=== PATIENT | male | born 1955 | race Caucasian/White ===

== ENCOUNTER → 2016-06-02 | Outpatient (CLI) | payer OTHER ==
[2016-06-02 15:49] VITALS: BP 135/87; PULSE 72; RESP 16; TEMP 97.9
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
== END | disposition home or self-care (01) ==
LOC: PNWHC3 13:55
PROVIDERS: ATTEND Specialist
DX: M51.36 Other intervertebral disc degeneration, lumbar region (principal); M47.896 Other spondylosis, lumbar region; M46.96 Unspecified inflammatory spondylopathy, lumbar region; M16.12 Unilateral primary osteoarthritis, left hip; M17.11 Unilateral primary osteoarthritis, right knee; Z88.0 Allergy status to penicillin; Z88.8 Allergy status to other drugs, medicaments and biological substances; Z88.6 Allergy status to analgesic agent; Z91.048 Other nonmedicinal substance allergy status; Z79.899 Other long term (current) drug therapy; Z87.891 Personal history of nicotine dependence; J45.909 Unspecified asthma, uncomplicated; K21.9 Gastro-esophageal reflux disease without esophagitis; I45.6 Pre-excitation syndrome
CPT/HCPCS: 80307; G0463; 80345; 80346; 80364; 99201

== ENCOUNTER → 2016-06-30 | Outpatient (CLI) | payer OTHER ==
[2016-06-30 12:44] VITALS: BP 132/69; PULSE 69; RESP 16; TEMP 97.6
--- NOTE | 2016-06-30 14:43 | P.PN ---
Subjective This is follow-up visit for this patient with a history of severe and chronic low back pain secondary to lumbar degenerative disc disease lumbar spondylosis with facet arthropathy, and also patient and osteoarthritis of the knee, and also arthritis of the left hip, and is currently on pain medications [place] 10/325 2 tablets every 6 hours Patient denies any side effects of the medication, denies excessive drowsiness or sleepiness, denies suicidal ideation, and reports that the current pain medication is helping To control the pain and improve activity of daily living Physical Examinations : 1-Constitutiona : Cooperative , not in acute distress . 2-HEENT : nech ; supple , no Lymphadenopathy , no Thyromegaly , normal thyroid size . eyes : no ptosis , no icterus, no photophobia . ENT : normal of hearing , normal oropharynx , no Thrush . 3- Respiratory : Chest clear to auscultations Bilaterally , no wheezing , no Rhonchi . 4- Cardiovascular : regular rate and rhythem , S1 , S2 , no S3 , no S4. 5- Gastrointestinal : abdomen soft no tenderness , bowel sounds positive all four quadrents , no organomegally . 6- Genitourinary : Defferred . 7- neurologic : Cranial nerve II to XII intact , no focal neurological deffecit . 8-psychatric : alert , oriented X 3 , appropriate affect , intact judgment and insight . 9-Lymphatic : no Lymphadenopathy . 10- musculoskeltal : exams of the cervical spine = motor strength normal bilateral upper extremities exams of the Lumber spine = motor strength lower extremities ,thigh and legs .4/5 deep tendon reflexes : normal Knee Jerk , normal ankle Jerk . lumber facet Loading Test positive strait leg raising test positive at 30 degree , RT ,LT , Fabere test positive RT and positive LT . Range of motion: Range of motion in flexion of the lumbar spine 30 degrees Range of motion range of motion of extension of the lumbar spine 10 Active and passive movement of the left hip associated with severe pain. Flexion and extension of the right knee associated with severe pain Assessment and plan = - Chronic low back pain secondary to lumbar degenerative disc disease , lumbar spondylosis with facet arthropathy without myelopathy , - chronic and current use of high-risk medication (Opioids). Osteoarthritis of the left hip , osteoarthritis of the right knee The patient was counseled about risk of opioid use, psychological risk associated with opioids and was orally counseled to not overuse , divert,or sell dictations to take medications as prescribed only , and to restore medication in safe location , and the patient counseled against driving while using narcotic medications, and also not to use alcohol or any illicit recreational drugs, the patient's verbalized understanding that the lack of compliance will result in failure to renew narcotic prescription and possible discharge from the clinic - diagnoses, prognosis, and treatment options including but not limited to physical therapy, surgical interventions, interventional therapies , and medication management including narcotics and adjuvant medication were discussed with the patient and all The questions answered -medication management =1-continue [place] 10/325 2 tablets every 6 hours dispense 240 with 1 refill. The patient already scheduled to have a left total hip replacement to be done at [facility], , and patient will follow up with our pain clinic in 2 months after the left hip replacement - Objective - Vital Signs Vital signs: Vital Signs Temp 97.6 F 06/30/16 12:34 Pulse 69 06/30/16 12:34 Resp 16 06/30/16 12:34 BP 132/69 06/30/16 12:34 Pulse Ox Intake & Output 06/29/16 06/30/16 06/30/16 18:59 06:59 18:59 Weight 118.841 kg
== END | disposition home or self-care (01) ==
LOC: PNWHC3 12:08
PROVIDERS: ATTEND Specialist
DX: M51.36 Other intervertebral disc degeneration, lumbar region (principal); M47.816 Spondylosis without myelopathy or radiculopathy, lumbar region; M46.96 Unspecified inflammatory spondylopathy, lumbar region; Z79.891 Long term (current) use of opiate analgesic; M16.12 Unilateral primary osteoarthritis, left hip; M17.11 Unilateral primary osteoarthritis, right knee
CPT/HCPCS: 99211

== ENCOUNTER → 2016-08-23 | Outpatient (CLI) | payer OTHER ==
[2016-08-23 12:59] VITALS: BP 132/72; PULSE 71; RESP 18; TEMP 97.6
--- NOTE | 2016-08-23 13:32 | P.PN ---
Progress Note - Text Patient returns for followup for chronic hip and knee pain, s/p left SOL in June 2016. Patient continues on [place] 10 8 pills/day medications for pain with some relief. Patient denies adverse drug effects from medications. Today, pt denies new-onset weakness, bowel/bladder incontinence, or any other signs or symptoms of cauda equina syndrome. There are no signs of acute intoxication, and no indications of medication diversion or overuse. In addition to above, 13-point review of systems is also negative for chest pain , shortness of breath, changes in vision, changes in hearing, new onset weakness , abdominal pain, diarrhea, extreme fatigue, malaise, fever, skin changes, homicidal or suicidal ideation, or bowel or bladder incontinence. Vital Signs: Reviewed in EMR Gen: WDWN, AAOx3, NAD HEENT: NCAT, EOMI, hearing grossly normal Pulm: resp unlabored Abd: soft, NT, ND Neck: supple, trachea midline L hip TTP over incision; C/D/I palpable crepitus in bilateral knees with flexion/extension Neuro: CN II-XII grossly intact, muscle strength lower extremities PRESERVED Imaging: Reviewed in EMR Assessment: 1. hip OA 2. knee OA 3. genicular neuralgia Plan: 1. Explanation: Opioid and psychological risk scores were reviewed. Diagnoses , prognoses, and multiple treatment options including but not limited to physical therapy, interventional therapies, adjuvant medical therapies, narcotic medication therapies, and surgery were discussed with the patient and all questions were answered to the patient's satisfaction. 2. Opioid agreement: Patient has previously signed narcotic agreement, and was orally counseled to not overuse, abuse, divert, or cell medications, and to take them as prescribed by only 1 healthcare provider. The patient was also counseled to store opioid medications in a safe and preferably locked location. Patient was also counseled against driving or operating heavy equipment while using narcotic medications and also to not use alcohol or any illicit or recreational drugs. The patient verbalized understanding that lack of compliance with any of the above and likely result in failure to renew narcotic prescriptions, possible discharge from the clinic, and possible legal ramifications thereafter if indicated. 3. Counseling: The patient was counseled extensively on BODY MASS INDEX, EXERCISE. Specifically, the patient was instructed regarding the importance of weight control and exercise in the context of both chronic pain and overall health. 4. Procedures: patient to read about genicular NBs 5. Consultations: None 6. Investigations: None 7. Medications: [place] 10/325 #210 with no refills 8. Disposition: f/u for re-eval in 4-6 weeks; patient continuing in physical therapy for now PQRS measures: 1-Patient's medications are documented in the chart. 2-Tobacco use is negative, counseling NOT given 3-Patient has not had a pneumococcal vaccine. 4-Advanced care planning discussed, patient unable to give. 5-Opioid contract signed with the patient. 6-Pain positive, follow-up visit or procedure scheduled 7-Patient's blood pressure measured and documented, and patient will follow up with the primary care due to hypertension. 8-Patient's weight was measured, and body mass index ABOVE the normal limits, and counseling was done. Patient instructed to follow up with PCP. 9-Patient WAS NOT identified as an unhealthy alcohol user.
== END | disposition home or self-care (01) ==
LOC: PNWHC3 12:39
PROVIDERS: ATTEND Anesthesiology
DX: M16.10 Unilateral primary osteoarthritis, unspecified hip (principal); M17.9 Osteoarthritis of knee, unspecified; Z96.642 Presence of left artificial hip joint
CPT/HCPCS: 99211

== ENCOUNTER → 2016-10-04 | Outpatient (CLI) | payer OTHER ==
--- NOTE | 2016-10-04 12:56 | P.PN ---
Progress Note - Text Patient returns for followup for chronic hip and knee pain, s/p left SOL in June 2016, now has improved pain in left hip that is allowing him to walk much better. Patient continues on [place] 10/325 7 pills/day medications for pain with some relief. Patient denies adverse drug effects from medications. Today, pt denies new-onset weakness, bowel/bladder incontinence, or any other signs or symptoms of cauda equina syndrome. There are no signs of acute intoxication, and no indications of medication diversion or overuse. In addition to above, 13-point review of systems is also negative for chest pain , shortness of breath, changes in vision, changes in hearing, new onset weakness , abdominal pain, diarrhea, extreme fatigue, malaise, fever, skin changes, homicidal or suicidal ideation, or bowel or bladder incontinence. Vital Signs: Reviewed in EMR Gen: WDWN, AAOx3, NAD HEENT: NCAT, EOMI, hearing grossly normal Pulm: resp unlabored Abd: soft, NT, ND Neck: supple, trachea midline L hip TTP over incision, well-healed palpable crepitus in bilateral knees with flexion/extension, worse R knee Neuro: CN II-XII grossly intact, muscle strength lower extremities PRESERVED Imaging: Reviewed in EMR Assessment: 1. hip OA 2. knee OA 3. genicular neuralgia Plan: 1. Explanation: Opioid and psychological risk scores were reviewed. Diagnoses , prognoses, and multiple treatment options including but not limited to physical therapy, interventional therapies, adjuvant medical therapies, narcotic medication therapies, and surgery were discussed with the patient and all questions were answered to the patient's satisfaction. 2. Opioid agreement: Patient has previously signed narcotic agreement, and was orally counseled to not overuse, abuse, divert, or cell medications, and to take them as prescribed by only 1 healthcare provider. The patient was also counseled to store opioid medications in a safe and preferably locked location. Patient was also counseled against driving or operating heavy equipment while using narcotic medications and also to not use alcohol or any illicit or recreational drugs. The patient verbalized understanding that lack of compliance with any of the above and likely result in failure to renew narcotic prescriptions, possible discharge from the clinic, and possible legal ramifications thereafter if indicated. 3. Counseling: The patient was counseled extensively on BODY MASS INDEX, EXERCISE. Specifically, the patient was instructed regarding the importance of weight control and exercise in the context of both chronic pain and overall health. 4. Procedures: patient to read about genicular NBs 5. Consultations: None 6. Investigations: None 7. Medications: [place] 10/325 #195 for first month, then #180 for second month 8. Disposition: f/u for re-eval in 4-6 weeks; patient continuing in physical therapy for now and Dr. Hannah is doing injections in his right knee. I told patient we will likely keep him at [place] #180 until he has surgery on his right knee PQRS measures: 1-Patient's medications are documented in the chart. 2-Tobacco use is negative, counseling NOT given 3-Patient has not had a pneumococcal vaccine. 4-Advanced care planning discussed, patient unable to give. 5-Opioid contract signed with the patient. 6-Pain positive, follow-up visit or procedure scheduled 7-Patient's blood pressure measured and documented, and patient will follow up with the primary care due to hypertension. 8-Patient's weight was measured, and body mass index ABOVE the normal limits, and counseling was done. Patient instructed to follow up with PCP. 9-Patient WAS NOT identified as an unhealthy alcohol user.
== END | disposition home or self-care (01) ==
LOC: PNWHC3 11:44
PROVIDERS: ATTEND Anesthesiology
DX: M16.10 Unilateral primary osteoarthritis, unspecified hip (principal); M17.9 Osteoarthritis of knee, unspecified; M79.2 Neuralgia and neuritis, unspecified
CPT/HCPCS: 99211

== ENCOUNTER → 2016-11-29 | Outpatient (CLI) | payer OTHER ==
[2016-11-29 12:53] VITALS: BP 142/90; PULSE 66; RESP 66; TEMP 97
--- NOTE | 2016-11-29 13:14 | P.PN ---
Progress Note - Text Patient returns for followup for chronic hip and knee pain, s/p left SOL in June 2016, now has improved pain in left hip that is allowing him to walk much better, although he still has some pain in his hip. Patient continues on [place] 10/325 6 pills/day for pain with some relief. Patient denies adverse drug effects from medications. Today, pt denies new-onset weakness, bowel/ bladder incontinence, or any other signs or symptoms of cauda equina syndrome. There are no signs of acute intoxication, and no indications of medication diversion or overuse. In addition to above, 13-point review of systems is also negative for chest pain , shortness of breath, changes in vision, changes in hearing, new onset weakness , abdominal pain, diarrhea, extreme fatigue, malaise, fever, skin changes, homicidal or suicidal ideation, or bowel or bladder incontinence. Vital Signs: Reviewed in EMR Gen: WDWN, AAOx3, NAD HEENT: NCAT, EOMI, hearing grossly normal Pulm: resp unlabored Abd: soft, NT, ND Neck: supple, trachea midline L hip TTP over incision, well-healed palpable crepitus in bilateral knees with flexion, worse in R knee; gross swelling in R knee, worst laterally Neuro: CN II-XII grossly intact, muscle strength lower extremities PRESERVED Imaging: Reviewed in EMR Assessment: 1. hip OA 2. knee OA 3. genicular neuralgia Plan: 1. Explanation: Opioid and psychological risk scores were reviewed. Diagnoses , prognoses, and multiple treatment options including but not limited to physical therapy, interventional therapies, adjuvant medical therapies, narcotic medication therapies, and surgery were discussed with the patient and all questions were answered to the patient's satisfaction. 2. Opioid agreement: Patient has previously signed narcotic agreement, and was orally counseled to not overuse, abuse, divert, or cell medications, and to take them as prescribed by only 1 healthcare provider. The patient was also counseled to store opioid medications in a safe and preferably locked location. Patient was also counseled against driving or operating heavy equipment while using narcotic medications and also to not use alcohol or any illicit or recreational drugs. The patient verbalized understanding that lack of compliance with any of the above and likely result in failure to renew narcotic prescriptions, possible discharge from the clinic, and possible legal ramifications thereafter if indicated. 3. Counseling: The patient was counseled extensively on BODY MASS INDEX, EXERCISE. Specifically, the patient was instructed regarding the importance of weight control and exercise in the context of both chronic pain and overall health. 4. Procedures: R genicular nerve block 5. Consultations: None 6. Investigations: None 7. Medications: [place] 10/325 #180 with one refill 8. Disposition: f/u for procedure as scheduled PQRS measures: 1-Patient's medications are documented in the chart. 2-Tobacco use is negative 3-Patient has not had a pneumococcal vaccine. 4-Advanced care planning discussed, patient unable to give. 5-Opioid contract signed with the patient. 6-Pain positive, follow-up visit or procedure scheduled 7-Patient's blood pressure measured and documented, and patient will follow up with the primary care due to hypertension. 8-Patient's weight was measured, and body mass index ABOVE the normal limits, and counseling was done. Patient instructed to follow up with PCP. 9-Patient WAS NOT identified as an unhealthy alcohol user.
== END | disposition home or self-care (01) ==
LOC: PNWHC3 11:54
PROVIDERS: ATTEND Anesthesiology
DX: M16.12 Unilateral primary osteoarthritis, left hip (principal); M17.9 Osteoarthritis of knee, unspecified; M79.2 Neuralgia and neuritis, unspecified
CPT/HCPCS: 99211

== ENCOUNTER 2016-12-27 09:09 | Day surgery (SDC) | payer OTHER ==
[2016-12-26 11:54] VITALS: BMI 36.2
[~2016-12-27 09:09] MED LIST: LACTATED RINGERS 1,000 ML IV SCH
[2016-12-27 09:41] VITALS: TEMP 96.4
[2016-12-27] MEDS ORDERED: LIDOCAINE 1% 20 ML VIAL (10MG/ML) FOR IV START INTRADERMA ONE (09:43)
--- NOTE | 2016-12-27 11:02 | P.PCN ---
Date of Procedure: 12/27/16 Preoperative Diagnosis: Right knee pain due to osteoarthritis Postoperative Diagnosis: Same as above Procedure(s) Performed: Right knee genicular nerve block for the superior lateral, superior medial, and inferior medial genicular nerves under fluoroscopic guidance Implants: Anesthesia: other (Moderate conscious sedation with IV fentanyl and Versed) Surgeon: Lilibeth Wilhelm Pathology: none sent Condition: stable Disposition: PACU Indications for Procedure: Operative Findings: Description of Procedure: The patient was seen in preop holding area consent was obtained then he was brought into the procedure 1 placed in the supine position. Skin was prepped with ChloraPrep and draped in a sterile manner. Lidocaine 1% was used to numb the skin up at the target points that were chosen as follows: For the superior genicular the target points were the connection between the femur shaft and the inferior epephyses laterally and medially. For the inferior medial genicular nerve the target point was at the connection between the tibial shaft and the superior epiphysis of the right tibia. The lateral view of fluoroscopy the target point was at the midpoint of the femur and tibial shafts. Used 22-gauge 3-1/2 inch Quincke spinal needles for this procedure and after verifying the needle tips position on the AP and lateral views of fluoroscopy I injected 2 MLS of through each needle of a mixture of 5 MLS Marcaine 0.5% +40 mg of Kenalog. Patient tolerated procedure well.
--- NOTE | 2016-12-27 11:05 | FL ---
EXAMINATION TYPE: FL guided pain mgmt statistic DATE OF EXAM: 12/27/2016 CLINICAL HISTORY: Knee pain. TECHNIQUE: Fluoroscopy. COMPARISON: None. FINDINGS: Fluoroscopic guidance was provided during pain relief procedure performed by Dr. Wilhelm . A total of 41 seconds of fluoroscopic time was utilized during the procedure and 3 spot images are acquired. Images acquired shows needle localization at several levels in the knee. IMPRESSION: As Above.
[2016-12-27 11:06] VITALS: RESP 18
[2016-12-27 11:28] VITALS: BP 133/77; PULSE 61
[2016-12-27] MEDS ORDERED: IV FLUID CONTINUATION 1,000 ML IV ONE (11:35)
== END 2016-12-27 11:47 | disposition home or self-care (01) ==
LOC: ORPAIN 09:09
DX: M17.11 Unilateral primary osteoarthritis, right knee (principal); Z88.6 Allergy status to analgesic agent; Z88.5 Allergy status to narcotic agent; Z88.0 Allergy status to penicillin
CPT/HCPCS: 64450; 99152; J2250; J3301; J3010

== ENCOUNTER → 2017-02-07 | Day surgery (SDC) | payer OTHER ==
[2017-01-19 12:45] VITALS: BMI 36.9
== END ==
LOC: ORPAIN 08:24
PROVIDERS: ATTEND Anesthesiology
DX: M51.36 Other intervertebral disc degeneration, lumbar region (principal)

== ENCOUNTER 2017-02-13 07:16 | Day surgery (SDC) | payer OTHER ==
[2017-02-13] MEDS ORDERED: LACTATED RINGERS 1,000 ML IV SCH (07:45)
[2017-02-13 07:49] VITALS: RESP 18; TEMP 97.7
[2017-02-13] MEDS ORDERED: IV FLUID CONTINUATION 800 ML IV ONE (08:34)
--- NOTE | 2017-02-13 08:34 | FL ---
Fluoroscopy History: RIGHT GENICULAR NERVE BLOCK. RIGHT GENICULAR NERVE BLOCK. 17 SEC FL TIME. 2 IMAGES SCANNED
[2017-02-13 08:43] VITALS: BP 136/75; PULSE 70
--- NOTE | 2017-02-13 09:01 | P.PCN ---
Date of Procedure: 02/13/17 Surgeon: Anil Nassar Pathology: none sent Condition: stable Disposition: PACU Description of Procedure: PREOPERATIVE DIAGNOSIS: chronic knee pain due to OA; genicular neuralgia POSTOPERATIVE DIAGNOSIS: same PROCEDURE DESCRIPTION: Patient presents for right knee genicular NB under fluoroscopy. The procedure is performed using fluoroscopic guidance during needle placement to assure proper position and maximize safety. No use of blood thinners. ANESTHESIA: Local with 1% lidocaine; conscious sedation EBL: Minimal PROCEDURE INDICATION: Patient with persistent knee pain due to genicular neuralgia and knee osteoarthritis, here for diagnostic genicular NB. Pt does not take any blood thinning medications. Patient got very little relief from first genicular NB done in December 2016. PROCEDURE DESCRIPTION: The patient was seen and identified in the preoperative area. Risks, benefits, complications, and alternatives were discussed with the patient (including but not limited to incomplete pain relief, bleeding, infection, nerve damage, and allergies to medications), the patient agreed to proceed with the procedure and signed the consent after all questions were answered. Patient was taken to the OR and time out was completed to verify proper patient, position, laterality of pain, and allergies. Pt was placed in the supine position and a pillow was placed under the right knee to induce flexion. The right knee was prepped and draped in the usual sterile fashion. Using AP fluoroscopic guidance, the right knee was identified as were the areas of the superior medial epicondyle of the right femur, superior lateral epicondyle of the right femur, and distal medial epicondyle of the right tibia. Using lidocaine 1% for skin and subcutaneous tissue infiltrations, these three areas were accessed using 22-gauge Quincke-type 3.5-inch spinal needles and the needle tips were placed directly on the periosteum at all three locations. Lateral view fluoroscopy demonstrated that the needles were approximately long term through the leg and the tips of the needles were at roughly the long term point of the bone on both the femur and the tibia. After negative aspiration for heme and in the absence of paresthesias, 2 ml of the 6 ml mixture of 5 ml 0.5% PF bupivacaine and 40 mg Kenalog was injected at each site. [place] were withdrawn intact. At the end of the procedure, the skin was cleansed and bandages were applied. COMPLICATIONS: None. DISPOSITION/PLAN: The patient taken to the recovery area after the procedure in a stable condition for observation. Patient was reexamined prior to discharge and there were no issues. Patient was discharged home, accompanied by an adult, after meeting discharged criteria. Discharge instructions were give to the patient by the staff. Patient was specifically instructed not to drive today and to rest for the rest of the day. Patient will follow up in clinic in 4-6 weeks.
== END 2017-02-13 09:08 | disposition home or self-care (01) ==
LOC: ORPAIN 07:16
PROVIDERS: ATTEND Anesthesiology
DX: G89.29 Other chronic pain (principal); M17.11 Unilateral primary osteoarthritis, right knee; G58.8 Other specified mononeuropathies; I10 Essential (primary) hypertension; F41.9 Anxiety disorder, unspecified; Z88.5 Allergy status to narcotic agent
CPT/HCPCS: 64450; 99152; J2250; J3301; J3010

== ENCOUNTER → 2017-03-13 | Outpatient (CLI) | payer OTHER ==
[2017-03-13 14:32] VITALS: BP 140/73; PULSE 67; RESP 16; TEMP 98.1
--- NOTE | 2017-03-13 16:01 | P.PN ---
Subjective Progress Note Date: 03/13/17 This is a 61 years old male with a history of chronic right knee pain diagnosed with osteoarthritis of the right knee and right genicular nerve neuralgia, we have done diagnostic genicular block 2 patient reported he had no benefit after the genicular nerve block, and he is here to discuss the result of the treatment and also for medication refill is currently on [place] 10/325 every 4 hours he denies any side effect of the medication, he denies any excessive drowsiness or sleepiness and he denies any suicidal ideation Objective - Vital Signs Vital signs: Vital Signs Temp 98.1 F 03/13/17 14:20 Pulse 67 03/13/17 14:20 Resp 16 03/13/17 14:20 BP 140/73 03/13/17 14:20 Pulse Ox Intake & Output 03/12/17 03/13/17 03/13/17 18:59 06:59 18:59 Weight 120.202 kg - Exam Physical Examinations : 1-Constitutiona : Cooperative , not in acute distress . 2-HEENT : nech ; supple , no Lymphadenopathy , normal thyroid size . eyes : no ptosis , no icterus, no photophobia . ENT : normal of hearing , normal oropharynx , no Thrush . 3- Respiratory : Chest clear to auscultations Bilaterally , no wheezing , no Rhonchi . 4- Cardiovascular : regular rate and rhythem , S1 , S2 , no S3 , no S4. 5- Gastrointestinal : abdomen soft no tenderness , bowel sounds positive all four quadrents , no organomegally . 6- Genitourinary : Defferred . 7- neurologic : Cranial nerve II to XII intact , no focal neurological deffecit . 8-psychatric : alert , oriented X 3 , appropriate affect , intact judgment and insight . 9-Lymphatic : no Lymphadenopathy . 10- musculoskeltal : Flexion and extension of right knee , associated to severe pain there is no sign of effusion, no erythema Assessment and Plan Assessment: Assessment and plan= Chronic right knee pain secondary to stress over the right knee/right geniculate neuralgia , status post right geniculate a block 2 without any benefit chronic and current use of high-risk medication (opioids) Patient denies any side effects of the current pain medication and the current treatment/medication ML and the patient to do activity of daily living , Diagnoses, prognosis, treatment options, including but not limited to physical therapy, medication management, interventional therapies, and surgery, were discussed with the patient All the questions answered Patient signed the narcotic agreement, and he was orally counseled, not to overuse, not to abuse, not to Divert , not tp sell pain medication, and to take it as prescribed only, Patient was counseled not to drive or operate heavy equipment while using narcotic medication, and advised not to use alcohol or any Illicit drugs while using the narcotis, the patient's verbalized understanding that lack of compliance with any of the above instructions and will likely to cause discharge from the pain service, not to renew his narcotic prescriptions Medication managements= patient will be given prescription refills for 1-[place] 10/325 every 4 hours dispense 180 with 1 refil Interventional pain management=none Refferal = patient already referred to see an orthopedic surgeon regarding Synvisc injection in the right knee, and possible right knee replacement Follow-up= 2 months ,
== END | disposition home or self-care (01) ==
LOC: PNWHC3 13:44
PROVIDERS: ATTEND Specialist
DX: M25.561 Pain in right knee (principal); G89.29 Other chronic pain; Z79.891 Long term (current) use of opiate analgesic
CPT/HCPCS: 99211

== ENCOUNTER → 2017-05-08 | Outpatient (CLI) | payer OTHER ==
[2017-05-08 14:59] VITALS: BP 152/73; PULSE 65; RESP 16; TEMP 97.4
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
== END | disposition home or self-care (01) ==
LOC: PNWHC3 13:54
PROVIDERS: ATTEND Anesthesiology
DX: M17.11 Unilateral primary osteoarthritis, right knee (principal); E66.01 Morbid (severe) obesity due to excess calories; Z79.891 Long term (current) use of opiate analgesic
CPT/HCPCS: 99211

== ENCOUNTER → 2017-07-03 | Outpatient (CLI) | payer OTHER ==
[2017-07-03 12:04] VITALS: BP 154/94; PULSE 70; RESP 16; TEMP 97.8
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
== END | disposition home or self-care (01) ==
LOC: PNWHC3 11:46
PROVIDERS: ATTEND Anesthesiology
DX: M17.11 Unilateral primary osteoarthritis, right knee (principal)
CPT/HCPCS: 99211

== ENCOUNTER → 2017-08-28 | Outpatient (CLI) | payer OTHER ==
[2017-08-28 14:29] VITALS: BP 134/81; PULSE 76; RESP 20
--- NOTE | 2017-08-28 17:13 | P.PAINPG ---
Subjective Progress Note Date: 08/28/17 62-year-old patient who presents for follow-up visit with a chief complaint of right knee pain, as well as low back pain. Patient in the past has had genicular nerve blocks 2 in his right knee which provided no benefit. Patient is slightly hesitant to pursue with any other interventional procedures at this time on his right knee. He had a left total hip arthroplasty done last year, and is awaiting a right total knee arthroplasty. Reviewing patient's medications, I had a lengthy discussion regarding the combination of opiates and benzodiazepines. Patient is being prescribed 180 tablets of [place] every 30 days, which I informed him was an excessive amount of opiates, and also taking diazepam 10 mg 1-2 times a day. I informed him, that this is not an opioid clinic, and that other potential therapies need to be attempted in order to minimize his overall opiate consumption. Patient is very resistant to being decreased from 180 tablets, and also very resistant to stopping his benzodiazepine. Patient became emotional when I discussed weaning off opiates and/or discontinuing his benzodiazepines altogether. He has not reported any negative side effects with regards to opiate and benzodiazepine consumption. I did educate him with regards to the negative effects of opiates on an individual 's body which include decrease and altered hormone function, altered pain perception, tolerance, withdrawal, and . Patient understands these risks and states that he requires his medications in order to maintain minimal activities of daily living. He states that without the medication, he would not be able to even get out of bed. Last Vital Signs 08/28/17 14:19 Pulse Rate 76 Respiratory 20 Rate Blood Pressure 134/81 O2 Sat by Pulse 94 L Oximetry Physical exam: Constitutional: Alert and oriented 3 Respiratory: Nonlabored respirations, no wheezing Cardio: Regular rate and rhythm Musculoskeletal: Positive facet loading left greater than right, paraspinal muscle tenderness, pain with flexion, pain with extension, lumbar spine range of motion limited secondary to pain. Right knee: Enlarged right knee, tender to palpation, limited range of motion , no erythema edema noted. Gait: Wobbly gait, antalgic gait Psychiatric: Appropriate mood and affect, no drug-seeking behavior appreciated Assessment and Plan Assessment: Assessment and plan: Chronic right knee pain secondary to stress over the right knee/right geniculate neuralgia , status post right geniculate a block 2 without any benefit chronic and current use of high-risk medication (opioids) Patient denies any side effects of the current pain medication and the current treatment/medication ML and the patient to do activity of daily living , Diagnoses, prognosis, treatment options, including but not limited to physical therapy, medication management, interventional therapies, and surgery, were discussed with the patient All the questions answered Patient signed the narcotic agreement, and he was orally counseled, not to overuse, not to abuse, not to Divert , not tp sell pain medication, and to take it as prescribed only. Patient was counseled not to drive or operate heavy equipment while using narcotic medication, and advised not to use alcohol or any Illicit drugs while using the narcotics, the patient's verbalized understanding that lack of compliance with any of the above instructions and will likely to cause discharge from the pain service, not to renew his narcotic prescriptions. Plan: #1 [place] 10 mg/325 mg 180 tablets with no refill #2 MAPs appropriate with patient's history #3 discussed in detail alternative therapies other than opiates and benzodiazepines for patient's chronic pain conditions. Risks and benefits of lumbar medial branch block discussed with patient and we will proceed in 2-4 weeks with bilateral lumbar medial branch blocks at L2 3 4 and 5 medial branches. Objective - Vital Signs Vital signs: Vital Signs Temp Pulse 76 08/28/17 14:19 Resp 20 08/28/17 14:19 BP 134/81 08/28/17 14:19 Pulse Ox 94 L 08/28/17 14:19 Intake & Output 08/27/17 08/28/17 08/28/17 18:59 06:59 18:59 Weight 124.738 kg PQRS Measure Charge Sheet PQRS Narrative: Smoking Status Former smoker Do You Want the Pneumonia No Vaccine AT THIS TIME? Narcotic Agreement Date Signed 06/02/16 Blood Pressure 134/81 Pain Intensity [Generalized] 9 Scale Used Numeric (1 - 10) Hx Alcohol Use (MH) No Home Medications: Ambulatory Orders Butalb/APAP/Caff 50-325-40Mg [Fioricet 50-325-40] 1 tab PO Q4HR PRN 06/02/16 Diazepam [Valium] 10 mg PO Q6HR 06/02/16 Famotidine 20 mg PO BID PRN 06/02/16 SUMAtriptan SUCCINATE [Imitrex] 25 mg PO DAILY PRN 06/02/16 Zolpidem [Ambien] 10 mg PO HS PRN 06/02/16 predniSONE 5 mg PO DAILY PRN 06/02/16 Albuterol Inhaler [Ventolin Hfa Inhaler] 2 puff INHALATION Q4-6H PRN 06/30/16 Budesonide [Pulmicort Flexhaler] 2 puff INHALATION BID 06/30/16 Ergocalciferol (Vitamin D2) [Vitamin D2] 50,000 unit PO FR 06/30/16 Fluconazole [Diflucan] 100 mg PO DIRECTED PRN 06/30/16 Folic Acid 1 mg PO DAILY 06/30/16 Ketoconazole 2% Shampoo [Nizoral] 1 applic TOPICAL DIRECTED PRN 06/30/16 SUMAtriptan SUCCINATE [Sumavel Dosepro] 6 mg SQ DIRECTED PRN 06/30/16 diphenhydrAMINE [Benadryl] 25 mg PO HS PRN 06/30/16 Hydrocodone/Acetaminophen [[place] 10-325] 1 tab PO Q4H PRN #180 tab 03/13/17 Hydrocodone/Acetaminophen [[place] 10-325] 1 tab PO Q4H PRN #180 tab 07/03/17 Hydrocodone/Acetaminophen [[place] 10-325] 1 tab PO Q4H PRN #180 tab 07/03/17 Levofloxacin [Levaquin] 500 mg PO HS 07/03/17
== END | disposition home or self-care (01) ==
LOC: PNWHC3 13:33
PROVIDERS: ATTEND Anesthesiology
DX: G89.29 Other chronic pain (principal); M25.561 Pain in right knee; M54.5 Low back pain; G51.1 Geniculate ganglionitis; Z79.891 Long term (current) use of opiate analgesic; Z87.891 Personal history of nicotine dependence; Z79.52 Long term (current) use of systemic steroids; Z79.51 Long term (current) use of inhaled steroids; Z79.899 Other long term (current) drug therapy
CPT/HCPCS: 99211

== ENCOUNTER → 2017-09-25 | Outpatient (CLI) | payer OTHER ==
[2017-09-25 13:34] VITALS: BP 147/61; PULSE 66; RESP 16; TEMP 98.1
--- NOTE | 2017-09-25 14:17 | P.PN ---
Progress Note - Text Progress Note Date: 09/25/17 Patient returns for followup for chronic hip and knee pain, s/p left SOL in June 2016, now has improved pain in left hip that is allowing him to walk much better, although he still has some pain in his hip. Patient continues on [place] 10/325 6 pills/day for pain with some relief. He does not want to have knee surgery yet. Patient denies adverse drug effects from medications. Today , pt denies new-onset weakness, bowel/bladder incontinence, or any other signs or symptoms of cauda equina syndrome. There are no signs of acute intoxication, and no indications of medication diversion or overuse. In addition to above, 13-point review of systems is also negative for chest pain , shortness of breath, changes in vision, changes in hearing, new onset weakness , abdominal pain, diarrhea, extreme fatigue, malaise, fever, skin changes, homicidal or suicidal ideation, or bowel or bladder incontinence. Vital Signs: Reviewed in EMR Gen: WDWN, AAOx3, NAD HEENT: NCAT, EOMI, hearing grossly normal Pulm: resp unlabored Abd: soft, NT, ND Neck: supple, trachea midline L hip TTP over incision, well-healed palpable crepitus in bilateral knees with flexion, worse in R knee; gross swelling in R knee, worst laterally Neuro: CN II-XII grossly intact, muscle strength lower extremities PRESERVED Imaging: Reviewed in EMR Assessment: 1. hip OA 2. knee OA 3. genicular neuralgia Plan: 1. Explanation: Opioid and psychological risk scores were reviewed. Diagnoses , prognoses, and multiple treatment options including but not limited to physical therapy, interventional therapies, adjuvant medical therapies, narcotic medication therapies, and surgery were discussed with the patient and all questions were answered to the patient's satisfaction. 2. Opioid agreement: Patient has previously signed narcotic agreement, and was orally counseled to not overuse, abuse, divert, or cell medications, and to take them as prescribed by only 1 healthcare provider. The patient was also counseled to store opioid medications in a safe and preferably locked location. Patient was also counseled against driving or operating heavy equipment while using narcotic medications and also to not use alcohol or any illicit or recreational drugs. The patient verbalized understanding that lack of compliance with any of the above and likely result in failure to renew narcotic prescriptions, possible discharge from the clinic, and possible legal ramifications thereafter if indicated. 3. Counseling: The patient was counseled extensively on BODY MASS INDEX, EXERCISE. Specifically, the patient was instructed regarding the importance of weight control and exercise in the context of both chronic pain and overall health. 4. Procedures: none for now 5. Consultations: None 6. Investigations: None 7. Medications: [place] 10/325 #180 with no refill. Will discuss with Dr. Gupta regarding decreasing the patient's benzos or Ambien in order to maintain safety, as the patient is prescribed six [place] pills per day currently. We will discuss specifically reducing either the benzos or the opioids or will consider referring the patient back to Dr. Gupta if that is her preference. 8. Disposition: f/u for re-eval in 4 weeks PQRS measures: 1-Patient's medications are documented in the chart. 2-Tobacco use is negative 3-Patient has not had a pneumococcal vaccine. 4-Advanced care planning discussed, patient unable to give. 5-Opioid contract signed with the patient. 6-Pain positive, follow-up visit or procedure scheduled 7-Patient's blood pressure measured and documented, and patient will follow up with the primary care due to hypertension. 8-Patient's weight was measured, and body mass index ABOVE the normal limits, and counseling was done. Patient instructed to follow up with PCP. 9-Patient WAS NOT identified as an unhealthy alcohol user.
== END | disposition home or self-care (01) ==
LOC: PNWHC3 13:05
PROVIDERS: ATTEND Anesthesiology
DX: G89.29 Other chronic pain (principal); M25.569 Pain in unspecified knee; M25.559 Pain in unspecified hip; M79.2 Neuralgia and neuritis, unspecified; M16.10 Unilateral primary osteoarthritis, unspecified hip; M17.10 Unilateral primary osteoarthritis, unspecified knee; Z96.642 Presence of left artificial hip joint; Z79.891 Long term (current) use of opiate analgesic
CPT/HCPCS: 99211

== ENCOUNTER → 2017-10-24 | Outpatient (CLI) | payer OTHER ==
[2017-10-24 13:00] VITALS: BP 164/87; PULSE 70; RESP 18
--- NOTE | 2017-10-24 13:17 | P.PN ---
Progress Note - Text Progress Note Date: 10/24/17 Patient returns for followup for chronic hip and knee pain, s/p left SOL in June 2016, now has improved pain in left hip that is allowing him to walk much better, although he still has some pain in his hip. Patient continues on [place] 10/325 6 pills/day for pain with some relief. He is now off Ambien and is decreasing his Valium substantially (down to one pill/day from four pills/day ) and his PCP plans to start an antidepressant to help him sleep. Patient denies adverse drug effects from medications. Today, pt denies new-onset weakness, bowel/bladder incontinence, or any other signs or symptoms of cauda equina syndrome. There are no signs of acute intoxication, and no indications of medication diversion or overuse. In addition to above, 13-point review of systems is also negative for chest pain , shortness of breath, changes in vision, changes in hearing, new onset weakness , abdominal pain, diarrhea, extreme fatigue, malaise, fever, skin changes, homicidal or suicidal ideation, or bowel or bladder incontinence. Vital Signs: Reviewed in EMR Gen: WDWN, AAOx3, NAD HEENT: NCAT, EOMI, hearing grossly normal Pulm: resp unlabored Abd: soft, NT, ND Neck: supple, trachea midline decreased ROM bilateral knees due to pain Imaging: Reviewed in EMR Assessment: 1. hip OA 2. knee OA 3. genicular neuralgia Plan: 1. Explanation: Opioid and psychological risk scores were reviewed. Diagnoses , prognoses, and multiple treatment options including but not limited to physical therapy, interventional therapies, adjuvant medical therapies, narcotic medication therapies, and surgery were discussed with the patient and all questions were answered to the patient's satisfaction. 2. Opioid agreement: Patient has previously signed narcotic agreement, and was orally counseled to not overuse, abuse, divert, or cell medications, and to take them as prescribed by only 1 healthcare provider. The patient was also counseled to store opioid medications in a safe and preferably locked location. Patient was also counseled against driving or operating heavy equipment while using narcotic medications and also to not use alcohol or any illicit or recreational drugs. The patient verbalized understanding that lack of compliance with any of the above and likely result in failure to renew narcotic prescriptions, possible discharge from the clinic, and possible legal ramifications thereafter if indicated. 3. Counseling: The patient was counseled extensively on BODY MASS INDEX, EXERCISE. Specifically, the patient was instructed regarding the importance of weight control and exercise in the context of both chronic pain and overall health. 4. Procedures: none for now 5. Consultations: None 6. Investigations: None 7. Medications: [place] 10/325 #180 with no refill. Patient is now off Ambien and weaning Valium. Will likely plan to decrease opioids in future if possible. 8. Disposition: f/u for re-eval in 4 weeks PQRS measures: 1-Patient's medications are documented in the chart. 2-Tobacco use is negative 3-Patient has not had a pneumococcal vaccine. 4-Advanced care planning discussed, patient unable to give. 5-Opioid contract signed with the patient. 6-Pain positive, follow-up visit or procedure scheduled 7-Patient's blood pressure measured and documented, and patient will follow up with the primary care due to hypertension. 8-Patient's weight was measured, and body mass index ABOVE the normal limits, and counseling was done. Patient instructed to follow up with PCP. 9-Patient WAS NOT identified as an unhealthy alcohol user.
== END | disposition home or self-care (01) ==
LOC: PNWHC3 12:24
PROVIDERS: ATTEND Anesthesiology
DX: G89.29 Other chronic pain (principal); M25.552 Pain in left hip; M16.10 Unilateral primary osteoarthritis, unspecified hip; M17.9 Osteoarthritis of knee, unspecified; M79.2 Neuralgia and neuritis, unspecified; Z79.891 Long term (current) use of opiate analgesic; Z96.642 Presence of left artificial hip joint
CPT/HCPCS: 99211

== ENCOUNTER → 2017-11-21 | Outpatient (CLI) | payer OTHER ==
--- NOTE | 2017-11-21 15:00 | P.PN ---
Progress Note - Text Progress Note Date: 11/21/17 Progress Note - Text Progress Note Date: 11/21/17 Patient returns for follow-up visit with regards to right knee pain. Patient is well known to our clinic, he is being prescribed [place] 10 mg with 180 tablets dispensed a month. He had a history of being on benzodiazepines and Ambien his prim being prescribed by his primary care doctor. We sent him a letter in order to have him weaned off of those medications considering the risks when taken with opiates. She states it is no longer on Ambien, and that he is weaning off of the benzodiazepine. Patient has tried procedures in the past for his right knee pain and none have provided any benefit. Patient is upset with regards to the limit to the number of tablets we can prescribe him per month, and the fact that he has to, and a [id number] basis to receive his prescription. I informed the patient that we be happy to refer him to another pain management clinic for consultation and potentially taking over management. I also discussed with him intrathecal therapy as opposed to oral medication, patient has no interest intrathecal therapy or any other interventional therapies. Patient states that he has gained weight since he was decreased from 240 tablets 180 tablets, the patient has been taking oral steroids as a replacement for chronic pain in his knee. In addition to above, 13-point review of systems is also negative for chest pain , shortness of breath, changes in vision, changes in hearing, new onset weakness , abdominal pain, diarrhea, extreme fatigue, malaise, fever, skin changes, homicidal or suicidal ideation, or bowel or bladder incontinence. Vital Signs: Reviewed in EMR Gen: WDWN, AAOx3, NAD HEENT: NCAT, EOMI, hearing grossly normal Pulm: resp unlabored Abd: soft, NT, ND Neck: supple, trachea midline decreased ROM bilateral knees due to pain Imaging: Reviewed in EMR Assessment: 1. hip OA 2. knee OA 3. genicular neuralgia Plan: 1. Explanation: Opioid and psychological risk scores were reviewed. Diagnoses , prognoses, and multiple treatment options including but not limited to physical therapy, interventional therapies, adjuvant medical therapies, narcotic medication therapies, and surgery were discussed with the patient and all questions were answered to the patient's satisfaction. 2. Opioid agreement: Patient has previously signed narcotic agreement, and was orally counseled to not overuse, abuse, divert, or cell medications, and to take them as prescribed by only 1 healthcare provider. The patient was also counseled to store opioid medications in a safe and preferably locked location. Patient was also counseled against driving or operating heavy equipment while using narcotic medications and also to not use alcohol or any illicit or recreational drugs. The patient verbalized understanding that lack of compliance with any of the above and likely result in failure to renew narcotic prescriptions, possible discharge from the clinic, and possible legal ramifications thereafter if indicated. 3. Counseling: The patient was counseled extensively on BODY MASS INDEX, EXERCISE. Specifically, the patient was instructed regarding the importance of weight control and exercise in the context of both chronic pain and overall health. 4. Procedures: none for now 5. Consultations: None 6. Investigations: Maps reviewed and appropriate, UDS today is follow-up with results on next visit. 7. Medications: [place] 10/325 #180 with no refill. Patient is now off Ambien and weaning Valium. 8. Disposition: f/u for re-eval in 4 weeks PQRS measures: 1-Patient's medications are documented in the chart. 2-Tobacco use is negative 3-Patient has not had a pneumococcal vaccine. 4-Advanced care planning discussed, patient unable to give. 5-Opioid contract signed with the patient. 6-Pain positive, follow-up visit or procedure scheduled 7-Patient's blood pressure measured and documented, and patient will follow up with the primary care due to hypertension. 8-Patient's weight was measured, and body mass index ABOVE the normal limits, and counseling was done. Patient instructed to follow up with PCP. 9-Patient WAS NOT identified as an unhealthy alcohol user.
== END | disposition home or self-care (01) ==
LOC: PNWHC3 13:09
PROVIDERS: ATTEND Anesthesiology
DX: M17.9 Osteoarthritis of knee, unspecified (principal); M16.9 Osteoarthritis of hip, unspecified; G58.8 Other specified mononeuropathies; Z79.891 Long term (current) use of opiate analgesic
CPT/HCPCS: 99211

== ENCOUNTER → 2017-12-20 | Outpatient (CLI) | payer OTHER ==
[2017-12-20 13:33] VITALS: BP 155/82; PULSE 76; RESP 20
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
== END | disposition home or self-care (01) ==
LOC: PNWHC3 13:03
PROVIDERS: ATTEND Pain Medicine Pain Medicine
DX: M25.561 Pain in right knee (principal); M25.562 Pain in left knee; F13.232 Sedative, hypnotic or anxiolytic dependence with withdrawal with perceptual disturbance; Z98.890 Other specified postprocedural states; Z79.891 Long term (current) use of opiate analgesic; Z96.642 Presence of left artificial hip joint; Z87.891 Personal history of nicotine dependence; Z79.1 Long term (current) use of non-steroidal anti-inflammatories (NSAID); Z79.51 Long term (current) use of inhaled steroids
CPT/HCPCS: 99211

== ENCOUNTER → 2018-01-16 | Outpatient (CLI) | payer OTHER ==
[2018-01-16 12:29] VITALS: BP 150/81; PULSE 64; RESP 18; TEMP 97.8
--- NOTE | 2018-01-16 13:35 | P.PAINPG ---
Subjective Progress Note Date: 01/16/18 Principal diagnosis: Leg pain, back pain This very pleasant 52-year-old gentleman with a Candidate medical history with multiple orthopedic problems and previous hip replacement. He presents today for medication management. At his last appointment, I did prescribe opiates for him as well as prescribed a low-dose benzodiazepine as he had previously been on 40 mg daily and this was stopped abruptly and he suffered from seizures. He reports he is doing well at this time. 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 Objective - Vital Signs Vital signs: Vital Signs Temp 97.8 F 01/16/18 12:20 Pulse 64 01/16/18 12:20 Resp 18 01/16/18 12:20 BP 150/81 01/16/18 12:20 Pulse Ox Intake & Output 01/15/18 01/16/18 01/16/18 18:59 06:59 18:59 Weight 124.284 kg - Exam He is alert and oriented. He is very sharp mentally. He does walk with a cane. He is in no acute distress. Assessment and Plan (1) Left knee pain Narrative/Plan: I will refill the patient's [place] 10/325 or 120 tablets this month. I will also give him another prescription for Valium 5 mg twice daily. I will give him refill prescriptions for this as well. In the future plan will be to wean his medications further. Current Visit: No Status: Acute Code(s): M25.562 - PAIN IN LEFT KNEE SNOMED Code(s): 99709999 (2) Right knee pain Current Visit: No Status: Acute Code(s): M25.561 - PAIN IN RIGHT KNEE SNOMED Code(s): 39887438 PQRS Measure Charge Sheet Measure #130: Documentation of Current Meds in Medical Chart: Patient's medications documented in chart Measure #226: Tobacco Use: Screen & Cessation Intervention: Pt not a tobacco user Measure #111: Pneumonia Vaccination: Pneumococcal vaccine NOT administered or previously given Measure #47: Advance Care Plan: Advance care planning discussed & documented, pt chose/unable to give Measure #412: Opioid Treatment Agreement: Documented signed opioid trtmnt agreemnt min once during opioid trtmnt Measure #408: Opioid Therapy Follow-up Evaluation: Patient had f/u eval minimum every 3 months during opioid therapy Measure #317: Preventitive Care & Scrn High Bld Press & F/U: Normal blood pressure, f/u not required Measure #128: Body Mass Index (BMI) Screening & Follow-up: BMI documented ABOVE normal parameters - f/u documented Measure #131: Pain Assessment & Follow-up: Pain positive & plan documented Measure #431: Unhealthy Alcohol Use Preventative Care & Scrn: Patient not identified as an unhealthy alcohol user PQRS Narrative: Smoking Status Former smoker Do You Want the Pneumonia Vaccine Up to Date Vaccine AT THIS TIME? Narcotic Agreement Date Signed 06/02/16 Blood Pressure 150/81 Pain Intensity [Generalized] 10 Hx Alcohol Use (MH) No Home Medications: Ambulatory Orders Butalb/APAP/Caff 50-325-40Mg [Fioricet 50-325-40] 1 tab PO Q4HR PRN 06/02/16 Famotidine 20 mg PO BID PRN 06/02/16 SUMAtriptan SUCCINATE [Imitrex] 25 mg PO DAILY PRN 06/02/16 predniSONE 5 mg PO DAILY PRN 06/02/16 Albuterol Inhaler [Ventolin Hfa Inhaler] 2 puff INHALATION Q4-6H PRN 06/30/16 Budesonide [Pulmicort Flexhaler] 2 puff INHALATION BID 06/30/16 Ergocalciferol (Vitamin D2) [Vitamin D2] 50,000 unit PO FR 06/30/16 Folic Acid 1 mg PO DAILY 06/30/16 Ketoconazole 2% Shampoo [Nizoral] 1 applic TOPICAL DIRECTED PRN 06/30/16 diphenhydrAMINE [Benadryl] 25 mg PO HS PRN 06/30/16 Hydrocodone/Acetaminophen [[place] 10-325] 1 tab PO Q4H PRN 30 Days #180 tab 10/24 Controlled Substance Measures - Controlled Substance Measures Is patient prescribed a controlled substance at discharge?: Yes When asked, does pt state using other controlled substances?: No If prescribed controlled substance>3 days was MAPS reviewed?: Yes
== END | disposition home or self-care (01) ==
LOC: PNWHC3 12:03
PROVIDERS: ATTEND Pain Medicine Pain Medicine
DX: M25.562 Pain in left knee (principal); M25.561 Pain in right knee; Z87.891 Personal history of nicotine dependence; Z79.899 Other long term (current) drug therapy; Z79.891 Long term (current) use of opiate analgesic
CPT/HCPCS: 99211

== ENCOUNTER → 2018-03-13 | Outpatient (CLI) | payer OTHER ==
[2018-03-13 15:29] VITALS: BP 166/95; RESP 16
--- NOTE | 2018-03-14 10:32 | P.PAINPG ---
Subjective Progress Note Date: 03/13/18 Patient returns for followup for chronic Left hip ,and Right knee pain, s/p left SOL in June 2016, we have done a right genitofemoral nerve block patient had no benefit from it , and he continued to have pain in his left hip and right knee, intensity interfering with her quality of life, Patient continues on [place] 10/325 6 pills/day for pain with some relief. And patient getting Valium 5 mg twice a day , previously he was on Valium 10 mg 4 times a day , each was stopped suddenly and he had seizure, currently at this current dose 5 mg twice a day patient feels irritable, and his complaining about him that he is always angry at home, and feeling very anxious He does not want to have knee surgery yet. Patient denies adverse drug effects from medications. Today, pt denies new-onset weakness, bowel/bladder incontinence, or any other signs or symptoms of cauda equina syndrome. There are no signs of acute intoxication, and no indications of medication diversion or overuse. In addition to above, 13-point review of systems is also negative for chest pain , shortness of breath, changes in vision, changes in hearing, new onset weakness , abdominal pain, diarrhea, extreme fatigue, malaise, fever, skin changes, homicidal or suicidal ideation, or bowel or bladder incontinence. Vital Signs: Reviewed in EMR Gen: WDWN, AAOx3, NAD HEENT: NCAT, EOMI, hearing grossly normal Pulm: resp unlabored Abd: soft, NT, ND Neck: supple, trachea midline L hip TTP over incision, well-healed , flexion and extension of the left hip associated with pain palpable crepitus in bilateral knees with flexion, worse in R knee; gross swelling in R knee, worst laterally Neuro: CN II-XII grossly intact, muscle strength lower extremities PRESERVED Assessment: 1. left hip OA , patient continued to have pain after left hip replacement 2. knee OA bilateral more severe on the right side 3. genicular neuralgia Plan: 1. Explanation: Opioid and psychological risk scores were reviewed. Diagnoses , prognoses, and multiple treatment options including but not limited to physical therapy, interventional therapies, adjuvant medical therapies, narcotic medication therapies, and surgery were discussed with the patient and all questions were answered to the patient's satisfaction. 2. Opioid agreement: Patient has previously signed narcotic agreement, and was orally counseled to not overuse, abuse, divert, or cell medications, and to take them as prescribed by only 1 healthcare provider. The patient was also counseled to store opioid medications in a safe and preferably locked location. Patient was also counseled against driving or operating heavy equipment while using narcotic medications and also to not use alcohol or any illicit or recreational drugs. The patient verbalized understanding that lack of compliance with any of the above and likely result in failure to renew narcotic prescriptions, possible discharge from the clinic, and possible legal ramifications thereafter if indicated. 3. Counseling: The patient was counseled extensively on BODY MASS INDEX, EXERCISE. Specifically, the patient was instructed regarding the importance of weight control and exercise in the context of both chronic pain and overall health. 4. Procedures: none for now 5. Consultations: None 6. Investigations: None 7. Medications: [place] 10/325 #180 with no refill. the patient is prescribed six [place] pills per day currently. I will increase the volume to 5 mg 3 times a day 8. Disposition: f/u for re-eval in 8 weeks Objective - Vital Signs Vital signs: Vital Signs Temp Pulse Resp 16 03/13/18 15:17 BP 166/95 03/13/18 15:17 Pulse Ox 95 03/13/18 15:17 Intake & Output 03/13/18 03/14/18 03/14/18 18:59 06:59 18:59 Weight 122.47 kg PQRS Measure Charge Sheet Measure #130: Documentation of Current Meds in Medical Chart: Patient's medications documented in chart Measure #226: Tobacco Use: Screen & Cessation Intervention: Pt not a tobacco user Measure #111: Pneumonia Vaccination: Pneumococcal vaccine NOT administered or previously given Measure #47: Advance Care Plan: Advance care planning discussed & documented, pt chose/unable to give Measure #412: Opioid Treatment Agreement: Documented signed opioid trtmnt agreemnt min once during opioid trtmnt Measure #408: Opioid Therapy Follow-up Evaluation: Patient had f/u eval minimum every 3 months during opioid therapy Measure #317: Preventitive Care & Scrn High Bld Press & F/U: Blood pressure not documented, patient not eligible Measure #128: Body Mass Index (BMI) Screening & Follow-up: BMI documented ABOVE normal parameters - f/u documented Measure #131: Pain Assessment & Follow-up: Pain positive & plan documented, Follow-up scheduled Measure #431: Unhealthy Alcohol Use Preventative Care & Scrn: Patient not identified as an unhealthy alcohol user PQRS Narrative: Smoking Status Former smoker Do You Want the Pneumonia Vaccine Up to Date Vaccine AT THIS TIME? Narcotic Agreement Date Signed 06/02/16 Blood Pressure 166/95 Pain Intensity [Right Knee] 10 Scale Used Numeric (1 - 10) Hx Alcohol Use (MH) No Home Medications: Ambulatory Orders Butalb/APAP/Caff 50-325-40Mg [Fioricet 50-325-40] 1 tab PO Q4HR PRN 06/02/16 Famotidine 20 mg PO BID PRN 06/02/16 SUMAtriptan SUCCINATE [Imitrex] 25 mg PO DAILY PRN 06/02/16 predniSONE 5 mg PO DAILY PRN 06/02/16 Albuterol Inhaler [Ventolin Hfa Inhaler] 2 puff INHALATION Q4-6H PRN 06/30/16 Budesonide [Pulmicort Flexhaler] 2 puff INHALATION BID 06/30/16 Ergocalciferol (Vitamin D2) [Vitamin D2] 50,000 unit PO FR 06/30/16 Folic Acid 1 mg PO DAILY 06/30/16 Ketoconazole 2% Shampoo [Nizoral] 1 applic TOPICAL DIRECTED PRN 06/30/16 diphenhydrAMINE [Benadryl] 25 mg PO HS PRN 06/30/16 Hydrocodone/Acetaminophen [[place] 10-325] 1 tab PO Q4H PRN 30 Days #180 tab 10/24 Diazepam [Valium] 5 mg PO BID 03/13/18 Controlled Substance Measures - Controlled Substance Measures Is patient prescribed a controlled substance at discharge?: Yes When asked, does pt state using other controlled substances?: No If prescribed controlled substance>3 days was MAPS reviewed?: Yes If Rx opioid, was Start Talking consent form obtained?: Yes If opioid is for acute pain is fill amount 7 days or less?: No Was information provided regarding opioid addiction?: Yes
== END | disposition home or self-care (01) ==
LOC: PNWHC3 14:32
PROVIDERS: ATTEND Specialist
DX: M17.0 Bilateral primary osteoarthritis of knee (principal); M16.12 Unilateral primary osteoarthritis, left hip; Z96.642 Presence of left artificial hip joint; M79.2 Neuralgia and neuritis, unspecified; Z87.891 Personal history of nicotine dependence; Z79.51 Long term (current) use of inhaled steroids; Z79.899 Other long term (current) drug therapy
CPT/HCPCS: 99211

== ENCOUNTER → 2018-05-08 | Outpatient (CLI) | payer OTHER ==
[2018-05-08 11:48] VITALS: BP 175/76; PULSE 77; RESP 18
--- NOTE | 2018-05-08 12:38 | P.PN ---
Subjective Progress Note Date: 05/08/18 This is a 62 years old male with a history of chronic right knee pain diagnosed with osteoarthritis of the right knee and right genicular nerve neuralgia, and he had the left hip osteoarthritis, and he continued to have severe left hip pain after left hip replacement , we have done diagnostic genicular block 2 patient reported he had no benefit after the genicular nerve block, and he is currently on [place] 10/325 every 4 hours , and Valium 5 mg every 8 hours , he denies any side effect of the medication, he denies any excessive drowsiness or sleepiness and he denies any suicidal ideation Physical Examinations : 1-Constitutiona : Cooperative , not in acute distress . 2-HEENT : nech ; supple , no Lymphadenopathy , normal thyroid size . eyes : no ptosis , no icterus, no photophobia . ENT : normal of hearing , normal oropharynx , no Thrush . 3- Respiratory : Chest clear to auscultations Bilaterally , no wheezing , no Rhonchi . 4- Cardiovascular : regular rate and rhythem , S1 , S2 , no S3 , no S4. 5- Gastrointestinal : abdomen soft no tenderness , bowel sounds positive all four quadrents , no organomegally . 6- Genitourinary : Defferred . 7- neurologic : Cranial nerve II to XII intact , no focal neurological deffecit . 8-psychatric : alert , oriented X 3 , appropriate affect , intact judgment and insight . 9-Lymphatic : no Lymphadenopathy . 10- musculoskeltal : Flexion and extension of right knee , associated to severe pain there is no sign of effusion, no erythema severe pain with the flexion and extension and lateral rotation of the left hip Assessment and plan= Chronic right knee pain secondary to stress over the right knee/right geniculate neuralgia , status post right geniculate a block 2 without any benefit chronic and current use of high-risk medication (opioids) Patient denies any side effects of the current pain medication and the current treatment/medication ML and the patient to do activity of daily living , Diagnoses, prognosis, treatment options, including but not limited to physical therapy, medication management, interventional therapies, and surgery, were discussed with the patient All the questions answered Patient signed the narcotic agreement, and he was orally counseled, not to overuse, not to abuse, not to Divert , not tp sell pain medication, and to take it as prescribed only, Patient was counseled not to drive or operate heavy equipment while using narcotic medication, and advised not to use alcohol or any Illicit drugs while using the narcotis, the patient's verbalized understanding that lack of compliance with any of the above instructions and will likely to cause discharge from the pain service, not to renew his narcotic prescriptions Medication managements= patient will be given prescription refills for 1-[place] 10/325 every 4 hours dispense 180 with 1 refil, Valium 5 mg every 8 hours dispense 90 with 1 refill Interventional pain management=none Refferal = he'll follow up with Dr. Dr. Dial regarding possible surgical interventions on his right knee Follow-up= 2 months. MAPS reviewed and it was appropriate , we will order a urine drug screen today - PQRS measures = - Patient's medications are documented in the chart. -Tobacco use is negative and counseling.Given. -Patient's has received pneumococcal vaccine. -Advanced care planning discussed, patient not eligible. -Opiate contract signed. -Pain positive and follow-up visit/procedure is scheduled. -Patient's blood pressure measured [ 175/76 ] , and documented in the record ,and patient will follow up with the primary care. -Patient's weight was measured and body mass index [39.1 ] above the, within the normal limits and counseling was done. and patient instructed to follow-up with the primary care physician. -Patient was not identified as an unhealthy alcohol user , Objective - Vital Signs Vital signs: Vital Signs Temp Pulse 77 05/08/18 11:38 Resp 18 05/08/18 11:38 BP 175/76 05/08/18 11:38 Pulse Ox Intake & Output 05/07/18 05/08/18 05/08/18 18:59 06:59 18:59 Weight 127.006 kg
== END ==
LOC: PNWHC3 11:15
PROVIDERS: ATTEND Specialist
DX: G89.29 Other chronic pain (principal); G58.8 Other specified mononeuropathies; Z98.890 Other specified postprocedural states; Z79.891 Long term (current) use of opiate analgesic; Z79.899 Other long term (current) drug therapy
CPT/HCPCS: 80307; G0482; G0463; 99211

== ENCOUNTER → 2018-07-03 | Outpatient (CLI) | payer OTHER ==
[2018-07-03 12:43] VITALS: BP 156/83; PULSE 77; RESP 16
--- NOTE | 2018-07-03 13:21 | P.PN ---
Subjective Progress Note Date: 07/03/18 This is a 62 years old male with a history of chronic right knee pain diagnosed with osteoarthritis of the right knee and right genicular nerve neuralgia, and he had the left hip osteoarthritis, and he continued to have severe left hip pain after left hip replacement , we have done diagnostic genicular block 2 patient reported he had no benefit after the genicular nerve block, and he is currently on [place] 10/325 every 4 hours , and Valium 5 mg every 8 hours , he denies any side effect of the medication, he denies any excessive drowsiness or sleepiness and he denies any suicidal ideation, patient had difficulty sleeping at night and he had sleep deprivation and he takes belladonna medication over- the-counter, and also he tried multiple medication to help him sleep the only medication that helped him is the combination between the Valium and the belladonna, patient reported that he stay a few days without any sleep Physical Examinations : 1-Constitutiona : Cooperative , not in acute distress . 2-HEENT : nech ; supple , no Lymphadenopathy , normal thyroid size . eyes : no ptosis , no icterus, no photophobia . 3- neurologic : Cranial nerve II to XII intact , no focal neurological deffecit . 4-psychatric : alert , oriented X 3 , appropriate affect , intact judgment and insight . 5-Lymphatic : no Lymphadenopathy . 6- musculoskeltal : Flexion and extension of right knee , associated to severe pain there is no sign of effusion, no erythema severe pain with the flexion and extension and lateral rotation of the left hip Assessment and plan= Chronic right knee pain secondary to stress over the right knee/right geniculate neuralgia , status post right geniculate a block 2 without any benefit Patient recently saw Dr. Camden romero for evaluation for possible surgical intervention on the right knee Insomnia= patient reported that he always had difficulty sleeping at night he stayed for a few days without any sleep chronic and current use of high-risk medication (opioids) Patient denies any side effects of the current pain medication and the current treatment/medication ML and the patient to do activity of daily living , Diagnoses, prognosis, treatment options, including but not limited to physical therapy, medication management, interventional therapies, and surgery, were discussed with the patient All the questions answered Patient signed the narcotic agreement, and he was orally counseled, not to overuse, not to abuse, not to Divert , not tp sell pain medication, and to take it as prescribed only, Patient was counseled not to drive or operate heavy equipment while using narcotic medication, and advised not to use alcohol or any Illicit drugs while using the narcotis, the patient's verbalized understanding that lack of compliance with any of the above instructions and will likely to cause discharge from the pain service, not to renew his narcotic prescriptions Medication managements= patient will be given prescription refills for 1-[place] 10/325 every 4 hours dispense 180 with 1 refil, Valium 5 mg every 8 hours dispense 90 with 1 refill Interventional pain management=none Referral= referred to for evaluation regarding sleep deprivation/ sleep study Follow-up= 2 months. - PQRS measures = - Patient's medications are documented in the chart. -Tobacco use is negative and counseling.Given. -Patient's has received pneumococcal vaccine. -Advanced care planning discussed, patient not eligible. -Opiate contract signed. -Pain positive and follow-up visit/procedure is scheduled. -Patient's blood pressure measured [ 156/83 ] , and documented in the record ,and patient will follow up with the primary care. -Patient's weight was measured and body mass index [38.9 ] above the, within the normal limits and counseling was done. and patient instructed to follow-up with the primary care physician. -Patient was not identified as an unhealthy alcohol user Objective - Vital Signs Vital signs: Vital Signs Temp Pulse 77 07/03/18 12:31 Resp 16 07/03/18 12:31 BP 156/83 07/03/18 12:31 Pulse Ox 93 L 07/03/18 12:31 Intake & Output 07/02/18 07/03/18 07/03/18 18:59 06:59 18:59 Weight 126.552 kg
== END | disposition home or self-care (01) ==
LOC: PNWHC3 12:11
PROVIDERS: ATTEND Specialist
DX: G89.29 Other chronic pain (principal); M25.561 Pain in right knee; G58.8 Other specified mononeuropathies; Z98.890 Other specified postprocedural states; Z79.891 Long term (current) use of opiate analgesic; Z79.899 Other long term (current) drug therapy
CPT/HCPCS: 99211

== ENCOUNTER → 2018-08-28 | Outpatient (CLI) | payer MEDICARE, OTHER ==
[2018-08-28 14:38] VITALS: BP 148/86; PULSE 76; RESP 16
--- NOTE | 2018-08-28 20:43 | P.PN ---
Subjective Progress Note Date: 08/28/18 This is a 62 years old male with a history of chronic right knee pain diagnosed with osteoarthritis of the right knee and right genicular nerve neuralgia, and he had the left hip osteoarthritis, and he continued to have severe left hip pain after left hip replacement , we have done diagnostic genicular block 2 patient reported he had no benefit after the genicular nerve block, and he is currently on [place] 10/325 every 4 hours , and Valium 5 mg every 8 hours , he denies any side effect of the medication, he denies any excessive drowsiness or sleepiness and he denies any suicidal ideation, patient had difficulty sleeping at night and he had sleep deprivation and he takes belladonna medication ov [id number], and also he tried multiple medication to help him sleep the only medication that helped him is the combination between the Valium and the belladonna, patient reported that he stay a few days without any sleep Physical Examinations : 1-Constitutiona : Cooperative , not in acute distress . 2-HEENT : nech ; supple , no Lymphadenopathy , normal thyroid size . eyes : no ptosis , no icterus, no photophobia . 3- neurologic : Cranial nerve II to XII intact , no focal neurological deffecit . 4-psychatric : alert , oriented X 3 , appropriate affect , intact judgment and insight . 5-Lymphatic : no Lymphadenopathy . 6- musculoskeltal : Flexion and extension of right knee , associated to severe pain there is no sign of effusion, no erythema severe pain with the flexion and extension and lateral rotation of the left hip Assessment and plan= Chronic right knee pain secondary to stress over the right knee/right geniculate neuralgia , status post right geniculate a block 2 without any bene fit Patient recently saw Dr. Camden hartmann for evaluation for possible surgical intervention on the right knee Insomnia= patient reported that he always had difficulty sleeping at night he stayed for a few days without any sleep chronic and current use of high-risk medication (opioids) Patient denies any side effects of the current pain medication and the current treatment/medication ML and the patient to do activity of daily living , Diagnoses, prognosis, treatment options, including but not limited to physical therapy, medication management, interventional therapies, and surgery, were discussed with the patient All the questions answered Patient signed the narcotic agreement, and he was orally counseled, not to overuse, not to abuse, not to Divert , not tp sell pain medication, and to take it as prescribed only, Patient was counseled not to drive or operate heavy equipment while using narcotic medication, and advised not to use alcohol or any Illicit drugs while using the narcotis, the patient's verbalized understanding that lack of compliance with any of the above instructions and will likely to cause discharge from the pain service, not to renew his narcotic prescriptions Medication managements= patient will be given prescription refills for 1-[place] 10/325 every 4 hours dispense 180 with 1 refil, Valium 5 mg every 8 hours dispense 90 with 1 refill MAPS reviewed and it was okay Interventional pain management=none Referral= referred to for evaluation regarding sleep deprivation/sleep study patient reported that he did not see Dr Díaz yet because of insurance issues Follow-up= 2 months. - PQRS measures = - Patient's medications are documented in the chart. -Tobacco use is negative and counseling.Given. -Patient's has received pneumococcal vaccine. -Advanced care planning discussed, patient not eligible. -Opiate contract signed. -Pain positive and follow-up visit/procedure is scheduled. -Patient's blood pressure measured [ 148/86 ] , and documented in the record ,and patient will follow up with the primary care. -Patient's weight was measured and body mass index [36.9 ] above the,within the normal limits and counseling was done. and patient instructed to follow-up with the primary care physician. -Patient was not identified as an unhealthy alcohol user Objective - Vital Signs Vital signs: Vital Signs Temp Pulse 76 08/28/18 14:24 Resp 16 08/28/18 14:24 BP 148/86 08/28/18 14:24 Pulse Ox 95 08/28/18 14:24 Intake & Output 08/28/18 08/28/18 08/29/18 06:59 18:59 06:59 Weight 123.377 kg
== END | disposition home or self-care (01) ==
LOC: PNWHC3 14:06
PROVIDERS: ATTEND Specialist
DX: G89.29 Other chronic pain (principal); M17.11 Unilateral primary osteoarthritis, right knee; M79.2 Neuralgia and neuritis, unspecified; M16.12 Unilateral primary osteoarthritis, left hip; Z79.899 Other long term (current) drug therapy; F11.90 Opioid use, unspecified, uncomplicated; G47.00 Insomnia, unspecified; Z98.890 Other specified postprocedural states; Z96.642 Presence of left artificial hip joint
CPT/HCPCS: 99211

== ENCOUNTER → 2018-10-23 | Outpatient (CLI) | payer MEDICARE, OTHER ==
--- NOTE | 2018-10-23 14:44 | P.PAINPG ---
Subjective Progress Note Date: 10/23/18 Saad presents today for follow-up secondary to his chronic pain. He has a chronic history of knee pain. He's been on chronic opioid therapy as well as benzodiazepine therapy for long period of time. He denies any side effects from the medications. He denies any excessive sedation. If she has difficulty falling asleep at night. We referred him to see a rental management trainee for sleep disorder on his last visit she has not seen. At this point he has been using [place] 10 mg every 4 hours as needed for pain. He has been using Valium 5 mg 3 times a day for many years as well and reports that the volume was started secondary tinnitus in his years. He reports pain in his right knee along with chronic right lower extremity cellulitis. He had left hip replaced few months ago and reports that he continues to have pain is gone in for follow-up. Objective - Vital Signs Vital signs: Intake & Output 10/22/18 10/23/18 10/23/18 18:59 06:59 18:59 Weight 123.377 kg - Exam General: Awake and alert oriented 3 no distress, obese Respiratory exam: No audible wheezing no accessory muscle usage Cardiovascular exam: regular rate, palpable bilateral pulses, right lower extremity edema Abdominal exam: No distention nontender to palpation, obese Cervical spine: Normal alignment, Roof Technician strength is 5/5 Lumbar spine: Loss of lumbar lordosis, normal alignment, tender to palpation over bilateral paraspinal muscles, facet loading is positive bilaterally. Straight leg raise is negative. Limited range of motion due to pain with flexion, extension and side bending. Right knee: Tender to palpation. There is pain with extension and flexion of the right knee. Drawer sign is negative. Grind test positive. Neuro exam: Normal sensation in bilateral upper extremities, deep tendon reflexes are 2+ bilateral upper extremities. Normal sensation in bilateral lower extremities. Unable to test reflexes right lower extremity secondary to pain in the knee Psych exam: Cooperative, appropriate mood Assessment and Plan Assessment: #1 knee osteoarthritis #2 hip osteoarthritis #3 chronic opioid dependence Plan: Had a discussion with the patient I would refill his medications on today's visit. I advised him in the future I will no longer continue to write him for diazepam along with Marion's. I also told him that if he is getting diazepam from any other prescriber I will no longer be able to prescribe him opioids as it increased risk of respiratory depression. I will refill them over the next 2 months. I have advised him to follow up with psychiatrist to evaluate and find a different medication and Valium. He reports that his volume was initially started for tenderness in his years. I advised him that on on clear as to this being indication for that and he should see his ENT doctor again and see if that is an appropriate medication to be on along with Marion. PQRS Measure Charge Sheet Measure #130: Documentation of Current Meds in Medical Chart: Patient's medications documented in chart Measure #226: Tobacco Use: Screen & Cessation Intervention: Pt screened for tobacco use AND intervention given Measure #111: Pneumonia Vaccination: Pneumococcal vaccine administered or previously received Measure #47: Advance Care Plan: Advance care planning discussed & documented, plan or surrogate given Measure #412: Opioid Treatment Agreement: Documented signed opioid trtmnt agreemnt min once during opioid trtmnt Measure #317: Preventitive Care & Scrn High Bld Press & F/U: Normal blood pressure, f/u not required Measure #128: Body Mass Index (BMI) Screening & Follow-up: BMI documented ABOVE normal parameters - f/u documented Measure #131: Pain Assessment & Follow-up: Pain positive & plan documented, Follow-up scheduled Measure #431: Unhealthy Alcohol Use Preventative Care & Scrn: Patient not identified as an unhealthy alcohol user PQRS Narrative: Smoking Status Former smoker Narcotic Agreement Date Signed 06/02/16 Hx Alcohol Use (MH) No Home Medications: Ambulatory Orders Butalb/APAP/Caff 50-325-40Mg [Fioricet 50-325-40] 1 tab PO Q4HR PRN 06/02/16 Famotidine 20 mg PO BID PRN 06/02/16 SUMAtriptan SUCCINATE [Imitrex] 25 mg PO DAILY PRN 06/02/16 predniSONE 5 mg PO DAILY PRN 06/02/16 Albuterol Inhaler [Ventolin Hfa Inhaler] 2 puff INHALATION Q4-6H PRN 06/30/16 Budesonide [Pulmicort Flexhaler] 2 puff INHALATION BID 06/30/16 Ergocalciferol (Vitamin D2) [Vitamin D2] 50,000 unit PO FR 06/30/16 Folic Acid 1 mg PO DAILY 06/30/16 Ketoconazole 2% Shampoo [Nizoral] 1 applic TOPICAL DIRECTED PRN 06/30/16 diphenhydrAMINE [Benadryl] 25 mg PO HS PRN 06/30/16 Belladonna-Opium 16.2-60 mg [B&O Suppository] 0.5 mg pe PO HS 05/08/18 Loratadine [Claritin] 10 mg PO DAILY PRN 05/08/18 Diazepam [Valium] 5 mg PO TID #90 tab 07/03/18 HYDROcodone/APAP 10-325MG [[place] 10-325] 1 tab PO Q4HR PRN 30 Days #180 tab 07/03/18 Hydrocodone/Acetaminophen [[place] 10-325] 1 tab PO Q4H PRN 30 Days #180 tab 07/03/18 Melatonin 20 mg PO DAILY 08/28/18 Valerian Root 2 tab PO DAILY 08/28/18 Controlled Substance Measures - Controlled Substance Measures Is patient prescribed a controlled substance at discharge?: Yes When asked, does pt state using other controlled substances?: Yes If prescribed controlled substance>3 days was MAPS reviewed?: Yes If Rx opioid, was Start Talking consent form obtained?: Yes If opioid is for acute pain is fill amount 7 days or less?: No Was information provided regarding opioid addiction?: Yes
== END ==
LOC: PNWHC3 14:13
PROVIDERS: ATTEND Hospitalist
DX: M17.10 Unilateral primary osteoarthritis, unspecified knee (principal); M16.10 Unilateral primary osteoarthritis, unspecified hip; F11.20 Opioid dependence, uncomplicated; Z87.891 Personal history of nicotine dependence; Z79.899 Other long term (current) drug therapy; Z79.891 Long term (current) use of opiate analgesic
CPT/HCPCS: 80307; G0482; G0463; 99211

== ENCOUNTER → 2019-01-10 | Outpatient (CLI) | payer MEDICARE, OTHER ==
[2019-01-10 10:31] VITALS: BP 153/73; PULSE 74; RESP 20
--- NOTE | 2019-01-14 07:54 | P.PAINPG ---
Subjective Progress Note Date: 01/10/19 Saad presents today for follow-up secondary to his chronic pain. He has a chronic history of knee pain. He's been on chronic opioid therapy as well as benzodiazepine therapy for long period of time. He denies any side effects from the medications. He denies any excessive sedation. he has difficulty falling asleep at night. We referred him to see a land[employer] gas plant field technician for sleep disorder on his last visit , and he reported that he was evaluated by the sleep medicine doctor but we don't have any official report, also patient reported that he has tinnitus, and he is on Valium to help his tinnitus. At this point he has been using [place] 10 mg every 4 hours as needed for pain. He has been using Valium 5 mg 3 times a day for many years as well and reports that the volume was started secondary tinnitus in his years. He reports pain in his right knee along with chronic right lower extremity cellulitis. He had left hip replaced few months ago and reports that he continues to have pain, and he is here for follow-up, and medication refill Physical exam General: Awake and alert oriented 3 no distress, obese Respiratory exam: No audible wheezing no accessory muscle usage Cardiovascular exam: regular rate, palpable bilateral pulses, right lower extr emity edema Abdominal exam: No distention nontender to palpation, obese Cervical spine: Normal alignment, Director Vaccine strength is 5/5 Lumbar spine: Loss of lumbar lordosis, normal alignment, tender to palpation over bilateral paraspinal muscles, facet loading is positive bilaterally. Straight leg raise is negative. Limited range of motion due to pain with flexion, extension and side bending. Right knee: Tender to palpation. There is pain with extension and flexion of the right knee. Drawer sign is negative. Grind test positive. Neuro exam: Normal sensation in bilateral upper extremities, deep tendon reflexes are 2+ bilateral upper extremities. Normal sensation in bilateral lower extremities. Unable to test reflexes right lower extremity secondary to pain in the knee Psych exam: Cooperative, appropriate mood Assessment and Plan #1 knee osteoarthritis #2 hip osteoarthritis #3 chronic opioid dependence chronic and current use of high-risk medication (opioids) Patient denies any side effects of the current pain medication and the current treatment/medication helping the patient to do activity of daily living , Diagnoses, prognosis, treatment options, including but not limited to physical therapy, medication management, interventional therapies, and surgery, were discussed with the patient All the questions answered The narcotic consent was signed and patient agreed and understood the side effects and complications of opioid treatment. Patient signed the narcotic agreement, and was orally counseled, not to overuse, not to abuse, not to Divert , not tp sell pain medication, and to take it as prescribed only, Patient was counseled not to drive or operate heavy equipment while using narcotic medication, and advised not to use alcohol or any Illicit drugs while using the narcotis. understanding that lack of compliance with any of the above instructions, will likely to cause discharge from, the pain service, not to renew his narcotic prescriptions MAPS Reviwed and it was apropriate . Medication managements= patient will be given prescription refills for [place] 10/325 2 tablets every 8 hours when necessary for pain dispense 180 with 1 refill, Valium 5 mg every 8 hours 3 times a day dispense 90 with 1 refill , Objective - Vital Signs Vital signs: Vital Signs Temp Pulse 74 01/10/19 10:25 Resp 20 01/10/19 10:25 BP 153/73 01/10/19 10:25 Pulse Ox 97 01/10/19 10:25 Intake & Output 01/10/19 01/11/19 01/11/19 18:59 06:59 18:59 Weight 129.274 kg PQRS Measure Charge Sheet Measure #130: Documentation of Current Meds in Medical Chart: Patient's medications documented in chart Measure #226: Tobacco Use: Screen & Cessation Intervention: Pt not a tobacco user Measure #111: Pneumonia Vaccination: Pneumococcal vaccine administered or previously received Measure #47: Advance Care Plan: Advance care planning discussed & documented, pt chose/unable to give Measure #412: Opioid Treatment Agreement: Documented signed opioid trtmnt agreemnt min once during opioid trtmnt Measure #408: Opioid Therapy Follow-up Evaluation: Patient had f/u eval minimum every 3 months during opioid therapy Measure #317: Preventitive Care & Scrn High Bld Press & F/U: Pre-hypertensive or hypertensive BP documented, pt will f/u with PCP Measure #128: Body Mass Index (BMI) Screening & Follow-up: BMI documented ABOVE normal parameters - f/u documented Measure #131: Pain Assessment & Follow-up: Pain positive & plan documented, Follow-up scheduled Measure #431: Unhealthy Alcohol Use Preventative Care & Scrn: Patient not identified as an unhealthy alcohol user PQRS Narrative: Smoking Status Former smoker Narcotic Agreement Date Signed 06/02/16 Blood Pressure 153/73 Pain Intensity [Right Knee] 10 Scale Used Numeric (1 - 10) Hx Alcohol Use (MH) No Home Medications: Ambulatory Orders Butalb/APAP/Caff 50-325-40Mg [Fioricet 50-325-40] 1 tab PO Q4HR PRN 06/02/16 Famotidine 20 mg PO BID PRN 06/02/16 SUMAtriptan SUCCINATE [Imitrex] 25 mg PO DAILY PRN 06/02/16 predniSONE 5 mg PO DAILY PRN 06/02/16 Albuterol Inhaler [Ventolin Hfa Inhaler] 2 puff INHALATION Q4-6H PRN 06/30/16 Budesonide [Pulmicort Flexhaler] 2 puff INHALATION BID 06/30/16 Ergocalciferol (Vitamin D2) [Vitamin D2] 50,000 unit PO FR 06/30/16 Folic Acid 1 mg PO DAILY 06/30/16 Ketoconazole 2% Shampoo [Nizoral] 1 applic TOPICAL DIRECTED PRN 06/30/16 diphenhydrAMINE [Benadryl] 25 mg PO HS PRN 06/30/16 Belladonna-Opium 16.2-60 mg [B&O Suppository] 0.5 mg pe PO HS 05/08/18 Loratadine [Claritin] 10 mg PO DAILY PRN 05/08/18 Diazepam [Valium] 5 mg PO TID #90 tab 07/03/18 HYDROcodone/APAP 10-325MG [[place] 10-325] 1 tab PO Q4HR PRN 30 Days #180 tab 07/03/18 Hydrocodone/Acetaminophen [[place] 10-325] 1 tab PO Q4H PRN 30 Days #180 tab 07/03/18 Melatonin 20 mg PO DAILY 08/28/18 [place] 2 tab PO DAILY 08/28/18 Controlled Substance Measures - Controlled Substance Measures Is patient prescribed a controlled substance at discharge?: Yes When asked, does pt state using other controlled substances?: No If prescribed controlled substance>3 days was MAPS reviewed?: Yes If Rx opioid, was Start Talking consent form obtained?: Yes If opioid is for acute pain is fill amount 7 days or less?: No Was information provided regarding opioid addiction?: Yes
== END ==
LOC: PNWHC3 10:12
PROVIDERS: ATTEND Specialist
DX: M17.10 Unilateral primary osteoarthritis, unspecified knee (principal); M16.10 Unilateral primary osteoarthritis, unspecified hip; F11.20 Opioid dependence, uncomplicated; Z87.891 Personal history of nicotine dependence; Z79.899 Other long term (current) drug therapy
CPT/HCPCS: 99211

== ENCOUNTER → 2019-03-07 | Outpatient (CLI) | payer MEDICARE, OTHER ==
[2019-03-07 10:35] VITALS: BP 157/87; PULSE 83; RESP 20
--- NOTE | 2019-03-07 11:07 | P.PAINPG ---
Subjective Progress Note Date: 03/07/19 Saad presents today for follow-up secondary to his chronic pain. He has a chronic history of knee pain. He's been on chronic opioid therapy as well as benzodiazepine therapy for long period of time. He denies any side effects from the medications. He denies any excessive sedation. he has difficulty falling asleep at night. We referred him to see a product development worker for sleep disorder , and he reported that he was evaluated by the sleep medicine doctor but we don't have any official report, also patient reported that he has tinnitus, and he is on Valium 5 mg TID ,to help his tinnitus. At this point he has been using [place] 10 mg every 4 hours as needed for pain. He has been using Valium 5 mg 3 times a day for many years, as well and reports that the volume was started secondary tinnitus , He reports pain in his right knee along with chronic right lower extremity cellulitis. He had left hip replaced few months ago and reports that he continues to have pain, and he is here for follow-up, and medication refill Objective - Vital Signs Vital signs: Vital Signs Temp Pulse 83 03/07/19 10:25 Resp 20 03/07/19 10:25 BP 157/87 03/07/19 10:25 Pulse Ox 97 03/07/19 10:25 - Exam Physical Examinations : 1-Constitutiona : Cooperative , not in acute distress . 2-HEENT : nech ; supple , no Lymphadenopathy , normal thyroid size . eyes : no ptosis , no icterus, no photophobia . 3- neurologic : Cranial nerve II to XII intact , no focal neurological deffecit . 4-psychatric : alert , oriented X 3 , appropriate affect , intact judgment and insight . 5-Lymphatic : no Lymphadenopathy . 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 Patient was referred previously to orthopedic surgeon for evaluation Insomnia= patient reported that he always had difficulty sleeping at night he stayed for a few days without any sleep chronic and current use of high-risk medication (opioids) and chronic use of Valium Patient denies any side effects of the current pain medication and the current treatment/medication and able the patient to do activity of daily living , Diagnoses, prognosis, treatment options, including but not limited to physical therapy, medication management, interventional therapies, and surgery, were discussed with the patient All the questions answered Patient signed the narcotic agreement, and he was orally counseled, not to overuse, not to abuse, not to Divert , not tp sell pain medication, and to take it as prescribed only, Patient was counseled not to drive or operate heavy equipment while using narcotic medication, and advised not to use alcohol or any Illicit drugs while using the narcotis, the patient's verbalized understanding that lack of compliance with any of the above instructions and will likely to cause discharge from the pain service, not to renew his narcotic prescriptions Medication managements= patient will be given prescription refills for 1-[place] 10/325 every 4 hours dispense 180 with 1 refil, I wouldn't decrease the volume Valium 5 mg every 12 hours dispense 60 And a second prescription for Valium will be 5 mg daily dispense 30 , and after that we will discontinue the Valium MAPS reviewed and it was okay Interventional =none Referral= advised patient to see ENT physician regarding his chronic tinnitus Follow-up= 2 months. Time with Patient: Less than 30 PQRS Measure Charge Sheet Measure #130: Documentation of Current Meds in Medical Chart: Patient's medications documented in chart Measure #226: Tobacco Use: Screen & Cessation Intervention: Pt not a tobacco user Measure #111: Pneumonia Vaccination: Pneumococcal vaccine administered or previously received Measure #47: Advance Care Plan: Advance care planning discussed & documented, pt chose/unable to give Measure #412: Opioid Treatment Agreement: Documented signed opioid trtmnt agreemnt min once during opioid trtmnt Measure #408: Opioid Therapy Follow-up Evaluation: Patient had f/u eval minimum every 3 months during opioid therapy Measure #317: Preventitive Care & Scrn High Bld Press & F/U: Pre-hypertensive or hypertensive BP documented, pt will f/u with PCP Measure #128: Body Mass Index (BMI) Screening & Follow-up: BMI documented ABOVE normal parameters - f/u documented Measure #131: Pain Assessment & Follow-up: Pain positive & plan documented, Follow-up scheduled Measure #431: Unhealthy Alcohol Use Preventative Care & Scrn: Patient not identified as an unhealthy alcohol user PQRS Narrative: Smoking Status Former smoker Narcotic Agreement Date Signed 06/02/16 Blood Pressure 157/87 Pain Intensity [Generalized] 10 Scale Used Numeric (1 - 10) Hx Alcohol Use (MH) No Home Medications: Ambulatory Orders Butalb/APAP/Caff 50-325-40Mg [Fioricet 50-325-40] 1 tab PO Q4HR PRN 06/02/16 Famotidine 20 mg PO BID PRN 06/02/16 SUMAtriptan SUCCINATE [Imitrex] 25 mg PO DAILY PRN 06/02/16 predniSONE 5 mg PO DAILY PRN 06/02/16 Albuterol Inhaler [Ventolin Hfa Inhaler] 2 puff INHALATION Q4-6H PRN 06/30/16 Budesonide [Pulmicort Flexhaler] 2 puff INHALATION BID 06/30/16 Ergocalciferol (Vitamin D2) [Vitamin D2] 50,000 unit PO FR 06/30/16 Ketoconazole 2% Shampoo [Nizoral] 1 applic TOPICAL DIRECTED PRN 06/30/16 diphenhydrAMINE [Benadryl] 25 mg PO HS PRN 06/30/16 Loratadine [Claritin] 10 mg PO DAILY PRN 05/08/18 Diazepam [Valium] 5 mg PO TID #90 tab 07/03/18 HYDROcodone/APAP 10-325MG [[place] 10-325] 1 tab PO Q4HR PRN 30 Days #180 tab 07/03/18 Hydrocodone/Acetaminophen [[place] 10-325] 1 tab PO Q4H PRN 30 Days #180 tab 07/03/18 Melatonin 20 mg PO DAILY 08/28/18 Controlled Substance Measures - Controlled Substance Measures Is patient prescribed a controlled substance at discharge?: Yes When asked, does pt state using other controlled substances?: No If prescribed controlled substance>3 days was MAPS reviewed?: Yes If Rx opioid, was Start Talking consent form obtained?: Yes If opioid is for acute pain is fill amount 7 days or less?: No Was information provided regarding opioid addiction?: Yes
== END | disposition home or self-care (01) ==
LOC: PNWHC3 09:53
PROVIDERS: ATTEND Specialist
DX: G89.29 Other chronic pain (principal); M25.561 Pain in right knee; Z98.890 Other specified postprocedural states; Z87.891 Personal history of nicotine dependence; Z79.52 Long term (current) use of systemic steroids; Z79.51 Long term (current) use of inhaled steroids; Z79.891 Long term (current) use of opiate analgesic; Z79.899 Other long term (current) drug therapy
CPT/HCPCS: 99211

== ENCOUNTER → 2019-05-02 | Outpatient (CLI) | payer MEDICARE, OTHER ==
[2019-05-02 13:55] VITALS: BP 157/90; PULSE 68; RESP 16
--- NOTE | 2019-05-06 11:12 | P.PAINPG ---
Subjective Progress Note Date: 05/02/19 Saad presents today for follow-up secondary to his chronic pain. He has a chronic history of knee pain. He's been on chronic opioid therapy as well as benzodiazepine therapy for long period of time. He denies any side effects from the medications. He denies any excessive sedation. At his last visit, his Valium was weaned to 5 mg daily with the plan of stopping Valium altogether. he also uses [place] 10 mg every 4 hours as needed for pain. he reports that he had a "seizure reaction" on April 21, that he attributes to dose reduction of Valium. this reaction involved shaking of his body, his right leg giving out resulting in hitting of his right knee. He reports that he did some online research and took 40 mg of Valium by mouth to treat this . of note, he did not seek medical attention, and does not report any further reactions. He did report hurting his right leg and his leg is currently wrapped in an Dayo bandage. he also reports left hip pain and low back pain. Of note,he does have chronic right lower extremity cellulitis. his primary care physician has recommended that he see psychiatry, however he has not yet scheduled this. He is here for follow-up, and medication refill. Review of systems is negative for chest pain, shortness of breath, new onset weakness, numbness/tingling, abdominal pain, malaise, fever, night sweats, chills, homicidal or suicidal ideation, or bowel or bladder incontinence. Objective Physical exam: Vitals: Reviewed in EMR GENERAL: Well appearing, in no acute distress PSYCH: Mood and affect is appropriate. Awake, alert, and oriented SKIN: Skin color, texture, turgor normal, no rashes or lesions HEENT: Normocephalic, atraumatic. EOM intact CV: No pedal edema RESP: Respirations are unlabored, no audible wheezing GI: Abdomen non-distended MUSCULOSKELETAL: Bilateral upper and lower extremity strength is normal and symm etric. No atrophy or tone abnormalities are noted. right lower extremity has gross pitting pedal edema below the knee, it blanches with gentle pressure,it is red and swollen and warm to touch. 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 He was given a prescription for Valium 5 mg #15, to take every other day. No more Valium prescriptions will be provided.he was also given a prescription refill for [place] 10/325 every 4 hours dispense 180 with 1 refill MAPS reviewed and it was appropriate Interventional =none Referral= advised patient to see psychiatrist. I advised him to seek care in an urgent care center Re: Right lower extremity swelling and erythema Follow-up= 2 months. Time with Patient: Less than 30 PQRS Measure Charge Sheet Measure #130: Documentation of Current Meds in Medical Chart: Patient's medications documented in chart Measure #226: Tobacco Use: Screen & Cessation Intervention: Pt not a tobacco user Measure #111: Pneumonia Vaccination: Pneumococcal vaccine administered or previously received Measure #47: Advance Care Plan: Advance care planning discussed & documented, pt chose/unable to give Measure #412: Opioid Treatment Agreement: Documented signed opioid trtmnt agreemnt min once during opioid trtmnt Measure #408: Opioid Therapy Follow-up Evaluation: Patient had f/u eval minimum every 3 months during opioid therapy Measure #317: Preventitive Care & Scrn High Bld Press & F/U: Pre-hypertensive or hypertensive BP documented, pt will f/u with PCP Measure #128: Body Mass Index (BMI) Screening & Follow-up: BMI documented ABOVE normal parameters - f/u documented Measure #131: Pain Assessment & Follow-up: Pain positive & plan documented, Follow-up scheduled Measure #431: Unhealthy Alcohol Use Preventative Care & Scrn: Patient not identified as an unhealthy alcohol user Objective - Vital Signs Vital signs: Vital Signs Temp Pulse 68 05/02/19 13:43 Resp 16 05/02/19 13:43 BP 157/90 05/02/19 13:43 Pulse Ox 97 05/02/19 13:43 PQRS Measure Charge Sheet PQRS Narrative: Smoking Status Former smoker Narcotic Agreement Date Signed 06/02/16 Blood Pressure 157/90 Pain Intensity [Right Leg] 10 Pain Intensity [Left Hip] 9 Pain Intensity [Lower Back] 8 Scale Used Numeric (1 - 10) Hx Alcohol Use (MH) No Home Medications: Ambulatory Orders Butalb/APAP/Caff 50-325-40Mg [Fioricet 50-325-40] 1 tab PO Q4HR PRN 06/02/16 Famotidine 20 mg PO BID PRN 06/02/16 SUMAtriptan SUCCINATE [Imitrex] 25 mg PO DAILY PRN 06/02/16 predniSONE 5 mg PO DAILY PRN 06/02/16 Albuterol Inhaler [Ventolin Hfa Inhaler] 2 puff INHALATION Q4-6H PRN 06/30/16 Budesonide [Pulmicort Flexhaler] 2 puff INHALATION BID 06/30/16 Ergocalciferol (Vitamin D2) [Vitamin D2] 50,000 unit PO FR 06/30/16 Ketoconazole 2% Shampoo [Nizoral] 1 applic TOPICAL DIRECTED PRN 06/30/16 diphenhydrAMINE [Benadryl] 25 mg PO HS PRN 06/30/16 Loratadine [Claritin] 10 mg PO DAILY PRN 05/08/18 Hydrocodone/Acetaminophen [[place] 10-325] 1 tab PO Q4H PRN 30 Days #180 tab 07/03/18 Melatonin 20 mg PO HS 08/28/18 Diazepam [Valium] 5 mg PO DAILY 03/07/19 Cbd Gummies 1 dose PO HS 04/30/19 Umeclidinium [place] [Incruse Ellipta] 1 puff INHALATION DAILY 04/30/19 Zolpidem [Ambien] 1 tab PO DAILY 05/02/19 Controlled Substance Measures - Controlled Substance Measures Is patient prescribed a controlled substance at discharge?: Yes When asked, does pt state using other controlled substances?: No If prescribed controlled substance>3 days was MAPS reviewed?: Yes If Rx opioid, was Start Talking consent form obtained?: Yes If opioid is for acute pain is fill amount 7 days or less?: No Was information provided regarding opioid addiction?: Yes
== END | disposition home or self-care (01) ==
LOC: PNWHC3 12:55
PROVIDERS: ATTEND Anesthesiology
DX: G89.29 Other chronic pain (principal); M25.561 Pain in right knee; G58.8 Other specified mononeuropathies; Z79.891 Long term (current) use of opiate analgesic; Z79.899 Other long term (current) drug therapy; Z87.891 Personal history of nicotine dependence
CPT/HCPCS: 99211

== ENCOUNTER → 2019-06-27 | Outpatient (CLI) | payer MEDICARE, OTHER ==
[2019-06-27 13:56] VITALS: BP 166/81; PULSE 70; RESP 16
--- NOTE | 2019-07-01 11:21 | P.PAINPG ---
Subjective Progress Note Date: 06/27/19 Saad presents today for follow-up secondary to his chronic pain. He has a chronic history of knee pain. He's been on chronic opioid therapy as well as benzodiazepine therapy for long period of time. He denies any side effects from the medications. He denies any excessive sedation. At his last visit, his Valium was discontinued, following a wean. he currently uses [place] 10 mg every 4 hours as needed for pain. he reports that he had a "seizure reaction" on April 21 and again approximately 3 weeks ago, that he attributes to dose reduction of Valium. this reaction involved shaking of his body, most recently he hit his left forearm against a hard object and has an abrasion from this. He reports that he reports some water and 10 old Valium bottle, shook it up and drank this. of note, he did not seek medical attention, and does not report any further reactions. His primary care physician has recommended that he see psychiatry, however he has not yet scheduled this. He is here for follow-up, and medication refill. Review of systems is negative for chest pain, shortness of breath, new onset weakness, numbness/tingling, abdominal pain, malaise, fever, night sweats, chills, homicidal or suicidal ideation, or bowel or bladder incontinence. He does report nausea, vomiting, cough for the last 2 days. Objective Physical exam: Vitals: Reviewed in EMR GENERAL: Well appearing, in no acute distress PSYCH: Mood and affect is appropriate. Awake, alert, and oriented SKIN: Skin color, texture, turgor normal, no rashes or lesions HEENT: Normocephalic, atraumatic. EOM intact CV: No pedal edema RESP: Respirations are unlabored, no audible wheezing GI: Abdomen non-distended MUSCULOSKELETAL: Bilateral lower extremity strength is normal and symmetric. No atrophy or tone abnormalities are noted. right lower extremity is wrapped in Dayo bandage, no redness noted. He does have a small abrasion on left forearm. NEUR: cranial nerves are grossly intact Assessment and Plan Plan: Assessment and plan= Chronic right knee pain secondary to stress over the right knee/right geniculate neuralgia , status post right geniculate nerve block 2 without any benefit Patient was referred previously to orthopedic surgeon for evaluation chronic and current use of high-risk medication (opioids) and chronic use of Valium, Valium has been recently discontinued. We had a lengthy discussion regarding opioid and benzodiazepine use, patient was informed that if he were to restart benzodiazepines, we would gradually his opioids. He expressed understanding Today, he was given a prescription refill for [place] 10/325 every 4 hours dispense 180 with 1 refill MAPS reviewed and it was appropriate Narcotic agreement renewed today Interventional =none Referral= none today Follow-up= 2 months. PQRS Measure Charge Sheet Measure #130: Documentation of Current Meds in Medical Chart: Patient's medications documented in chart Measure #226: Tobacco Use: Screen & Cessation Intervention: Pt not a tobacco user Measure #111: Pneumonia Vaccination: Pneumococcal vaccine administered or previously received Measure #47: Advance Care Plan: Advance care planning discussed & documented, pt chose/unable to give Measure #412: Opioid Treatment Agreement: Documented signed opioid trtmnt agreemnt min once during opioid trtmnt Measure #408: Opioid Therapy Follow-up Evaluation: Patient had f/u eval minimum every 3 months during opioid therapy Measure #317: Preventitive Care & Scrn High Bld Press & F/U: Pre-hypertensive or hypertensive BP documented, pt will f/u with PCP Measure #128: Body Mass Index (BMI) Screening & Follow-up: BMI documented ABOVE normal parameters - f/u documented Measure #131: Pain Assessment & Follow-up: Pain positive & plan documented, Follow-up scheduled Measure #431: Unhealthy Alcohol Use Preventative Care & Scrn: Patient not identified as an unhealthy alcohol user PQRS Measure Charge Sheet PQRS Narrative: Smoking Status Former smoker Narcotic Agreement Date Signed 06/02/16 Hx Alcohol Use (MH) No Home Medications: Ambulatory Orders Butalb/APAP/Caff 50-325-40Mg [Fioricet 50-325-40] 1 tab PO Q4HR PRN 06/02/16 Famotidine 20 mg PO BID PRN 06/02/16 SUMAtriptan SUCCINATE [Imitrex] 25 mg PO DAILY PRN 06/02/16 predniSONE 5 mg PO DAILY PRN 06/02/16 Albuterol Inhaler [Ventolin Hfa Inhaler] 2 puff INHALATION Q4-6H PRN 06/30/16 Budesonide [Pulmicort Flexhaler] 2 puff INHALATION BID 06/30/16 Ergocalciferol (Vitamin D2) [Vitamin D2] 50,000 unit PO FR 02/09/17 Ketoconazole 2% Shampoo [Nizoral] 1 applic TOPICAL DIRECTED PRN 06/30/16 diphenhydrAMINE [Benadryl] 25 mg PO HS PRN 06/30/16 Loratadine [Claritin] 10 mg PO DAILY PRN 05/08/18 Melatonin 20 mg PO HS 08/28/18 Diazepam [Valium] 5 mg PO DAILY 03/07/19 Cbd Gummies 1 dose PO HS 04/30/19 Umeclidinium [place] [Incruse Ellipta] 1 puff INHALATION DAILY 04/30/19 Zolpidem [Ambien] 1 tab PO DAILY 05/02/19 Hydrocodone/Acetaminophen [[place] 10-325] 1 - 2 tab PO Q4H PRN 30 Days #180 tab 05/09/19 Controlled Substance Measures - Controlled Substance Measures Is patient prescribed a controlled substance at discharge?: Yes When asked, does pt state using other controlled substances?: No If prescribed controlled substance>3 days was MAPS reviewed?: Yes If Rx opioid, was Start Talking consent form obtained?: Yes If opioid is for acute pain is fill amount 7 days or less?: No Was information provided regarding opioid addiction?: Yes
== END | disposition home or self-care (01) ==
LOC: PNWHC3 12:59
PROVIDERS: ATTEND Anesthesiology
DX: G89.29 Other chronic pain (principal); M25.561 Pain in right knee; M79.2 Neuralgia and neuritis, unspecified; Z87.891 Personal history of nicotine dependence; Z98.890 Other specified postprocedural states; Z79.899 Other long term (current) drug therapy
CPT/HCPCS: 99211

== ENCOUNTER → 2019-09-25 | Outpatient (CLI) | payer MEDICARE, OTHER ==
--- NOTE | 2019-09-27 14:55 | P.PAINPG ---
Subjective Progress Note Date: 09/27/19 THIS ENCOUNTER WAS PERFORMED A TELEMEDICINE VISIT VIA TWO-WAY AUDIO TO MINIMIZE RISK AND TRANSMISSION OF COVID-19. Saad presents today for follow-up secondary to his chronic pain. He has a chronic history of low back pain, right knee pain, right ankle pain. He's been on chronic opioid therapy as well as benzodiazepine therapy for long period of time. He denies any side effects from the medications. He denies any excessive sedation. In the recent past, his Valium was discontinued, following a wean, however he reported an adverse reaction to this, Valium was restarted, last prescription was diazepam 2.5 mg daily. he currently rates his pain as 7/10, primarily located in the low back and right knee. He describes the pain as constant, the pain feels like a "screwdriver digging into knee". Pain is better with medications, worse with twisting. Review of systems is negative for chest pain, shortness of breath, new onset weakness, numbness/tingling, abdominal pain, malaise, fever, night sweats, chills, homicidal or suicidal ideation, or bowel or bladder incontinence. He does report constant cough, this is unchanged. Objective Physical exam:unable to be performed at this telemetry visit as patient does not have video capabilities. Assessment and Plan Plan: Assessment and plan= Chronic right knee pain secondary to stress over the right knee/right geniculate neuralgia , status post right geniculate nerve block 2 without any benefit Patient was referred previously to orthopedic surgeon for evaluation chronic and current use of high-risk medication (opioids) and chronic use of Valium Today, he was given a prescription refill for [place] 10/325 every 4 hours dispense 180 with 1 refill, Valium 5 mg 15 tablets with one refill. we did discuss tapering of Valium at next visit. MAPS reviewed and it was appropriate Narcotic agreement is on file Interventional =none Referral= none today Follow-up= 2 months. PQRS Measure Charge Sheet PQRS Narrative: Smoking Status Former smoker Narcotic Agreement Date Signed 06/27/19 Hx Alcohol Use (MH) No Home Medications: Ambulatory Orders Butalb/APAP/Caff 50-325-40Mg [Fioricet 50-325-40] 1 tab PO Q4HR PRN 06/02/16 Famotidine 20 mg PO BID PRN 06/02/16 SUMAtriptan SUCCINATE [Imitrex] 25 mg PO DAILY PRN 06/02/16 predniSONE 5 mg PO DAILY PRN 06/02/16 Albuterol Inhaler (Mhu) [Ventolin Hfa Inhaler] 2 puff INHALATION Q4-6H PRN 06/30/16 Budesonide [Pulmicort Flexhaler] 2 puff INHALATION BID 06/30/16 Ergocalciferol (Vitamin D2) [Vitamin D2] 50,000 unit PO FR 06/30/16 Ketoconazole 2% Shampoo [Nizoral] 1 applic TOPICAL DIRECTED PRN 06/30/16 diphenhydrAMINE [Benadryl] 25 mg PO HS PRN 06/30/16 Loratadine [Claritin] 10 mg PO DAILY PRN 05/08/18 Melatonin 20 mg PO HS 08/28/18 Cbd Gummies 1 dose PO HS 04/30/19 Umeclidinium [place] [Incruse Ellipta] 1 puff INHALATION DAILY 04/30/19 Zolpidem [Ambien] 1 tab PO DAILY 05/02/19 Diazepam [Valium] 5 mg PO DAILY PRN 30 Days #15 tab 09/27/19 Diazepam [Valium] 5 mg PO DAILY PRN 30 Days #15 tab 09/27/19 HYDROcodone/APAP 10-325MG [[place] 10-325] 1 tab PO Q4-6H PRN 30 Days #180 tab 09/27/19 Hydrocodone/Acetaminophen [[place] 10-325] 1 - 2 tab PO Q4H PRN 30 Days #180 tab 09/27/19 Controlled Substance Measures - Controlled Substance Measures Is patient prescribed a controlled substance at discharge?: Yes When asked, does pt state using other controlled substances?: No If prescribed controlled substance>3 days was MAPS reviewed?: Yes If Rx opioid, was Start Talking consent form obtained?: Yes If opioid is for acute pain is fill amount 7 days or less?: No Was information provided regarding opioid addiction?: Yes
== END | disposition home or self-care (01) ==
LOC: PNWHC3 10:04
PROVIDERS: ATTEND Anesthesiology
DX: Z53.9 Procedure and treatment not carried out, unspecified reason (principal)

== ENCOUNTER → 2019-11-13 | Outpatient (CLI) | payer MEDICARE, OTHER ==
[2019-11-13 13:28] VITALS: BP 156/84; PULSE 66; RESP 20
--- NOTE | 2019-11-13 13:59 | P.PAINPG ---
Subjective Progress Note Date: 11/13/19 This is follow-up visit for this 64 years old male with a history of chronic pain. He has a chronic history of knee pain. He's been on chronic opioid therapy as well as benzodiazepine therapy for long period of time. He denies any side effects from the medications. He denies any excessive sedation. he has difficulty falling asleep at night. We referred him to see a light industrial supervisor for sleep disorder , and he reported that he was evaluated by the sleep medicine , also patient reported that he has tinnitus, and he is on Valium 5 mg every other day (decreased from before it was 3 times a day ) ,to help his tinnitus. At this point he has been using [place] 10 mg every 4 hours as needed for pain. He has been using Valium 5 mg 3 times a day for many years, as well and reports that the volume was started secondary tinnitus , He reports pain in his right knee along with chronic right lower extremity cellulitis. He had left hip replaced, and reports that he continues to have pain, and he is here for follow-up, and medication refill Objective - Vital Signs Vital signs: Vital Signs Temp Pulse 66 11/13/19 13:20 Resp 20 11/13/19 13:20 BP 156/84 11/13/19 13:20 Pulse Ox 97 11/13/19 13:20 - Exam Physical Examinations : 1-Constitutiona : Cooperative , not in acute distress . 2-HEENT : nech ; supple , no Lymphadenopathy , normal thyroid size . eyes : no ptosis , no icterus, no photophobia . 3- neurologic : Cranial nerve II to XII intact , no focal neurological deffecit . 4-psychatric : alert , oriented X 3 , appropriate affect , intact judgment and insight . 5-Lymphatic : no Lymphadenopathy . 6- musculoskeltal : Flexion and extension of right knee , associated to severe pain there is no sign of effusion, no erythema Assessment and Plan Plan: Chronic right knee pain secondary to stress over the right knee/right geniculate neuralgia , status post right geniculate a block 2 without any benefit Patient was referred previously to orthopedic surgeon for evaluation Insomnia= patient reported that he always had difficulty sleeping at night he stayed for a few days without any sleep chronic and current use of high-risk medication (opioids) and chronic use of Valium Patient denies any side effects of the current pain medication and the current treatment/medication and able the patient to do activity of daily living , Diagnoses, prognosis, treatment options, including but not limited to physical therapy, medication management, interventional therapies, and surgery, were discussed with the patient All the questions answered Patient signed the narcotic agreement, and he was orally counseled, not to overuse, not to abuse, not to Divert , not tp sell pain medication, and to take it as prescribed only, Patient was counseled not to drive or operate heavy equipment while using narcotic medication, and advised not to use alcohol or any Illicit drugs while using the narcotis, the patient's verbalized understanding that lack of compliance with any of the above instructions and will likely to cause discharge from the pain service, not to renew his narcotic prescriptions Medication managements= patient will be given prescription refills for 1-[place] 10/325 2 tablets every 8 hours dispense 180 with 1 refil, continue volume Valium 5 mg every other day hours dispense 15 MAPS reviewed and it was okay Urine drug screen ordered Time with Patient: Less than 30 PQRS Measure Charge Sheet Measure #130: Documentation of Current Meds in Medical Chart: Patient's medications documented in chart Measure #226: Tobacco Use: Screen & Cessation Intervention: Pt not a tobacco user Measure #111: Pneumonia Vaccination: Pneumococcal vaccine NOT administered or previously given Measure #47: Advance Care Plan: Advance care planning discussed & documented, pt chose/unable to give Measure #412: Opioid Treatment Agreement: Documented signed opioid trtmnt agreemnt min once during opioid trtmnt Measure #408: Opioid Therapy Follow-up Evaluation: Patient had f/u eval minimum every 3 months during opioid therapy Measure #317: Preventitive Care & Scrn High Bld Press & F/U: Pre-hypertensive or hypertensive BP documented, pt will f/u with PCP Measure #128: Body Mass Index (BMI) Screening & Follow-up: BMI documented ABOVE normal parameters - f/u documented Measure #131: Pain Assessment & Follow-up: Pain positive & plan documented, Follow-up scheduled Measure #431: Unhealthy Alcohol Use Preventative Care & Scrn: Patient not identified as an unhealthy alcohol user PQRS Narrative: Smoking Status Former smoker Narcotic Agreement Date Signed 06/27/19 Blood Pressure 156/84 Pain Intensity [Head] 10 Pain Intensity [Neck] 10 Pain Intensity [Jaw] 10 Pain Intensity [Right Ankle] 10 Pain Intensity [Right Knee] 10 Pain Intensity [Back] 10 Scale Used Numeric (1 - 10) Hx Alcohol Use (MH) No Home Medications: Ambulatory Orders Butalb/APAP/Caff 50-325-40Mg [Fioricet 50-325-40] 1 tab PO Q4HR PRN 06/02/16 Famotidine 20 mg PO BID PRN 06/02/16 SUMAtriptan SUCCINATE [Imitrex] 25 mg PO DAILY PRN 06/02/16 predniSONE 5 mg PO DAILY PRN 06/02/16 Albuterol Inhaler (Mhu) [Ventolin Hfa Inhaler] 2 puff INHALATION Q4-6H PRN 06/30/16 Budesonide [Pulmicort Flexhaler] 2 puff INHALATION BID 06/30/16 Ergocalciferol (Vitamin D2) [Vitamin D2] 50,000 unit PO FR 06/30/16 Ketoconazole 2% Shampoo [Nizoral] 1 applic TOPICAL DIRECTED PRN 06/30/16 diphenhydrAMINE [Benadryl] 25 mg PO HS PRN 06/30/16 Loratadine [Claritin] 10 mg PO DAILY PRN 05/08/18 Melatonin 20 mg PO HS 08/28/18 Cbd Gummies 1 dose PO HS 04/30/19 Umeclidinium [place] [Incruse Ellipta] 1 puff INHALATION DAILY 04/30/19 Zolpidem [Ambien] 1 tab PO DAILY 05/02/19 Diazepam [Valium] 5 mg PO DAILY PRN 30 Days #15 tab 09/27/19 Diazepam [Valium] 5 mg PO DAILY PRN 30 Days #15 tab 09/27/19 HYDROcodone/APAP 10-325MG [[place] 10-325] 1 tab PO Q4-6H PRN 30 Days #180 tab 09/27/19 Hydrocodone/Acetaminophen [[place] 10-325] 1 - 2 tab PO Q4H PRN 30 Days #180 tab 09/27/19 Controlled Substance Measures - Controlled Substance Measures Is patient prescribed a controlled substance at discharge?: Yes When asked, does pt state using other controlled substances?: No If prescribed controlled substance>3 days was MAPS reviewed?: Yes If Rx opioid, was Start Talking consent form obtained?: Yes If opioid is for acute pain is fill amount 7 days or less?: No Was information provided regarding opioid addiction?: Yes
== END | disposition home or self-care (01) ==
LOC: PNWHC3 13:05
PROVIDERS: ATTEND Specialist
DX: M25.561 Pain in right knee (principal); M79.2 Neuralgia and neuritis, unspecified; Z98.890 Other specified postprocedural states; Z79.891 Long term (current) use of opiate analgesic; Z79.899 Other long term (current) drug therapy; Z79.52 Long term (current) use of systemic steroids
CPT/HCPCS: 80307; G0482; G0463; 99211

== ENCOUNTER → 2020-01-08 | Outpatient (CLI) | payer MEDICARE, OTHER ==
[2020-01-08 12:50] VITALS: BP 157/79; PULSE 77; RESP 16
--- NOTE | 2020-01-08 12:54 | P.PAINPG ---
Subjective Progress Note Date: 01/07/20 This is follow-up visit for this 64 years old male with a history of chronic pain. He has a chronic history of knee pain. He's been on chronic opioid therapy as well as benzodiazepine therapy for long period of time. He denies any side effects from the medications. He denies any excessive sedation. he has difficulty falling asleep at night. Past referred him to his anglesmith helper to evaluate for sleep disorder. He also reported tinnitus and 90s on Valium 5 mg every other day to help with his tinnitus. At this point he has been using [place] 10 mg every 4 hours as needed for pain. He has been using Valium 5 mg 3 times a day for many years, as well and reports that the volume was started secondary tinnitus , He reports pain in his right knee along with chronic right lower extremity cellulitis. He had left hip replaced, and reports that he continues to have pain, and he is here for follow- up, and medication refill. Patient reports that he is doing well at this time. His pain quality and severity is not changed over time. His medications are helping with his pain. Overall he is comfortable with the current regimen He denies any side effects from the medication. He also denies any symptoms of cauda equina syndrome such as bowel or bladder incontinence, saddle anesthesia, or any new onset lower extremity weakness Review of systems is negative for chest pain, shortness of breath, new onset weakness, numbness/tingling, abdominal pain, malaise, fever, night sweats, chills, homicidal or suicidal ideation, or bowel or bladder incontinence. Objective Physical Examinations : 1-Constitutiona : Cooperative , not in acute distress . 2-HEENT : nech ; supple , no Lymphadenopathy , normal thyroid size . eyes : no ptosis , no icterus, no photophobia . 3- neurologic : Cranial nerve II to XII intact , no focal neurological deffecit . 4-psychatric : alert , oriented X 3 , appropriate affect , intact judgment and insight . 5-Lymphatic : no Lymphadenopathy . 6- musculoskeltal : Flexion and extension of right knee , associated to severe pain there is no sign of effusion, no erythema Assessment and Plan Plan: Chronic right knee pain secondary to stress over the right knee/right geniculate neuralgia , status post right geniculate a block 2 without any benefit Patient was referred previously to orthopedic surgeon for evaluation Insomnia= patient reported that he always had difficulty sleeping at night he stayed for a few days without any sleep chronic and current use of high-risk medication (opioids) and chronic use of Valium Patient denies any side effects of the current pain medication and the current treatment/medication and able the patient to do activity of daily living , Diagnoses, prognosis, treatment options, including but not limited to physical therapy, medication management, interventional therapies, and surgery, were discussed with the patient All the questions answered Patient signed the narcotic agreement, and he was orally counseled, not to overuse, not to abuse, not to Divert , not tp sell pain medication, and to take it as prescribed only, Patient was counseled not to drive or operate heavy equipment while using narcotic medication, and advised not to use alcohol or any Illicit drugs while using the narcotis, the patient's verbalized understanding that lack of compliance with any of the above instructions and will likely to cause discharge from the pain service, not to renew his narcotic prescriptions Medication managements= patient will be given prescription refills for 1-[place] 10/325 2 tablets every 8 hours dispense 180 with 1 refil, continue volume Valium 5 mg every other day hours dispense 15 MAPS reviewed and it was okay Smoking Status Former smoker Narcotic Agreement Date Signed 06/27/19 Blood Pressure 156/84 Pain Intensity [Head] 10 Pain Intensity [Neck] 10 Pain Intensity [Jaw] 10 Pain Intensity [Right Ankle] 10 Pain Intensity [Right Knee] 10 Pain Intensity [Back] 10 Scale Used Numeric (1 - 10) Hx Alcohol Use (MH) No Controlled Substance Measures - Controlled Substance Measures Is patient prescribed a controlled substance at discharge?: Yes When asked, does pt state using other controlled substances?: No If prescribed controlled substance>3 days was MAPS reviewed?: Yes If Rx opioid, was Start Talking consent form obtained?: Yes If opioid is for acute pain is fill amount 7 days or less?: No Was information provided regarding opioid addiction?: Yes PQRS Measure Charge Sheet PQRS Narrative: Smoking Status Former smoker Narcotic Agreement Date Signed 06/27/19 Pain Intensity [Lower Back] 10 Hx Alcohol Use (MH) No Home Medications: Ambulatory Orders Butalb/APAP/Caff 50-325-40Mg [Fioricet 50-325-40] 1 tab PO Q4HR PRN 06/02/16 Famotidine 20 mg PO BID PRN 06/02/16 SUMAtriptan succinate [Imitrex] 25 mg PO DAILY PRN 06/02/16 predniSONE 5 mg PO DAILY PRN 06/02/16 Albuterol Inhaler (Mhu) [Ventolin Hfa Inhaler] 2 puff INHALATION Q4-6H PRN 06/30/16 Budesonide [Pulmicort Flexhaler] 2 puff INHALATION BID 06/30/16 Ergocalciferol (Vitamin D2) [Vitamin D2] 50,000 unit PO FR 06/30/16 Ketoconazole 2% Shampoo [Nizoral] 1 applic TOPICAL DIRECTED PRN 06/30/16 diphenhydrAMINE [Benadryl] 25 mg PO HS PRN 06/30/16 Loratadine [Claritin] 10 mg PO DAILY PRN 05/08/18 Melatonin 20 mg PO HS 08/28/18 Umeclidinium [place] [Incruse Ellipta] 1 puff INHALATION DAILY 04/30/19 Zolpidem [Ambien] 1 tab PO DAILY 05/02/19 Albuterol Nebulized [Ventolin Nebulized] 2.5 mg INHALATION BID 01/01/20 Hydrocodone/Acetaminophen [[place] 10-325] 1 - 2 tab PO Q4H PRN 30 Days #180 tab 01/08/20 Hydrocodone/Acetaminophen [[place] 10-325] 1 tab PO Q4H PRN #180 tab 01/08/20 diazePAM [Valium] 5 mg PO DAILY PRN 30 Days #15 tab 01/08/20 Controlled Substance Measures - Controlled Substance Measures Is patient prescribed a controlled substance at discharge?: Yes When asked, does pt state using other controlled substances?: No If prescribed controlled substance>3 days was MAPS reviewed?: Yes If Rx opioid, was Start Talking consent form obtained?: No Was information provided regarding opioid addiction?: No
== END | disposition home or self-care (01) ==
LOC: PNWHC3 12:23
PROVIDERS: ATTEND Anesthesiology
DX: G89.29 Other chronic pain (principal); M25.561 Pain in right knee; G47.00 Insomnia, unspecified; F43.9 Reaction to severe stress, unspecified; Z98.890 Other specified postprocedural states; Z87.891 Personal history of nicotine dependence; F11.90 Opioid use, unspecified, uncomplicated; Z79.1 Long term (current) use of non-steroidal anti-inflammatories (NSAID); Z79.51 Long term (current) use of inhaled steroids
CPT/HCPCS: 99211

== ENCOUNTER → 2020-03-04 | Outpatient (CLI) | payer MEDICARE, OTHER ==
[2020-03-04 10:05] VITALS: BP 144/75; PULSE 73; RESP 20; TEMP 97.8
--- NOTE | 2020-03-04 10:22 | P.PN ---
Subjective Progress Note Date: 03/04/20 this is a 64-year-old gentleman with history of chronic pain with opioid dependence. He feels the pain in the right knee lower back, left hip. He did havesurgery on the left hip however he was told that he'll not get good results if he gets surgery on the right knee. The patient used to be on high-dose of [place] about 300 pills per month and we went down to 180 pills per month. This dose is still high however. The Patient Is Fixated on His [place] Even Though I Told Him That He Might Have Opioid Hyperalgesia and He Might Be Doing Himself a disservice by taking this many pills of [place] every day.the patient also uses prednisone 5 mg if needed for his pain as he states and he gets these prescriptions from his primary care physician. He also was told by his primary care physician as he claims that prednisone has a blood thinning effect, which I refuted. Patient denies new-onset weakness, bowel/bladder incontinence, or any other signs or symptoms of cauda equina syndrome. There are no signs of acute intoxication, and no indications of medication diversion or overuse. In addition to above, 13-point review of systems is also negative for chest pain, shortness of breath, changes in vision, changes in hearing, new onset weakness, abdominal pain, diarrhea, extreme fatigue, malaise, fever, skin changes, homicidal or suicidal ideation, or bowel or bladder incontinence. Vital Signs: Reviewed in EMR Gen: AAOx3, NAD HEENT: PERRLA,hearing grossly normal Pulm: resp unlabored Neck: supple, trachea midline positive tenderness in the lumbar paravertebral musculature positive tenderness around the right knee joint Significant swelling and edema in the right leg from the knee joint down Neuro: CN II-XII grossly intact, Imaging: Reviewed in EMR/chart Assessment: morbid obesity Thoracic aortic aneurysm Osteoarthritis Right knee history of DVT lumbar spondylosis without myelopathy opioid dependence Plan: 1. Explanation: Opioid and psychological risk scores were reviewed. Diagnoses, prognoses, and multiple treatment options including but not limited to physical therapy, interventional therapies, adjuvant medical therapies, narcotic medication therapies, and surgery were discussed with the patient and all questions were answered to the patient's satisfaction. 2. Opioid agreement: Signed with the patient and the patient is warned not to use opioids while driving or before driving and not to combine opioids with benzodiazepines or alcohol. 3. Counseling: The patient was counseled extensively on SMOKING CESSATION, BODY MASS INDEX, EXERCISE. Specifically, the patient was instructed regarding the importance of smoking cessation, obesity, and exercise in the context of both chronic pain and overall health. 4. Procedures: none 5. Consultations: the patient may still need to see an orthopedic surgeon for possible right knee replacement. 6. Investigations: None 7. Medications: continue [place] as needed. Plan to wean the patient down gradually in the future. 8. Disposition: return to clinic in 8 weeks 9. Maps were reviewed and were appropriate. Controlled Substance Measures Is patient prescribed a controlled substance at discharge?: Yes When asked, does pt state using other controlled substances?: No If prescribed controlled substance>3 days was MAPS reviewed?: Yes If Rx opioid, was Start Talking consent form obtained?: Yes If opioid is for acute pain is fill amount 7 days or less?: No Was information provided regarding opioid addiction?: Yes Objective - Vital Signs Vital signs: Vital Signs Temp 97.8 F 03/04/20 09:59 Pulse 73 03/04/20 09:59 Resp 20 03/04/20 09:59 BP 144/75 03/04/20 09:59 Pulse Ox Intake & Output 03/03/20 03/04/20 03/04/20 18:59 06:59 18:59 Weight 130.635 kg
== END | disposition home or self-care (01) ==
LOC: PNWHC3 09:50
PROVIDERS: ATTEND Anesthesiology
DX: M47.816 Spondylosis without myelopathy or radiculopathy, lumbar region (principal); E66.01 Morbid (severe) obesity due to excess calories; I71.2 Thoracic aortic aneurysm, without rupture; M17.11 Unilateral primary osteoarthritis, right knee; Z86.718 Personal history of other venous thrombosis and embolism; F11.20 Opioid dependence, uncomplicated
CPT/HCPCS: 99211

== ENCOUNTER → 2020-04-29 | Outpatient (CLI) | payer MEDICARE, OTHER ==
[2020-04-29 09:56] VITALS: BP 174/89; PULSE 93; RESP 22
--- NOTE | 2020-04-30 12:24 | P.PN ---
Subjective Progress Note Date: 04/29/20 This is follow-up visit for this 64 years old male with a history of chronic pain. He has a chronic history of knee pain. Chronic low back pain secondary to lumbar spondylosis with lumbar facet arthropathy without myelopathy , He's been on chronic opioid therapy ,as well as benzodiazepine therapy for long period of time. He denies any side effects from the medications. He denies any excessive sedation. he has difficulty falling asleep at night. We referred him to see a mail technician for sleep disorder , and he reported that he was evaluated by the sleep medicine , also patient reported that he has tinnitus, and he is on Valium 5 mg every other day (decreased from before it was 3 times a day ) ,to help his tinnitus. At this point he has been using [place] 10 mg every 4 hours as needed for pain. He has been using Valium 5 mg 3 times a day for many years, as well and reports that the volume was started secondary tinnitus , He reports pain in his right knee along with chronic right lower extremity cellulitis. He had left hip replaced, and reports that he continues to have pain, and he is here for follow-up, and medication refill, patient reported that he had more numbness and tingling sensation in his lower extremity and has been diagnosed with peripheral neuropathy Objective - Vital Signs Vital signs: Vital Signs Temp Pulse 93 04/29/20 09:51 Resp 22 04/29/20 09:51 BP 174/89 04/29/20 09:51 Pulse Ox - Exam Physical Examinations : 1-Constitutiona : Cooperative , not in acute distress . 2-HEENT : nech ; supple , no Lymphadenopathy , normal thyroid size . eyes : no ptosis , no icterus, no photophobia . 3- neurologic : Cranial nerve II to XII intact , no focal neurological deffecit . 4-psychatric : alert , oriented X 3 , appropriate affect , intact judgment and insight . 5-Lymphatic : no Lymphadenopathy . 6- musculoskeltal : Flexion and extension of right knee , associated to severe pain there is no sign of effusion, no erythema Assessment and Plan Plan: Chronic right knee pain secondary to stress over the right knee/right geniculate neuralgia , status post right geniculate a block 2 without any benefit Lumbar spondylosis with lumbar facet arthropathy without myelopathy Patient currently complaining of severe numbness and tingling sensation in the lower extremity bilaterally, patient reported that he was previously diagnosed with peripheral neuropathy Patient was referred previously to orthopedic surgeon for evaluation Insomnia= patient reported that he always had difficulty sleeping at night he stayed for a few days without any sleep chronic and current use of high-risk medication (opioids) and chronic use of Valium Patient denies any side effects of the current pain medication and the current treatment/medication and able the patient to do activity of daily living , Diagnoses, prognosis, treatment options, including but not limited to physical therapy, medication management, interventional therapies, and surgery, were discussed with the patient All the questions answered Patient signed the narcotic agreement, and he was orally counseled, not to overuse, not to abuse, not to Divert , not tp sell pain medication, and to take it as prescribed only, Patient was counseled not to drive or operate heavy equipment while using narcotic medication, and advised not to use alcohol or any Illicit drugs while using the narcotis, the patient's verbalized understanding that lack of compliance with any of the above instructions and will likely to cause discharge from the pain service, not to renew his narcotic prescriptions Medication managements= patient will be given prescription refills for 1-[place] 10/325 2 tablets every 8 hours dispense 180 with 1 refil, continue volume Valium 5 mg every other day hours dispense 15 Patient could benefit from Neurontin 200 mg 3 times a day. Next visit. we will do Urine drug screen MAPS reviewed and it was okay Urine drug screen ordered Time with Patient: Less than 30 PQRS Measure Charge Sheet Measure #130: Documentation of Current Meds in Medical Chart: Patient's medications documented in chart Measure #226: Tobacco Use: Screen & Cessation Intervention: Pt not a tobacco user Measure #111: Pneumonia Vaccination: Pneumococcal vaccine NOT administered or previously given Measure #47: Advance Care Plan: Advance care planning discussed & documented, pt chose/unable to give Measure #412: Opioid Treatment Agreement: Documented signed opioid trtmnt agreemnt min once during opioid trtmnt Measure #408: Opioid Therapy Follow-up Evaluation: Patient had f/u eval minimum every 3 months during opioid therapy Measure #317: Preventitive Care & Scrn High Bld Press & F/U: Pre-hypertensive or hypertensive BP documented, pt will f/u with PCP Measure #128: Body Mass Index (BMI) Screening & Follow-up: BMI documented ABOVE normal parameters - f/u documented Measure #131: Pain Assessment & Follow-up: Pain positive & plan documented, Follow-up scheduled Measure #431: Unhealthy Alcohol Use Preventative Care & Scrn: Patient not identified as an unhealthy alcohol user PQRS Narrative: Time with Patient: Less than 30
== END | disposition home or self-care (01) ==
LOC: PNWHC3 09:35
PROVIDERS: ATTEND Specialist
DX: G89.29 Other chronic pain (principal); M47.816 Spondylosis without myelopathy or radiculopathy, lumbar region; G58.8 Other specified mononeuropathies; M25.561 Pain in right knee
CPT/HCPCS: 99211

== ENCOUNTER → 2020-06-24 | Outpatient (CLI) | payer MEDICARE, OTHER ==
[2020-06-24 10:23] VITALS: BP 166/74; PULSE 85; RESP 16; TEMP 96.8
--- NOTE | 2020-06-24 10:39 | P.PN ---
Subjective Progress Note Date: 06/24/20 This is follow-up visit for this 64 years old male with a history of chronic pain. He has chronic history of knee pain,and Chronic low back pain secondary to lumbar spondylosis with lumbar facet arthropathy without myelopathy , He's been on chronic opioid therapy ,as well as benzodiazepine therapy for long period of time. He denies any side effects from the medications. He denies any excessive sedation. he has difficulty falling asleep at night. We referred him to see a map colorer for sleep disorder , and he reported that he was evaluated by the sleep medicine , also patient reported that he has tinnitus, and he is on Valium 5 mg every other day (decreased from before it was 3 times a day ) ,to help his tinnitus. At this point he has been using [place] 10 mg every 4 hours as needed for pain. He has been using Valium 5 mg 3 times a day for many years, as well and reports that the volume was started secondary tinnitus , He reports pain in his right knee along with chronic right lower extremity cellulitis. He had left hip replaced, and reports that he continues to have pain, and he is here for follow-up, and medication refill, patient reported that he had more numbness and tingling sensation in his lower extremity and has been diagnosed with peripheral neuropathy patient was taking the Neurontin 100 mg 2 tablets 3 times a day and he stopped taking it because he had side effects from the Neurontin which is generalized joint pain, and he is asking if he can replace this medication with different one of his pain Objective - Vital Signs Vital signs: Vital Signs Temp 96.8 F L 06/24/20 10:19 Pulse 85 06/24/20 10:19 Resp 16 06/24/20 10:19 BP 166/74 06/24/20 10:19 Pulse Ox 92 L 06/24/20 10:19 - Exam Physical Examinations : 1-Constitutiona : Cooperative , not in acute distress . 2-HEENT : nech ; supple , no Lymphadenopathy , normal thyroid size . eyes : no ptosis , no icterus, no photophobia . 3- neurologic : Cranial nerve II to XII intact , no focal neurological deffecit . 4-psychatric : alert , oriented X 3 , appropriate affect , intact judgment and insight . 5-Lymphatic : no Lymphadenopathy . 6- musculoskeltal : Flexion and extension of right knee , associated to severe pain there is no sign of effusion, no erythema Assessment and Plan Plan: Chronic right knee pain secondary to stress over the right knee/right geniculate neuralgia , status post right geniculate a block 2 without any benefit Lumbar spondylosis with lumbar facet arthropathy without myelopathy Patient currently complaining of severe numbness and tingling sensation in the lower extremity bilaterally, patient reported that he was previously diagnosed with peripheral neuropathy Patient was referred previously to orthopedic surgeon for evaluation Insomnia= patient reported that he always had difficulty sleeping at night he stayed for a few days without any sleep chronic and current use of high-risk medication (opioids) and chronic use of Valium Patient denies any side effects of the current pain medication and the current treatment/medication and able the patient to do activity of daily living , Diagnoses, prognosis, treatment options, including but not limited to physical therapy, medication management, interventional therapies, and surgery, were discussed with the patient All the questions answered Patient signed the narcotic agreement, and he was orally counseled, not to overuse, not to abuse, not to Divert , not tp sell pain medication, and to take it as prescribed only, Patient was counseled not to drive or operate heavy equipment while using narcotic medication, and advised not to use alcohol or any Illicit drugs while using the narcotis, the patient's verbalized understanding that lack of compliance with any of the above instructions and will likely to cause discharge from the pain service, not to renew his narcotic prescriptions Medication managements= patient will be given prescription refills for 1-[place] 10/325 2 tablets every 8 hours dispense 180 with 1 refil, continue volume Valium 5 mg every other day hours dispense 15 (Patient getting prescription refill for Ambien 5 mg daily at bedtime from his primary care but he reported that his primary caregivers on medication and he continued his refill on Ambien for this reason I gave him only prescription for this months and the next was able to get prescription refill for Ambien from his primary care ) Discontinue Neurontin Start patient on Lyrica 50 mg twice a day MAPS reviewed and it was okay Urine drug screen ordered Time with Patient: Less than 30 PQRS Measure Charge Sheet Measure #130: Documentation of Current Meds in Medical Chart: Patient's medications documented in chart Measure #226: Tobacco Use: Screen & Cessation Intervention: Pt not a tobacco user Measure #111: Pneumonia Vaccination: Pneumococcal vaccine NOT administered or previously given Measure #47: Advance Care Plan: Advance care planning discussed & documented, pt chose/unable to give Measure #412: Opioid Treatment Agreement: Documented signed opioid trtmnt agreemnt min once during opioid trtmnt Measure #408: Opioid Therapy Follow-up Evaluation: Patient had f/u eval minimum every 3 months during opioid therapy Measure #317: Preventitive Care & Scrn High Bld Press & F/U: Pre-hypertensive or hypertensive BP documented, pt will f/u with PCP Measure #128: Body Mass Index (BMI) Screening & Follow-up: BMI documented ABOVE normal parameters - f/u documented Measure #131: Pain Assessment & Follow-up: Pain positive & plan documented, Follow-up scheduled Measure #431: Unhealthy Alcohol Use Preventative Care & Scrn: Patient not identified as an unhealthy alcohol use Time with Patient: Less than 30
== END | disposition home or self-care (01) ==
LOC: PNWHC3 10:02
PROVIDERS: ATTEND Specialist
DX: M47.816 Spondylosis without myelopathy or radiculopathy, lumbar region (principal); G47.00 Insomnia, unspecified; G62.9 Polyneuropathy, unspecified; G89.29 Other chronic pain; Z79.899 Other long term (current) drug therapy
CPT/HCPCS: 80307; G0482; G0463; 99212

== ENCOUNTER → 2020-08-19 | Outpatient (CLI) | payer MEDICARE, OTHER ==
[2020-08-19 09:56] VITALS: BP 167/77; PULSE 85; RESP 16; TEMP 98.6
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
== END ==
LOC: PNWHC3 09:40
PROVIDERS: ATTEND Hospitalist
DX: M47.812 Spondylosis without myelopathy or radiculopathy, cervical region (principal); M47.816 Spondylosis without myelopathy or radiculopathy, lumbar region; M75.102 Unspecified rotator cuff tear or rupture of left shoulder, not specified as traumatic; M25.562 Pain in left knee; M25.561 Pain in right knee
CPT/HCPCS: 99211

== ENCOUNTER → 2020-10-28 | Outpatient (CLI) | payer MEDICARE, OTHER ==
[2020-10-28 10:01] VITALS: BP 160/75; PULSE 79; RESP 20; TEMP 98.4
--- NOTE | 2020-10-28 10:43 | P.PN ---
Subjective Progress Note Date: 10/28/20 This is follow-up visit for this 65 years old male with a history of chronic pain. He has chronic history of knee pain,and Chronic low back pain secondary to lumbar spondylosis with lumbar facet arthropathy without myelopathy , He's been on chronic opioid therapy ,as well as benzodiazepine therapy for long period of time. He denies any side effects from the medications. He denies any excessive sedation. he has difficulty falling asleep at night. We referred him to see a billiard table assembler for sleep disorder , and he reported that he was evaluated by the sleep medicine , also patient reported that he has tinnitus, and he is on Valium 5 mg every other day (decreased from before it was 3 times a day ) ,to help his tinnitus. At this point he has been using [place] 10 mg every 4 hours as needed for pain. He has been using Valium 5 mg 3 times a day for many years, as well and reports that the volume was started secondary tinnitus , He reports pain in his right knee along with chronic right lower extremity cellulitis. He had left hip replaced, and reports that he continues to have pain, and he is here for follow-up, and medication refill, patient reported that he had more numbness and tingling sensation in his lower extremity and has been diagnosed with peripheral neuropathy patient was taking the Neurontin 100 mg 2 tablets 3 times a day and he stopped taking it because he had side effects from the Neurontin which is generalized joint pain, Neurontin was stopped, and patient was started on Lyrica milligrams 3 times a day, patient reported that he had side effects from the Lyrica which is sever swelling in his hands Objective - Vital Signs Vital signs: Vital Signs Temp 98.4 F 10/28/20 09:52 Pulse 79 10/28/20 09:52 Resp 20 10/28/20 09:52 BP 160/75 10/28/20 09:52 Pulse Ox 93 L 10/28/20 09:52 Intake & Output 10/27/20 10/28/20 10/28/20 18:59 06:59 18:59 Weight 131.088 kg - Exam Physical Examinations : 1-Constitutiona : Cooperative , not in acute distress . 2-HEENT : nech ; supple , no Lymphadenopathy , normal thyroid size . eyes : no ptosis , no icterus, no photophobia . 3- neurologic : Cranial nerve II to XII intact , no focal neurological deffecit . 4-psychatric : alert , oriented X 3 , appropriate affect , intact judgment and insight . 5-Lymphatic : no Lymphadenopathy . 6- musculoskeltal : Flexion and extension of right knee , associated to severe pain there is no sign of effusion, no erythema Assessment and Plan Chronic right knee pain secondary to stress over the right knee/right genicul ate neuralgia , status post right geniculate a block 2 without any benefit Lumbar spondylosis with lumbar facet arthropathy without myelopathy Patient currently complaining of severe numbness and tingling sensation in the lower extremity bilaterally, patient reported that he was previously diagnosed with peripheral neuropathy Patient was referred previously to orthopedic surgeon for evaluation Insomnia= patient reported that he always had difficulty sleeping at night he stayed for a few days without any sleep chronic and current use of high-risk medication (opioids) and chronic use of Valium Patient denies any side effects of the current pain medication and the current treatment/medication and able the patient to do activity of daily living , Diagnoses, prognosis, treatment options, including but not limited to physical therapy, medication management, interventional therapies, and surgery, were discussed with the patient All the questions answered Patient signed the narcotic agreement, and he was orally counseled, not to overuse, not to abuse, not to Divert , not tp sell pain medication, and to take it as prescribed only, Patient was counseled not to drive or operate heavy equipment while using narcotic medication, and advised not to use alcohol or any Illicit drugs while using the narcotis, the patient's verbalized understanding that lack of compliance with any of the above instructions and will likely to cause discharge from the pain service, not to renew his narcotic prescriptions Medication managements= patient will be given prescription refills for 1-[place] 10/325 2 tablets every 8 hours dispense 180 with 1 refil, continue volume Valium 5 mg every other day hours dispense 15 Discontinue Lyrica MAPS reviewed and it was okay Urine drug screen ordered Time with Patient: Less than 30 PQRS Measure Charge Sheet Measure #130: Documentation of Current Meds in Medical Chart: Patient's medications documented in chart Measure #226: Tobacco Use: Screen & Cessation Intervention: Pt not a tobacco user Measure #111: Pneumonia Vaccination: Pneumococcal vaccine NOT administered or previously given Measure #47: Advance Care Plan: Advance care planning discussed & documented, pt chose/unable to give Measure #412: Opioid Treatment Agreement: Documented signed opioid trtmnt agreemnt min once during opioid trtmnt Measure #408: Opioid Therapy Follow-up Evaluation: Patient had f/u eval minimum every 3 months during opioid therapy Measure #317: Preventitive Care & Scrn High Bld Press & F/U: Pre-hypertensive or hypertensive BP documented, pt will f/u with PCP Measure #128: Body Mass Index (BMI) Screening & Follow-up: BMI documented ABOVE normal parameters - f/u documented Measure #131: Pain Assessment & Follow-up: Pain positive & plan documented, Follow-up scheduled Measure #431: Unhealthy Alcohol Use Preventative Care & Scrn: Patient not identified as an unhealthy alcohol use Time with Patient: Less than 30
== END ==
LOC: PNWHC3 09:35
PROVIDERS: ATTEND Specialist
DX: M47.816 Spondylosis without myelopathy or radiculopathy, lumbar region (principal); M25.561 Pain in right knee; G89.29 Other chronic pain; G62.9 Polyneuropathy, unspecified; G47.00 Insomnia, unspecified; Z79.891 Long term (current) use of opiate analgesic; Z87.891 Personal history of nicotine dependence; Z88.0 Allergy status to penicillin; Z88.2 Allergy status to sulfonamides; Z88.5 Allergy status to narcotic agent; Z88.6 Allergy status to analgesic agent; Z91.041 Radiographic dye allergy status; Z91.040 Latex allergy status; Z91.030 Bee allergy status; Z88.3 Allergy status to other anti-infective agents; Z91.048 Other nonmedicinal substance allergy status
CPT/HCPCS: 99211

== ENCOUNTER → 2020-12-23 | Outpatient (CLI) | payer MEDICARE, OTHER ==
--- NOTE | 2020-12-23 10:07 | P.PAINPG ---
Subjective Progress Note Date: 12/23/20 This is follow-up visit for this 65 years old male with a history of chronic pain. He has chronic history of knee pain,and Chronic low back pain secondary to lumbar spondylosis with lumbar facet arthropathy without myelopathy , He's been on chronic opioid therapy ,as well as benzodiazepine therapy for long period of time. He denies any side effects from the medications. He denies any excessive sedation. In the past to refer him to a lease administration analyst for a sleep disorder as well as sleep medicine physician. He currently takes Valium to help with tinnitus as well as Pender 10 every 4 hours for pain. He has a history of a left hip replacement. He also had some peripheral neuropathy in the past in which she tried gabapentin and Lyrica but they caused him side effects so we have stopped those. At this time he complains of some pain in the left hip area and says that he will see his surgeon to have it evaluated. He also attributes some of his pain due to the weather. At this time he is comfortable with the current pain medications and is here for medication refill. Objective - Exam Physical Examinations : 1-Constitutiona : Cooperative , not in acute distress . 2-HEENT : nech ; supple , no Lymphadenopathy , normal thyroid size . eyes : no ptosis , no icterus, no photophobia . 3- neurologic : Cranial nerve II to XII intact , no focal neurological deffecit . 4-psychatric : alert , oriented X 3 , appropriate affect , intact judgment and insight . 5-Lymphatic : no Lymphadenopathy . 6- musculoskeltal : Flexion and extension of right knee , associated to severe pain there is no sign of effusion, no erythema Assessment and Plan Chronic right knee pain secondary to stress over the right knee/right geniculate neuralgia , status post right genicular nerve block 2 without any benefit Lumbar spondylosis with lumbar facet arthropathy without myelopathy Patient currently complaining of severe numbness and tingling sensation in the lower extremity bilaterally, patient reported that he was previously diagnosed with peripheral neuropathy Patient was referred previously to orthopedic surgeon for evaluation Insomnia= patient reported that he always had difficulty sleeping at night he stayed for a few days without any sleep chronic and current use of high-risk medication (opioids) and chronic use of Valium Patient denies any side effects of the current pain medication and the current treatment/medication and able the patient to do activity of daily living , Diagnoses, prognosis, treatment options, including but not limited to physical therapy, medication management, interventional therapies, and surgery, were discussed with the patient All the questions answered Patient signed the narcotic agreement, and he was orally counseled, not to overuse, not to abuse, not to Divert , not tp sell pain medication, and to take it as prescribed only, Patient was counseled not to drive or operate heavy equipment while using narcotic medication, and advised not to use alcohol or any Illicit drugs while using the narcotis, the patient's verbalized understanding that lack of compliance with any of the above instructions and will likely to cause discharge from the pain service, not to renew his narcotic prescriptions Medication managements= patient will be given prescription refills for 1-Pender 10/325 2 tablets every 8 hours dispense 180 with 1 refil, continue volume Valium 5 mg every other day hours dispense 15 UDS done today as well. MAPS reviewed and it was appropriate I have spent 22 minutes on review of the records, review of the imaging available, [id number] interaction with the patient, medication management, follow-up care coordination and record creation. PQRS Measure Charge Sheet Measure #130: Documentation of Current Meds in Medical Chart: Patient's medications documented in chart Measure #226: Tobacco Use: Screen & Cessation Intervention: Pt not a tobacco user Measure #111: Pneumonia Vaccination: Pneumococcal vaccine NOT administered or previously given Measure #47: Advance Care Plan: Advance care planning discussed & documented, pt chose/unable to give Measure #412: Opioid Treatment Agreement: Documented signed opioid trtmnt agreemnt min once during opioid trtmnt Measure #408: Opioid Therapy Follow-up Evaluation: Patient had f/u eval minimum every 3 months during opioid therapy Measure #317: Preventitive Care & Scrn High Bld Press & F/U: Pre-hypertensive or hypertensive BP documented, pt will f/u with PCP Measure #128: Body Mass Index (BMI) Screening & Follow-up: BMI documented ABOVE normal parameters - f/u documented Measure #131: Pain Assessment & Follow-up: Pain positive & plan documented, Follow-up scheduled Measure #431: Unhealthy Alcohol Use Preventative Care & Scrn: Patient not identified as an unhealthy alcohol use Time with Patient: Less than 30 PQRS Measure Charge Sheet PQRS Narrative: Smoking Status Former smoker Narcotic Agreement Date Signed 06/24/20 Hx Alcohol Use (MH) No Home Medications: Ambulatory Orders Butalb/APAP/Caff 50-325-40Mg [Fioricet 50-325-40] 1 - 2 tab PO Q4HR PRN 06/02/16 Famotidine 20 mg PO BID PRN 06/02/16 SUMAtriptan succinate [Imitrex] 25 mg PO DAILY PRN 06/02/16 predniSONE 5 mg PO DAILY PRN 06/02/16 Albuterol Inhaler (Mhu) [Ventolin Hfa Inhaler] 2 puff INHALATION Q4-6H PRN 06/30/16 Budesonide [Pulmicort Flexhaler] 2 puff INHALATION BID 06/30/16 Ergocalciferol (Vitamin D2) [Vitamin D2] 50,000 unit PO FR 06/30/16 Ketoconazole 2% Shampoo [Nizoral] 1 applic TOPICAL DIRECTED PRN 06/30/16 diphenhydrAMINE [Benadryl] 25 mg PO HS PRN 06/30/16 Melatonin 20 mg PO HS 08/28/18 Umeclidinium [place] [Incruse Ellipta] 1 puff INHALATION DAILY 04/30/19 Albuterol Nebulized [Ventolin Nebulized] 2.5 mg INHALATION BID 01/01/20 Finasteride [Proscar] 5 mg PO DAILY 06/17/20 Loratadine-Pseudoeph 10-240 mg [Claritin-D 24 Hour] 1 tab PO DAILY PRN 06/17/20 Zolpidem [Ambien] 1 tab PO DAILY #30 tab 06/24/20 HYDROcodone/APAP 10-325MG [Pender 10-325] 1 tab PO Q4H PRN 30 Days #180 tab 12/23/20 HYDROcodone/APAP 10-325MG [Pender 10-325] 1 tab PO Q4HR PRN 30 Days #180 tab 12/23/20 diazePAM [Valium] 5 mg PO DAILY PRN #15 tab 12/23/20 Controlled Substance Measures - Controlled Substance Measures Is patient prescribed a controlled substance at discharge?: Yes When asked, does pt state using other controlled substances?: No If prescribed controlled substance>3 days was MAPS reviewed?: Yes If Rx opioid, was Start Talking consent form obtained?: Yes If opioid is for acute pain is fill amount 7 days or less?: No Was information provided regarding opioid addiction?: No
[2020-12-23 10:25] VITALS: BP 117/82; PULSE 82; RESP 18; TEMP 97.7
== END ==
LOC: PNWHC3 09:45
PROVIDERS: ATTEND Anesthesiology
DX: M47.816 Spondylosis without myelopathy or radiculopathy, lumbar region (principal); M25.561 Pain in right knee; G62.9 Polyneuropathy, unspecified; G89.29 Other chronic pain; G47.00 Insomnia, unspecified; Z79.891 Long term (current) use of opiate analgesic; F13.20 Sedative, hypnotic or anxiolytic dependence, uncomplicated; Z87.891 Personal history of nicotine dependence; Z88.6 Allergy status to analgesic agent; Z91.030 Bee allergy status; Z88.5 Allergy status to narcotic agent; Z88.0 Allergy status to penicillin; Z88.8 Allergy status to other drugs, medicaments and biological substances; Z88.2 Allergy status to sulfonamides; Z88.1 Allergy status to other antibiotic agents; Z91.040 Latex allergy status
CPT/HCPCS: 80307; G0482; G0463; 99212

== ENCOUNTER → 2021-02-17 | Outpatient (CLI) | payer MEDICARE, OTHER ==
[2021-02-17 10:47] VITALS: BP 137/74; PULSE 70; RESP 18; TEMP 98
--- NOTE | 2021-02-17 12:16 | P.PN ---
Subjective Progress Note Date: 02/17/21 Principal diagnosis: generalized body pain, and multiple joint pain Mr. Penn is a 65-year-old pleasant male came to the [facility] pain clinic for prescription refill. Patient has ongoing chronic low back pain, and multiple joint pain for many years. And also patient has history of tinnitus for which she was taking Valium 40 mg by mouth daily which was helping very well as per patient. But his Valium was gradually decreased over a period of time secondary to risk of opioid interaction and respiratory depression. Today patient describes his pain is aching throbbing type of pain is 8 -10out of 10 in severity with the help of pain medications his pain levels are 6-7 out of 10 in severity.per patient is taking [place] 10/325 by mouth daily 4 hours as needed which is helping, so that he can able to perform his activities of daily living without any difficulty. He describes his pain is aching, throbbing type of pain. Activities making his pain worse. His pain is not radiating from lumbar back to lower extremities. But he is also expressing multiple joint pain. Pain medications helping in relieving his pain. Patient denied any red flag symptoms. Patient denied any bowel or bladder problems at this time. Patient denied any suicidal tendency or homicidal ideas at this time. No interval change from previous clinic visit. Patient denied any use of naloxone in the past 6 months. Objective - Vital Signs Vital signs: Vital Signs Temp 98.0 F 02/17/21 10:43 Pulse 70 02/17/21 10:43 Resp 18 02/17/21 10:43 BP 137/74 02/17/21 10:43 Pulse Ox 95 02/17/21 10:43 - Exam General: Well-developed, well-nourished, no acute distress HEENT: Normocephalic, and atraumatic Neck: Supple, no neck swelling Psychiatric: Appropriate mood, and affect POWDERER: No focal neurological deficits Musculoskeletal: Upper extremity: Normal strength, and range of motion. Sensation grossly intact Lower extremity: Normal strength, and decreased range of motion secondary to pain Lumbar spine: Paravertebral tenderness: positive Lumbar facet load test : positive Sacroiliac joint tenderness: Positive Thigh thrust test: Positive SI joint compression test: Positive Fabere test: Positive - Constitutional Constitutional Comment(s): 13 point review of symptoms negative except as mentioned in history of present illness Assessment and Plan Assessment: lumbar spondylosis without myelopathy, Sacroiliac joint dysfunction, Chronic pain syndrome, and myofascial pain syndrome morbid obesity Opioid dependent Multiple joint arthritis history of Valium intake for tinnitus Plan: 1 Opioid, and psychological risk tools, and scores were reviewed. Diagnoses, prognosis, and multiple treatment options including but not limited to physical therapy, interventional therapy, adjunct medication therapy, narcotic medication, and surgical options were discussed with the patient. And all questions were answered to the patient's satisfaction. #2 Opioid agreement: Patient was thoroughly discussed regarding the medication side effects, complications associated with narcotic use. Patient recommended do not drive while on narcotic medications, any other sedative medications, and illicit drugs including marijuana. Patient clearly understood. #3 Patient was counseled on importance of regular exercise. Including kenia chi, aerobic exercises as tolerated. Which helps for chronic pain, and overall well- being. Patient also counseled regarding importance of weight control rolling chronic pain, and overall other health issues. By altering diet habits, minimizing sugar intake, and processed foods helps in minimizing Inflammation. Also discussed with the patient regarding intermittent fasting. #4 consultation: none #5 investigations: MAPS , urine drug test- reviewed #6 interventional procedures: patient refused #7 medications #1 [place] 10/325 by mouth every 6 to you 4 hours as needed dispense 180 with no refill #2decreasedValium 5 mg by mouth daily as needed dispensefrom 15 pills to 10 with no refill. Had a lengthy discussion with the patient regarding plan to decrease his narcotic medications, and Valium as tolerated in future clinic visits. Plan to gradually decrease his Valium in future clinic visits #3 naloxone 4 mg intranasal for respiratory depression as needed dispense #2 Medication side effects, complications, long-term consequences discussed with the patient. Patient recommended to contact the pain clinic of notice any problems with given medications. #8 morphine milligrams equivalents dose ( MME) per day: 60 #9 TENS unit's #10 disposition scheduled to follow up with pain clinic in 4 weeks duration Time with Patient: Greater than 30
== END ==
LOC: PNWHC3 09:17
DX: M47.816 Spondylosis without myelopathy or radiculopathy, lumbar region (principal); M79.18 Myalgia, other site; E66.01 Morbid (severe) obesity due to excess calories; F11.20 Opioid dependence, uncomplicated; G89.4 Chronic pain syndrome; M13.88 Other specified arthritis, other site; M53.3 Sacrococcygeal disorders, not elsewhere classified; Z88.6 Allergy status to analgesic agent; Z91.030 Bee allergy status; Z91.041 Radiographic dye allergy status; Z91.040 Latex allergy status; Z88.5 Allergy status to narcotic agent; Z88.0 Allergy status to penicillin; Z88.2 Allergy status to sulfonamides; Z91.048 Other nonmedicinal substance allergy status; Z88.4 Allergy status to anesthetic agent; Z88.8 Allergy status to other drugs, medicaments and biological substances
CPT/HCPCS: 99211

== ENCOUNTER → 2021-03-17 | Outpatient (CLI) | payer MEDICARE, OTHER ==
--- NOTE | 2021-03-17 11:54 | P.PN ---
Subjective Progress Note Date: 03/17/21 Mr. Penn is a 65-year-old pleasant male came to the [facility] pain clinic for prescription refill. Patient has ongoing chronic low back pain, and multiple joint pain for many years. And also patient has history of tinnitus for which she was taking Valium 40 mg by mouth daily which was helping very well as per patient. But his Valium was gradually decreased over a period of time secondary to risk of opioid interaction and respiratory depression. Today patient describes his pain is aching throbbing type of pain is 8 -10out of 10 in severity with the help of pain medications his pain levels are 6-7 out of 10 in severity.per patient is taking Narco 10/325 by mouth daily 4 hours as needed which is helping, so that he can able to perform his activities of daily living without any difficulty. He describes his pain is aching, throbbing type of pain. Activities and excessive walking making his pain worse. His pain is not radiating from lumbar back to lower extremities. But he is also expressing multiple joint pain. Pain medications helping in relieving his pain. Patient denied any red flag symptoms. Patient denied any bowel or bladder problems at this time. Patient denied any suicidal tendency or homicidal ideas at this time. No interval change from previous clinic visit. Patient denied any use of naloxone in the past 6 months. Objective - Exam Physical Examinations : -Constitutiona : Cooperative , not in acute distress . -HEENT : nech : supple , no Lymphadenopathy , normal thyroid size . : eyes : no ptosis , no icterus, no photo phobia . - neurologic : Cranial nerve II to XII intact , no focal neurological deffecit . -psychatric : alert , oriented X 3 , appropriate affect , intact judgment and insight . -Lymphatic : no Lymphadenopathy . - musculoskeltal : Lumber spine moter stegnth lower extremities ,thigh and legs 5/5 Right side , 5/5 Left side deep tendon reflexes : normal Knee Jerk , normal ankle Jerk lumber facet Loading Test =positive Right , positive Left Range of motion of the lumbar spine Flexion 30 degrees, extension 10 degrees strait leg raising test = positive at 30 degree Fabere test= positive Right , and positive LT . Moderate tenderness over the Sacroiliac joint on the Right , and Left sides Gaenslen test= performed Seated flexion test= positive right ,and positive Left . Distraction test= positive bilaterally Sacroiliac compression test= positive bilaterally Assessment and Plan Assessment: Assessment: lumbar spondylosis without myelopathy, Sacroiliac joint dysfunction, Chronic pain syndrome, and myofascial pain syndrome morbid obesity Opioid dependent Multiple joint arthritis history of Valium intake for tinnitus Plan: 1 Opioid, and psychological risk tools, and scores were reviewed. Diagnoses, prognosis, and multiple treatment options including but not limited to physical therapy, interventional therapy, adjunct medication therapy, narcotic medication, and surgical options were discussed with the patient. And all questions were answered to the patient's satisfaction. #2 Opioid agreement: Patient was thoroughly discussed regarding the medication side effects, complications associated with narcotic use. Patient recommended do not drive while on narcotic medications, any other sedative medications, and illicit drugs including marijuana. Patient clearly understood. #3 Patient was counseled on importance of regular exercise. Including kenia chi, aerobic exercises as tolerated. Which helps for chronic pain, and overall well- being. Patient also counseled regarding importance of weight control rolling chronic pain, and overall other health issues. By altering diet habits, minimizing sugar intake, and processed foods helps in minimizing Inflammation. Also discussed with the patient regarding intermittent fasting. #4 consultation: none #5 investigations: MAPS , urine drug test- reviewed #6 interventional procedures: patient refused #7 medications #1 [place] 10/325 by mouth every 6 to you 4 hours as needed dispense 180 with no refill #2decreasedValium 5 mg by mouth daily as needed [id number] with no refill. Had a lengthy discussion with the patient regarding plan to decrease his narcotic medications, and Valium as tolerated in future clinic visits. Plan to gradually decrease his Valium in future clinic visits #3 naloxone 4 mg intranasal for respiratory depression as needed dispense #2 Medication side effects, complications, long-term consequences discussed with the patient. Patient recommended to contact the pain clinic of notice any problems with given medications. #8 morphine milligrams equivalents dose ( MME) per day: 60 #9 TENS unit's #10 disposition scheduled to follow up with pain clinic in 8 weeks duration Time with Patient: Greater than 30 Time with Patient: Less than 30
[2021-03-17 13:09] VITALS: BP 154/74; PULSE 80; RESP 18; TEMP 98.2
== END ==
LOC: PNWHC3 09:40
PROVIDERS: ATTEND Student in an Organized Health Care Education/Training Program
DX: M47.816 Spondylosis without myelopathy or radiculopathy, lumbar region (principal); M46.1 Sacroiliitis, not elsewhere classified; G89.4 Chronic pain syndrome; E66.01 Morbid (severe) obesity due to excess calories; F11.20 Opioid dependence, uncomplicated; M13.89 Other specified arthritis, multiple sites; Z86.69 Personal history of other diseases of the nervous system and sense organs; Z68.41 Body mass index [BMI] 40.0-44.9, adult; Z88.6 Allergy status to analgesic agent; Z91.030 Bee allergy status; Z88.8 Allergy status to other drugs, medicaments and biological substances; Z91.048 Other nonmedicinal substance allergy status; Z91.041 Radiographic dye allergy status; Z87.891 Personal history of nicotine dependence
CPT/HCPCS: 99211

== ENCOUNTER → 2021-05-12 | Outpatient (CLI) | payer MEDICARE, OTHER ==
[2021-05-12 10:38] VITALS: BP 153/78; PULSE 74; RESP 17; TEMP 98.3
--- NOTE | 2021-05-12 15:22 | P.PN ---
Subjective Progress Note Date: 05/12/21 This is follow-up visit for this 65 years old male with a history of chronic pain. He has chronic history of knee pain,and Chronic low back pain secondary to lumbar spondylosis with lumbar facet arthropathy without myelopathy , He's been on chronic opioid therapy ,as well as benzodiazepine therapy for long period of time. He denies any side effects from the medications. He denies any excessive sedation. he has difficulty falling asleep at night. We referred him to see a shellfish grower for sleep disorder , and he reported that he was evaluated by the sleep medicine , also patient reported that he has tinnitus, and he is on Valium 5 mg every other day (decreased from before it was 3 times a day ) ,to help his tinnitus. At this point he has been using [place] 10 mg every 4 hours as needed for pain. He has been using Valium 5 mg 3 times a day for many years, as well and reports that the volume was started secondary tinnitus , He reports pain in his right knee along with chronic right lower extremity cellulitis. He had left hip replaced, and reports that he continues to have pain, and he is here for follow-up, and medication refill, patient reported that he had more numbness and tingling sensation in his lower extremity and has been diagnosed with peripheral neuropathy patient was taking the Neurontin 100 mg 2 tablets 3 times a day and he stopped taking it because he had side effects from the Neurontin which is generalized joint pain, Neurontin was stopped, and patient was started on Lyrica , patient reported that he had side effects from the Lyrica which is sever swelling in his hands Physical Examinations : 1-Constitutiona : Cooperative , not in acute distress . 2-HEENT : nech ; supple , no Lymphadenopathy , normal thyroid size . eyes : no ptosis , no icterus, no photophobia . 3- neurologic : Cranial nerve II to XII intact , no focal neurological deffecit . 4-psychatric : alert , oriented X 3 , appropriate affect , intact judgment and insight . 5-Lymphatic : no Lymphadenopathy . 6- musculoskeltal : Flexion and extension of right knee , associated to severe pain there is no sign of effusion, no erythema Assessment and Plan Chronic right knee pain secondary to stress over the right knee/right geniculate neuralgia , status post right geniculate a block 2 without any benefit Lumbar spondylosis with lumbar facet arthropathy without myelopathy Patient currently complaining of severe numbness and tingling sensation in the lower extremity bilaterally, patient reported that he was previously diagnosed with peripheral neuropathy Patient was referred previously to orthopedic surgeon for evaluation Insomnia= patient reported that he always had difficulty sleeping at night he stayed for a few days without any sleep chronic and current use of high-risk medication (opioids) and chronic use of Valium Patient denies any side effects of the current pain medication and the current treatment/medication and able the patient to do activity of daily living , Diagnoses, prognosis, treatment options, including but not limited to physical therapy, medication management, interventional therapies, and surgery, were discussed with the patient All the questions answered Patient signed the narcotic agreement, and he was orally counseled, not to overuse, not to abuse, not to Divert , not tp sell pain medication, and to take it as prescribed only, Patient was counseled not to drive or operate heavy equipment while using narcotic medication, and advised not to use alcohol or any Illicit drugs while using the narcotis, the patient's verbalized understanding that lack of compliance with any of the above instructions and will likely to cause discharge from the pain service, not to renew his narcotic prescriptions Medication managements= patient will be given prescription refills for 1-Page 10/325 2 tablets every 8 hours dispense 180 with no refil, continue volume Valium 5 mg every other day hours dispense 15 MAPS reviewed and it was okay Urine drug screen showed that the patient positive for marijuana, And denies that he uses any marijuana and he reported that there is marijuana grower next to his house ,janellek kept insisting that he never used any marijuana he never uses alcohol, the urine drug screen was negative for Ambien ,he kept insisting that he take Ambien every night Urine drug screen was repeated today and patient will be seen in the clinic in 1 month's Time with Patient: Less than 30 PQRS Measure Charge Sheet Measure #130: Documentation of Current Meds in Medical Chart: Patient's medications documented in chart Measure #226: Tobacco Use: Screen & Cessation Intervention: Pt not a tobacco user Measure #111: Pneumonia Vaccination: Pneumococcal vaccine NOT administered or previously given Measure #47: Advance Care Plan: Advance care planning discussed & documented, pt chose/unable to give Measure #412: Opioid Treatment Agreement: Documented signed opioid trtmnt agreemnt min once during opioid trtmnt Measure #408: Opioid Therapy Follow-up Evaluation: Patient had f/u eval minimum every 3 months during opioid therapy Measure #317: Preventitive Care & Scrn High Bld Press & F/U: Pre-hypertensive or hypertensive BP documented, pt will f/u with PCP Measure #128: Body Mass Index (BMI) Screening & Follow-up: BMI documented ABOVE normal parameters - f/u documented Measure #131: Pain Assessment & Follow-up: Pain positive & plan documented, Follow-up scheduled Measure #431: Unhealthy Alcohol Use Preventative Care & Scrn: Patient not identified as an unhealthy alcohol use Time with Patient: Less than 30 Objective - Vital Signs Vital signs: Vital Signs Temp 98.3 F 05/12/21 10:21 Pulse 74 05/12/21 10:21 Resp 17 05/12/21 10:21 BP 153/78 05/12/21 10:21 Pulse Ox 93 L 05/12/21 10:21 Intake & Output 05/11/21 05/12/21 05/12/21 18:59 06:59 18:59 Weight 135.171 kg
== END ==
LOC: PNWHC3 09:40
PROVIDERS: ATTEND Specialist
DX: G89.29 Other chronic pain (principal); M25.561 Pain in right knee; M47.816 Spondylosis without myelopathy or radiculopathy, lumbar region; G58.8 Other specified mononeuropathies; R20.0 Anesthesia of skin; G47.00 Insomnia, unspecified; Z98.890 Other specified postprocedural states; Z79.891 Long term (current) use of opiate analgesic; Z87.891 Personal history of nicotine dependence; Z88.6 Allergy status to analgesic agent; Z91.030 Bee allergy status; Z88.4 Allergy status to anesthetic agent; Z91.041 Radiographic dye allergy status; Z91.040 Latex allergy status; Z88.5 Allergy status to narcotic agent; Z88.0 Allergy status to penicillin; Z88.2 Allergy status to sulfonamides; Z88.8 Allergy status to other drugs, medicaments and biological substances
CPT/HCPCS: 80307; G0482; G0463; 99211; 99212

== ENCOUNTER → 2021-06-09 | Outpatient (CLI) | payer MEDICARE, OTHER ==
[2021-06-09 11:41] VITALS: BP 177/88; PULSE 84; RESP 18
== END ==
LOC: PNWHC3 10:29
PROVIDERS: ATTEND Physician Assistant Medical
DX: M54.2 Cervicalgia (principal); M54.50 Low back pain, unspecified; M25.552 Pain in left hip; G43.909 Migraine, unspecified, not intractable, without status migrainosus; Z87.891 Personal history of nicotine dependence; Z86.718 Personal history of other venous thrombosis and embolism; Z86.73 Personal history of transient ischemic attack (TIA), and cerebral infarction without residual deficits; Z88.8 Allergy status to other drugs, medicaments and biological substances; Z88.6 Allergy status to analgesic agent; Z91.030 Bee allergy status; Z88.4 Allergy status to anesthetic agent; Z91.041 Radiographic dye allergy status; Z91.040 Latex allergy status; Z88.5 Allergy status to narcotic agent; Z88.0 Allergy status to penicillin; Z88.2 Allergy status to sulfonamides; Z91.048 Other nonmedicinal substance allergy status
CPT/HCPCS: 99211

== ENCOUNTER → 2021-08-04 | Outpatient (CLI) | payer MEDICARE, OTHER ==
--- NOTE | 2021-08-04 10:21 | P.PN ---
Subjective Progress Note Date: 08/04/21 Principal diagnosis: A 66 yr old male with a history of severe and chronic low back pain secondary to lumbar degenerative disc diseases and lumbar spondylosis with facet arthropathy and left shoulder pain presents today for medication refills. Patient states his lower back pain is 8 out of 10 in intensity, constant, achy, sore in the lower aspects of the lumbar spine as well as left shoulder pain is sharp, achy, on and off in character. Pain is provoked by walking, bending and lifting. Pain is alleviated with medications, lidocaine patches, ice, heat, low impact yoga, physical therapy in the past, use of a cane for ambulation, home stretching regimen, repositioning and rest. Interventional pain procedures completed include R Genicula Nerve Block Patient is currently on [place] 10/325mg #180 and Valium 5mg #15 Patient denies any side effects of the medication(s), denies excessive drowsiness or sleepiness, denies suicidal ideation and reports that the current pain medication is helping to control the pain and improve activities of daily living. Patient denies any motor or sensory deficits. Patient denies any fever or night sweats, denies any change in the bowel movements or urination. Physical Examination: -Constitutional: Cooperative. Not in acute distress . -HEENT: Neck is supple. No lymphadenopathy. No thyromegaly. Normal thyroid size. Eyes: No ptosis , no icterus, no photophobia. ENT: No auditory deficits. Normal oropharynx. No Thrush. - Respiratory: Chest clear to auscultations bilaterally. No wheezing. No rhonchi. - Cardiovascular: Regular rate and rhythm. S1 / S2 , no S3 , no S4. - Gastrointestinal: Abdomen soft no tenderness. Bowel sounds positive in all four quadrants. No organomegaly. - Genitourinary: Deferred. - Neurologic: Cranial nerve II to XII intact. No focal neurological defi cits. - Psychatric: Alert & oriented x 3. Matching mood & appropriate affect. Judgment and insight intact. - Lymphatic: No Lymphadenopathy. - Musculoskeletal: L AC/ GH joint line TTP Cervical spine: Muscle bulk/ tone/ strength in the bilateral upper extremities normal. Facet loading test cervical area positive. Lumbar spine: Motor bulk/ tone/ strength lower extremities , thigh and legs : 5/5 Deep tendon reflexes : Normal Knee Jerk. Normal Ankle Jerk . Vertebral body tenderness to palpation over L3, L4 Lumbar Facet Loading Test positive Straight Leg Raise: positive at 30 degrees right side/ left side Gaenslen's Test positive Sacral spine : Severe tenderness over the Sacroiliac joint: right side / left side Range of motion: Flexion of the lumbar spine <60 degrees Range of motion: Extension of the lumbar spine <20 degrees Gaenslen's Test positive Porsche test: positive right side / left side Assessment and plan: Chronic low back pain secondary to lumbar degenerative disc disease , lumbar spondylosis with facet arthropathy without myelopathy Chronic and current use of high-risk medication (Opioids). The patient was counseled about risk of opioid use, psychological risk associated with opioids and was orally counseled to not overuse , divert or sell medications. Pt is to store medication in a safe location. The patient is counseled against driving while using narcotic medications and also not to use alcohol or any illicit recreational drugs. Patient verbalized understanding that the lack of compliance will result in failure to renew narcotic prescription(s) as well as possible discharge from the clinic Diagnoses, prognosis and treatment options including but not limited to physical therapy, surgical interventions, interventional therapies and medication management including narcotics and adjuvant medication were discussed. All patient questions answered MAPS reviewed and it was appropriate. UDS from 05/11 reviewed and consistent. Prescription refill for [place] 10/325mg #180 with 1 refill and Valium 5mg #15 with refill. I have spent 31 minutes on patient care today. Dr Hartley was available by phone for the evaluation of this patient. The time was used to review the medical records including relevant urine studies and Prescription history (MAPs), review of the available imaging, evaluation and examination of the patient, coordination of care with the medical staff and if applicable referring physicians, as well as creation of the medical record PQRS Measure Charge Sheet PQRS Narrative: Smoking Status Former smoker Narcotic Agreement Date Signed 06/24/20 Hx Alcohol Use (MH) No Home Medications: Ambulatory Orders Butalb/APAP/Caff 50-325-40Mg [Fioricet 50-325-40] 1 - 2 tab PO Q4HR PRN 06/02/16 Famotidine 20 mg PO BID PRN 06/02/16 SUMAtriptan succinate [Imitrex] 25 mg PO DAILY PRN 06/02/16 Budesonide [Pulmicort Flexhaler] 2 puff INHALATION BID 06/30/16 Ergocalciferol (Vitamin D2) [Vitamin D2] 50,000 unit PO FR 06/30/16 Ketoconazole 2% Shampoo [Nizoral] 1 applic TOPICAL DIRECTED PRN 06/30/16 diphenhydrAMINE [Benadryl] 25 mg PO HS PRN 06/30/16 Melatonin 5 mg PO HS 08/28/18 Umeclidinium [place] [Incruse Ellipta] 1 puff INHALATION DAILY 04/30/19 Albuterol Nebulized [Ventolin Nebulized] 2.5 mg INHALATION BID 01/01/20 Finasteride [Proscar] 5 mg PO DAILY 06/17/20 Loratadine-Pseudoeph 10-240 mg [Claritin-D 24 Hour] 1 tab PO DAILY PRN 06/17/20 Albuterol Sulfate [Albuterol Sulfate Hfa] 2 puff PO Q6H PRN 06/03/21 Fluconazole [Diflucan] 100 mg PO DAILY PRN 06/03/21 Zolpidem [Ambien] 5 mg PO HS PRN 06/03/21 HYDROcodone/APAP 10-325MG [[place] 10-325] 1 tab PO Q4HR PRN 30 Days #180 tab 08/04/21 HYDROcodone/APAP 10-325MG [[place] 10-325] 1 tab PO Q4HR PRN 30 Days #180 tab 08/04/21 diazePAM [Valium] 5 mg PO DAILY PRN 30 Days #15 tab 08/04/21
[2021-08-04 10:37] VITALS: BP 162/90; PULSE 79; RESP 18; TEMP 98.3
== END ==
LOC: PNWHC3 09:08
PROVIDERS: ATTEND Physician Assistant Medical
DX: M51.36 Other intervertebral disc degeneration, lumbar region (principal); M47.816 Spondylosis without myelopathy or radiculopathy, lumbar region; G89.29 Other chronic pain; Z79.891 Long term (current) use of opiate analgesic; Z87.891 Personal history of nicotine dependence; Z88.6 Allergy status to analgesic agent; Z88.1 Allergy status to other antibiotic agents; Z91.030 Bee allergy status; Z91.041 Radiographic dye allergy status; Z91.040 Latex allergy status; Z88.0 Allergy status to penicillin; Z88.5 Allergy status to narcotic agent; Z88.2 Allergy status to sulfonamides; Z88.8 Allergy status to other drugs, medicaments and biological substances; Z91.048 Other nonmedicinal substance allergy status
CPT/HCPCS: 99211

== ENCOUNTER → 2021-11-24 | Outpatient (CLI) | payer MEDICARE, OTHER ==
[2021-11-24 09:41] VITALS: BP 152/82; PULSE 77; RESP 16; TEMP 97.6
--- NOTE | 2021-11-24 09:44 | P.PAINPG ---
Objective - Vital Signs Vital signs: Intake & Output 11/23/21 11/24/21 11/24/21 18:59 06:59 18:59 Weight 133.81 kg PQRS Measure Charge Sheet Comment: A 66 yr old male, portable oxygen via nasal canula, with a history of severe and chronic low back pain secondary to lumbar degenerative disc diseases and lumbar spondylosis with facet arthropathy presents today for medication refills. Pain level is 8/10 in intensity in the lumbar spine, constant, stabbing/ aching pain localized mostly in the lower back but also in the hips and R knee. Pain is provoked by cold weather and heavy lifting. Pain is alleviated with PT x 3 months in 2019, use of a cane for ambulatory assistance, home guided stretching regimen, heat, ice, medications (Union, Valium, Lidoderm), topicals, repositioning and rest. Patient is currently on [place], Valium, Lidoderm patches Patient denies any side effects of the medication(s), denies excessive drowsiness or sleepiness, denies suicidal ideation and reports that the current pain medication is helping to control the pain and improve activities of daily living. Patient denies any motor or sensory deficits. Patient denies any fever or night sweats, denies any change in the bowel movements or urination. Physical Examination: -Constitutional: Cooperative. Not in acute distress . - Neurologic: Cranial nerve II to XII intact. No focal neurological deficits. - Psychatric: Alert & oriented x 3. Matching mood & appropriate affect. J udgment and insight intact. - Musculoskeletal: Cervical spine: Muscle bulk/ tone/ strength in the bilateral upper extremities normal Vertebral body tenderness to palpation over Spurling test positive Distraction test positive Facet loading test positive Thoracic spine Muscle bulk / tone/ strength in the bilateral paraspinal muscles normal Vertebral body tender to palpation over Facet loading test positive Lumbar spine: Motor bulk/ tone/ strength lower extremities , thigh and legs : 5/5 Deep tendon reflexes : Normal Knee Jerk. Normal Ankle Jerk . Vertebral body tenderness to palpation over L3, L4, L5 Lumbar Facet Loading Test positive Straight Leg Raise: positive at 30 degrees right side/ left side Gaenslen's Test positive Sacral spine : Severe tenderness over the Sacroiliac joint: right side / left side Range of motion: Flexion of the lumbar spine <60 degrees Range of motion: Extension of the lumbar spine <20 degrees Gaenslen's Test positive Mustapha's Test positive Porsche test: positive right side / left side Thigh Thrust Test Sacral Thrust Test Assessment and plan: Chronic low back pain secondary to lumbar degenerative disc disease , lumbar spondylosis with facet arthropathy without myelopathy Chronic and current use of high-risk medication (Opioids). The patient was counseled about risk of opioid use, psychological risk associated with opioids and was orally counseled to not overuse , divert or sell medications. Pt is to store medication in a safe location. The patient is counseled against driving while using narcotic medications and also not to use alcohol or any illicit recreational drugs. Patient verbalized understanding that the lack of compliance will result in failure to renew narcotic prescription(s) as well as possible discharge from the clinic Diagnoses, prognosis and treatment options including but not limited to physical therapy, surgical interventions, interventional therapies and medication management including narcotics and adjuvant medication were discussed. All patient questions answered MAPS reviewed and it was appropriate. Prescription refill for [place] 10/325mg #180 and Valium 5mg #15 w 1 refill I have spent less than 30 minutes on patient care today. Dr Hartley was available by phone for the evaluation of this patient. The time was used to review the medical records including relevant urine studies and Prescription history (MAPs), review of the available imaging, evaluation and examination of the patient, coordination of care with the medical staff and if applicable referring physicians, as well as creation of the medical record - Pain Location Bilateral Lower Back Non-Pharmacological Interventions: Elevation, Heat, Home Exercise, Ice, Inactivity, Position/Reposition, Stretching Pharmacological Interventions: Scheduled Medication, Topical Medication PQRS Narrative: Smoking Status Former smoker Narcotic Agreement Date Signed 09/29/21 Hx Alcohol Use (MH) No Home Medications: Ambulatory Orders Butalb/APAP/Caff 50-325-40Mg [Fioricet 50-325-40] 1 - 2 tab PO Q4HR PRN 06/02/16 Famotidine 20 mg PO BID PRN 06/02/16 SUMAtriptan succinate [Imitrex] 25 mg PO DAILY PRN 06/02/16 Budesonide [Pulmicort Flexhaler] 2 puff INHALATION BID 06/30/16 Ergocalciferol (Vitamin D2) [Vitamin D2] 50,000 unit PO FR 06/30/16 Ketoconazole 2% Shampoo [Nizoral] 1 applic TOPICAL DIRECTED PRN 06/30/16 diphenhydrAMINE [Benadryl] 25 mg PO HS PRN 06/30/16 Melatonin [Melatonin ER] 5 mg PO HS 08/28/18 Umeclidinium [place] [Incruse Ellipta] 1 puff INHALATION DAILY 04/30/19 Albuterol Nebulized [Ventolin Nebulized] 2.5 mg INHALATION BID 01/01/20 Finasteride [Proscar] 5 mg PO DAILY 06/17/20 Loratadine-Pseudoeph 10-240 mg [Claritin-D 24 Hour] 1 tab PO DAILY PRN 06/17/20 Albuterol Sulfate [Albuterol Sulfate Hfa] 2 puff PO Q6H PRN 06/03/21 Fluconazole [Diflucan] 100 mg PO DAILY PRN 06/03/21 Zolpidem [Ambien] 5 mg PO HS PRN 06/03/21 HYDROcodone/APAP 10-325MG [[place] 10-325] 1 tab PO Q4HR PRN 30 Days #180 tab 09/29/21 HYDROcodone/APAP 10-325MG [[place] 10-325] 1 tab PO Q4HR PRN 30 Days #180 tab 09/29/21 diazePAM [Valium] 5 mg PO DAILY PRN 30 Days #15 tab 09/29/21 Controlled Substance Measures - Controlled Substance Measures Is patient prescribed a controlled substance at discharge?: Yes When asked, does pt state using other controlled substances?: Yes If prescribed controlled substance>3 days was MAPS reviewed?: Yes If Rx opioid, was Start Talking consent form obtained?: Yes If opioid is for acute pain is fill amount 7 days or less?: Yes Was information provided regarding opioid addiction?: Yes
== END ==
LOC: PNWHC3 08:59
PROVIDERS: ATTEND Specialist
DX: M51.36 Other intervertebral disc degeneration, lumbar region (principal); M47.816 Spondylosis without myelopathy or radiculopathy, lumbar region; G89.29 Other chronic pain; Z79.891 Long term (current) use of opiate analgesic; Z88.6 Allergy status to analgesic agent; Z91.030 Bee allergy status; Z91.040 Latex allergy status; Z88.5 Allergy status to narcotic agent; Z88.0 Allergy status to penicillin; Z88.2 Allergy status to sulfonamides; Z91.048 Other nonmedicinal substance allergy status; Z88.8 Allergy status to other drugs, medicaments and biological substances; Z87.891 Personal history of nicotine dependence
CPT/HCPCS: 99211

== ENCOUNTER → 2022-01-19 | Outpatient (CLI) | payer MEDICARE, OTHER ==
[2022-01-19 10:08] VITALS: BP 176/81; PULSE 77; RESP 18; TEMP 98.3
--- NOTE | 2022-01-19 15:02 | P.PAINPG ---
PQRS Measure Charge Sheet Comment: A 66 yr old male with a history of severe and chronic low back pain secondary to lumbar degenerative disc diseases and lumbar spondylosis with facet arthropathy presents today for medication refills. Pain level is currently at 7/10 in intensity, constant, generalized in the mid and lower spine, dull/ achy in character w shooting towards the flanks L & R and the BLEs. Pain is provoked by standing/ bending and lifting. Pain is alleviated with medications ([place] 10/325mg #180, Valium 5mg #15), topicals, ice, heat, PT 4 yrs ago, use of a cane for ambulation, home stretching in the morning, repositioning and rest. Patient is currently on [place] 10/325mg #180, Valium 5mg #15 Patient denies any side effects of the medication(s), denies excessive drowsiness or sleepiness, denies suicidal ideation and reports that the current pain medication is helping to control the pain and improve activities of daily living. Patient denies any motor or sensory deficits. Patient denies any fever or night sweats, denies any change in the bowel movements or urination. Physical Examination: -Constitutional: Cooperative. Not in acute distress . - Neurologic: Cranial nerve II to XII intact. No focal neurological deficits. - Psychatric: Alert & oriented x 3. Matching mood & appropriate affect. Judgment and insight intact. - Musculoskeletal: Cervical spine: Muscle bulk/ tone/ strength in the bilateral upper extremities normal Vertebral body tenderness to palpation over Spurling test positive Distraction test positive Facet loading test positive Thoracic spine Muscle bulk / tone/ strength in the bilateral paraspinal muscles normal Vertebral body tender to palpation over Facet loading test positive Lumbar spine: Motor bulk/ tone/ strength lower extremities , thigh and legs : 5/5 Deep tendon reflexes : Normal Knee Jerk. Normal Ankle Jerk . Vertebral body tenderness to palpation over L2, L3, L4, L5 Lumbar Facet Loading Test positive Straight Leg Raise: positive at 30 degrees right side/ left side Gaenslen's Test positive Sacral spine : Severe tenderness over the Sacroiliac joint: right side / left side Range of motion: Flexion of the lumbar spine <60 degrees Range of motion: Extension of the lumbar spine <20 degrees Gaenslen's Test positive Mustapha's Test positive Porsche test: positive right side / left side Thigh Thrust Test Sacral Thrust Test Assessment and plan: Chronic low back pain secondary to lumbar degenerative disc disease , lumbar spondylosis with facet arthropathy without myelopathy Chronic and current use of high-risk medication (Opioids). The patient was counseled about risk of opioid use, psychological risk associated with opioids and was orally counseled to not overuse , divert or sell medications. Pt is to store medication in a safe location. The patient is counseled against driving while using narcotic m edications and also not to use alcohol or any illicit recreational drugs. Patient verbalized understanding that the lack of compliance will result in failure to renew narcotic prescription(s) as well as possible discharge from the clinic Diagnoses, prognosis and treatment options including but not limited to physical therapy, surgical interventions, interventional therapies and medi cation management including narcotics and adjuvant medication were discussed. All patient questions answered MAPS reviewed and it was appropriate. Urine for UDS collected today 01/19/22 Prescription refill for [place] 10/325mg #180, Valium 5mg #15 w 1 RF I have spent less than 30 minutes on patient care today. Dr Hartley was available by phone for the evaluation of this patient. The time was used to review the medical records including relevant urine studies and Prescription history (MAPs), review of the available imaging, evaluation and examination of the patient, coordination of care with the medical staff and if applicable referring physicians, as well as creation of the medical record PQRS Narrative: Smoking Status Former smoker Narcotic Agreement Date Signed 09/29/21 Hx Alcohol Use (MH) No Home Medications: Ambulatory Orders Butalb/APAP/Caff 50-325-40Mg [Fioricet 50-325-40] 1 - 2 tab PO Q4HR PRN 06/02/16 Famotidine 20 mg PO BID PRN 06/02/16 SUMAtriptan succinate [Imitrex] 25 mg PO DAILY PRN 06/02/16 Budesonide [Pulmicort Flexhaler] 2 puff INHALATION BID 06/30/16 Ergocalciferol (Vitamin D2) [Vitamin D2] 50,000 unit PO FR 06/30/16 Ketoconazole 2% Shampoo [Nizoral] 1 applic TOPICAL DIRECTED PRN 06/30/16 diphenhydrAMINE [Benadryl] 25 mg PO HS PRN 06/30/16 Melatonin [Melatonin ER] 5 mg PO HS 08/28/18 Umeclidinium [place] [Incruse Ellipta] 1 puff INHALATION DAILY 04/30/19 Albuterol Nebulized [Ventolin Nebulized] 2.5 mg INHALATION BID 01/01/20 Finasteride [Proscar] 5 mg PO DAILY 06/17/20 Loratadine-Pseudoeph 10-240 mg [Claritin-D 24 Hour] 1 tab PO DAILY PRN 06/17/20 Albuterol Sulfate [Albuterol Sulfate Hfa] 2 puff PO Q6H PRN 06/03/21 Fluconazole [Diflucan] 100 mg PO DAILY PRN 06/03/21 Zolpidem [Ambien] 5 mg PO HS PRN 06/03/21 HYDROcodone/APAP 10-325MG [[place] 10-325] 1 tab PO Q4HR PRN 30 Days #180 tab 11/24/21 HYDROcodone/APAP 10-325MG [[place] 10-325] 1 tab PO Q4HR PRN 30 Days #180 tab 11/10 diazePAM [Valium] 5 mg PO DAILY PRN 30 Days #15 tab 11/24/21 Arformoterol Tartrate [Brovana] 15 mcg INHALATION RT-BID 01/19/22 Budesonide [Pulmicort] 1 mg INHALATION BID 01/19/22 Controlled Substance Measures - Controlled Substance Measures Is patient prescribed a controlled substance at discharge?: Yes When asked, does pt state using other controlled substances?: No If prescribed controlled substance>3 days was MAPS reviewed?: Yes If Rx opioid, was Start Talking consent form obtained?: Yes Was information provided regarding opioid addiction?: Yes
== END ==
LOC: PNWHC3 08:45
PROVIDERS: ATTEND Specialist
DX: M51.36 Other intervertebral disc degeneration, lumbar region (principal); Z51.81 Encounter for therapeutic drug level monitoring; M47.816 Spondylosis without myelopathy or radiculopathy, lumbar region; G89.29 Other chronic pain; Z79.891 Long term (current) use of opiate analgesic; Z87.891 Personal history of nicotine dependence; Z88.6 Allergy status to analgesic agent; Z88.5 Allergy status to narcotic agent; Z88.0 Allergy status to penicillin; Z88.2 Allergy status to sulfonamides; Z88.8 Allergy status to other drugs, medicaments and biological substances; Z91.041 Radiographic dye allergy status; Z91.040 Latex allergy status
CPT/HCPCS: 80307; G0482; G0463; 99212

== ENCOUNTER → 2022-03-16 | Outpatient (CLI) | payer MEDICARE, OTHER ==
[2022-03-16 09:11] VITALS: BP 165/75; PULSE 89; RESP 14
--- NOTE | 2022-03-16 14:25 | P.PAINPG ---
PQRS Measure Charge Sheet Comment: A 66 yr old male with a history of severe and chronic low back pain secondary to lumbar degenerative disc diseases and lumbar spondylosis with facet arthropathy without myelopathy presents today for medication refills. Pain level is currently at 8/10 in intensity, constant, generalized, dull/ achy in mas[place] cter w shooting towards the BLEs. Pain is provoked by bending/ twisting/ being sedentary for periods of 1 1/2 hrs or more. Pain is alleviated with PT in the past, chiropractic treatments in the past, massage therapy in the past, heat, ice, home exercise as tolerated, repositioning and rest. Patient is currently on [place] 10/325mg #180, Valium 5mg #15 Patient denies any side effects of the medication(s), denies excessive drowsiness or sleepiness, denies suicidal ideation and reports that the current pain medication is helping to control the pain and improve activities of daily living. Patient denies any motor or sensory deficits. Patient denies any fever or night sweats, denies any change in the bowel movements or urination. Physical Examination: -Constitutional: Cooperative. Not in acute distress . - Neurologic: Cranial nerve II to XII intact. No focal neurological deficits. - Psychatric: Alert & oriented x 3. Matching mood & appropriate affect. Judgment and insight intact. - Musculoskeletal: Cervical spine: Muscle bulk/ tone/ strength in the bilateral upper extremities normal Vertebral body tenderness to palpation over Spurling test positive Distraction test positive Facet loading test positive Thoracic spine Muscle bulk / tone/ strength in the bilateral paraspinal muscles normal Vertebral body tender to palpation over T8 Facet loading test positive Lumbar spine: Motor bulk/ tone/ strength lower extremities , thigh and legs : 5/5 Deep tendon reflexes : Normal Knee Jerk. Normal Ankle Jerk . Vertebral body tenderness to palpation over L3, L4, L5 Lumbar Facet Loading Test positive Straight Leg Raise: positive at 30 degrees right side/ left side Gaenslen's Test positive Sacral spine : Severe tenderness over the Sacroiliac joint: right side / left side Range of motion: Flexion of the lumbar spine <60 degrees Range of motion: Extension of the lumbar spine <20 degrees Gaenslen's Test positive Mustapha's Test positive Porsche test: positive right side / left side Thigh Thrust Test Sacral Thrust Test Assessment and plan: Chronic low back pain secondary to lumbar degenerative disc disease , lumbar spondylosis with facet arthropathy without myelopathy Chronic and current use of high-risk medication (Opioids). The patient was counseled about risk of opioid use, psychological risk associated with opioids and was orally counseled to not overuse , divert or sell medications. Pt is to store medication in a safe location. The patient is counseled against driving while using narcotic medications and also not to use alcohol or any illicit recreational drugs. Patient verbalized understanding that the lack of compliance will result in failure to renew narcotic prescription(s) as well as possible discharge from the clinic Diagnoses, prognosis and treatment options including but not limited to physical therapy, surgical interventions, interventional therapies and medication management including narcotics and adjuvant medication were discussed. All patient questions answered MAPS reviewed and it was appropriate. Prescription refill for [place] 10/325mg #180, Valium 5mg #10 w 1 RF I have spent less than 30 minutes on patient care today. Dr Hartley was available by phone for the evaluation of this patient. The time was used to review the medical records including relevant urine studies and Prescription history (MAPs), review of the available imaging, evaluation and examination of the patient, coordination of care with the medical staff and if applicable [facility] physicians, as well as creation of the medical record - Pain Location Generalized Non-Pharmacological Interventions: Chiropractic Treatment, Heat, Home Exercise, Ice, Inactivity, Massage, Physical Therapy, Position/Reposition, Sitting, Stretching Pharmacological Interventions: PRN Medication, Topical Medication PQRS Narrative: Smoking Status Former smoker Narcotic Agreement Date Signed 09/29/21 Hx Alcohol Use (MH) No Home Medications: Ambulatory Orders Butalb/APAP/Caff 50-325-40Mg [Fioricet 50-325-40] 1 - 2 tab PO Q4HR PRN 06/02/16 Famotidine 20 mg PO BID PRN 06/02/16 SUMAtriptan succinate [Imitrex] 25 mg PO DAILY PRN 06/02/16 Budesonide [Pulmicort Flexhaler] 2 puff INHALATION BID 06/30/16 Ergocalciferol (Vitamin D2) [Vitamin D2] 50,000 unit PO FR 06/30/16 Ketoconazole 2% Shampoo [Nizoral] 1 applic TOPICAL DIRECTED PRN 06/30/16 diphenhydrAMINE [Benadryl] 25 mg PO HS PRN 06/30/16 Melatonin [Melatonin ER] 5 mg PO HS 08/28/18 Umeclidinium [place] [Incruse Ellipta] 1 puff INHALATION DAILY 04/30/19 Albuterol Nebulized [Ventolin Nebulized] 2.5 mg INHALATION BID 01/01/20 Finasteride [Proscar] 5 mg PO DAILY 06/17/20 Loratadine-Pseudoeph 10-240 mg [Claritin-D 24 Hour] 1 tab PO DAILY PRN 06/17/20 Albuterol Sulfate [Albuterol Sulfate Hfa] 2 puff PO Q6H PRN 06/03/21 Fluconazole [Diflucan] 100 mg PO DAILY PRN 06/03/21 Zolpidem [Ambien] 5 mg PO HS PRN 06/03/21 Arformoterol Tartrate [Brovana] 15 mcg INHALATION RT-BID 01/19/22 Budesonide [Pulmicort] 1 mg INHALATION BID 01/19/22 HYDROcodone/APAP 10-325MG [[place] 10-325] 1 tab PO Q4HR PRN 30 Days #180 tab 01/19/22 HYDROcodone/APAP 10-325MG [[place] 10-325] 1 tab PO Q4HR PRN 30 Days #180 tab 01/19/22 diazePAM [Valium] 5 mg PO DAILY PRN 30 Days #15 tab 01/19/22 Controlled Substance Measures - Controlled Substance Measures Is patient prescribed a controlled substance at discharge?: Yes When asked, does pt state using other controlled substances?: Yes If prescribed controlled substance>3 days was MAPS reviewed?: Yes If Rx opioid, was Start Talking consent form obtained?: Yes Was information provided regarding opioid addiction?: Yes
== END ==
LOC: PNWHC3 08:47
PROVIDERS: ATTEND Specialist
DX: M47.816 Spondylosis without myelopathy or radiculopathy, lumbar region (principal); M51.36 Other intervertebral disc degeneration, lumbar region; G89.29 Other chronic pain; Z79.891 Long term (current) use of opiate analgesic; Z87.891 Personal history of nicotine dependence; Z88.6 Allergy status to analgesic agent; Z91.030 Bee allergy status; Z88.8 Allergy status to other drugs, medicaments and biological substances; Z91.040 Latex allergy status; Z88.5 Allergy status to narcotic agent; Z88.0 Allergy status to penicillin; Z88.2 Allergy status to sulfonamides
CPT/HCPCS: 99211

== ENCOUNTER → 2022-05-11 | Outpatient (CLI) | payer MEDICARE, OTHER ==
[2022-05-11 10:03] VITALS: BP 151/84; PULSE 80; RESP 16; TEMP 97.8
--- NOTE | 2022-05-11 14:24 | P.PAINPG ---
PQRS Measure Charge Sheet Comment: A 66 yr old male with a history of severe and chronic low back pain secondary to lumbar DDD and spondylosis with facet arthropathy without myelopathy presents today for medication refills. Pain level is currently at 8 /10 in intensity, constant, localized in the lumbar spine and knees, sharp in character without radiation. Pain is provoked by over activity. Pain is alleviated with PT x 3 mo in 2019, medications , massage therapy semi weekly years ago, chiropractic treatments years ago, heat, ice, topicals, aquatherapy years ago, reclining w stretching, use of a TENS unit, repositioning and rest. Interventional pain procedures completed include LESIs Patient is currently on [place] 10/325mg #180, Valium 5mg #15mg Patient denies any side effects of the medication(s), denies excessive drowsiness or sleepiness, denies suicidal ideation and reports that the current pain medication is helping to control the pain and improve activities of daily living. Patient denies any motor or sensory deficits. Patient denies any fever or night sweats, denies any change in the bowel movements or urination. Physical Examination: -Constitutional: Cooperative. Not in acute distress . - Neurologic: Cranial nerve II to XII intact. No focal neurological deficits. - Psychatric: Alert & oriented x 3. Matching mood & appropriate affect. Judgment and insight intact. - Musculoskeletal: Cervical spine: Muscle bulk/ tone/ strength in the bilateral upper extremities normal Vertebral body tenderness to palpation over Spurling test positive Distraction test positive Facet loading test positive Thoracic spine Muscle bulk / tone/ strength in the bilateral paraspinal muscles normal Vertebral body tender to palpation over Facet loading test positive Lumbar spine: Motor bulk/ tone/ strength lower extremities , thigh and legs : 5/5 Deep tendon reflexes : Normal Knee Jerk. Normal Ankle Jerk . Vertebral body tenderness to palpation over Lumbar Facet Loading Test positive Straight Leg Raise: positive at 30 degrees right side/ left side Gaenslen's Test positive Sacral spine : Severe tenderness over the Sacroiliac joint: right side / left side Range of motion: Flexion of the lumbar spine <60 degrees Range of motion: Extension of the lumbar spine <20 degrees Gaenslen's Test positive Porsche test: positive right side / left side Thigh Thrust Test Sacral Thrust Test Assessment and plan: Chronic low back pain secondary to lumbar degenerative disc disease, spondylosis with facet arthropathy without myelopathy Chronic and current use of high-risk medication (Opioids). The patient was counseled about risk of opioid use, psychological risk associated with opioids and was orally counseled to not overuse , divert or sell medications. Pt is to store medication in a safe location. The patient is counseled against driving while using narcotic medications and also not to use alcohol or any illicit recreational drugs. Patient verbalized understanding that the lack of compliance will result in failure to renew narcotic prescription(s) as well as possible discharge from the clinic Diagnoses, prognosis and treatment options including but not limited to physical therapy, surgical interventions, interventional therapies and medication management including narcotics and adjuvant medication were discussed. All patient questions answered MAPS reviewed and it was appropriate. UDS from 03/21/22 reviewed and consistent Prescription refill for [place] 10/325mg #180, Feajvo1ap #15mg, Lidoderm w 1 RF I have spent less than 30 minutes on patient care today. Dr Hartley was available by phone for the evaluation of this patient. The time was used to review the medical records including relevant urine studies and Prescription history (MAPs), review of the available imaging, evaluation and examination of the patient, coordination of care with the medical staff and if applicable referring physicians, as well as creation of the medical record PQRS Narrative: Smoking Status Former smoker Narcotic Agreement Date Signed 09/29/21 Hx Alcohol Use (MH) No Home Medications: Ambulatory Orders Butalb/APAP/Caff 50-325-40Mg [Fioricet 50-325-40] 1 - 2 tab PO Q4HR PRN 06/02/16 Famotidine 20 mg PO BID PRN 06/02/16 SUMAtriptan succinate [Imitrex] 25 mg PO DAILY PRN 06/02/16 Budesonide [Pulmicort Flexhaler] 2 puff INHALATION BID 06/30/16 Ergocalciferol (Vitamin D2) [Vitamin D2] 50,000 unit PO FR 06/30/16 Ketoconazole 2% Shampoo [Nizoral] 1 applic TOPICAL DIRECTED PRN 06/30/16 diphenhydrAMINE [Benadryl] 25 mg PO HS PRN 06/30/16 Melatonin [Melatonin ER] 5 mg PO HS 08/28/18 Umeclidinium [place] [Incruse Ellipta] 1 puff INHALATION DAILY 04/30/19 Albuterol Nebulized [Ventolin Nebulized] 2.5 mg INHALATION BID 01/01/20 Finasteride [Proscar] 5 mg PO DAILY 06/17/20 Loratadine-Pseudoeph 10-240 mg [Claritin-D 24 Hour] 1 tab PO DAILY PRN 06/17/20 Albuterol Sulfate [Albuterol Sulfate Hfa] 2 puff PO Q6H PRN 06/03/21 Fluconazole [Diflucan] 100 mg PO DAILY PRN 06/03/21 Zolpidem [Ambien] 5 mg PO HS PRN 06/03/21 Arformoterol Tartrate [Brovana] 15 mcg INHALATION RT-BID 01/19/22 Budesonide [Pulmicort] 1 mg INHALATION BID 01/19/22 HYDROcodone/APAP 10-325MG [[place] 10-325] 1 tab PO Q4HR PRN 30 Days #180 tab 05/11/22 HYDROcodone/APAP 10-325MG [[place] 10-325] 1 tab PO Q4HR PRN 30 Days #180 tab 05/11/22 Lidocaine 5% Patch [Lidoderm] 1 each TP QAM 30 Days #30 patch 05/11/22 diazePAM [Valium] 5 mg PO DAILY PRN 30 Days #15 tab 05/11/22 Controlled Substance Measures - Controlled Substance Measures Is patient prescribed a controlled substance at discharge?: Yes When asked, does pt state using other controlled substances?: No If prescribed controlled substance>3 days was MAPS reviewed?: Yes If Rx opioid, was Start Talking consent form obtained?: Yes Was information provided regarding opioid addiction?: Yes
== END ==
LOC: PNWHC3 09:18
PROVIDERS: ATTEND Specialist
DX: M47.816 Spondylosis without myelopathy or radiculopathy, lumbar region (principal); M51.36 Other intervertebral disc degeneration, lumbar region; G89.29 Other chronic pain; Z87.891 Personal history of nicotine dependence; Z88.6 Allergy status to analgesic agent; Z91.030 Bee allergy status; Z91.041 Radiographic dye allergy status; Z88.5 Allergy status to narcotic agent; Z91.040 Latex allergy status; Z91.048 Other nonmedicinal substance allergy status; Z88.0 Allergy status to penicillin; Z88.2 Allergy status to sulfonamides; Z88.8 Allergy status to other drugs, medicaments and biological substances; Z79.891 Long term (current) use of opiate analgesic
CPT/HCPCS: 99211

== ENCOUNTER → 2022-08-31 | Outpatient (CLI) | payer MEDICARE, OTHER ==
[2022-08-31 11:59] VITALS: BP 141/69; PULSE 86; RESP 18; TEMP 97.4
--- NOTE | 2022-08-31 14:43 | P.PAINPG ---
PQRS Measure Charge Sheet Comment: A 67 yr old male with a history of severe and chronic LBP x years secondary to lumbar DDD and spondylosis with facet arthropathy without myelopathy presents today for medication refills. Pain level is provoked at 7 /10 in intensity, constant, localized in the lumbar spine, sore, achy in character w shooting towards the BLEs. Pain is provoked by over activity or walking for periods of 20 min or more. Pain is alleviated with PT in 2019, chiropractic treatments years ago which were ineffective, heat, ice, medications, topical, reclining, use of a cane for ambulatory assistance, repositioning and rest. Interventional pain procedures completed include DENIES Patient is currently on [place] 10/325mg #180, Valium #15, Lidoderm 5% Patient denies any side effects of the medication(s), denies excessive drowsiness or sleepiness, denies suicidal ideation and reports that the current pain medication is helping to control the pain and improve activities of daily living. Patient denies any motor or sensory deficits. Patient denies any fever or night sweats, denies any change in the bowel movements or urination. Physical Examination: -Constitutional: Cooperative. Not in acute distress . - Neurologic: Cranial nerve II to XII intact. No focal neurological deficits. - Psychatric: Alert & oriented x 3. Matching mood & appropriate affect. Judgment and insight intact. - Musculoskeletal: Cervical spine: Muscle bulk/ tone/ strength in the bilateral upper extremities normal Vertebral body tenderness to palpation over Spurling test positive Distraction test positive Facet loading test positive TTP Thoracic spine Muscle bulk / tone/ strength in the bilateral paraspinal muscles normal Vertebral body tender to palpation over Facet loading test positive TTP Lumbar spine: Motor bulk/ tone/ strength lower extremities , thigh and legs : 5/5 Deep tendon reflexes : Normal Knee Jerk. Normal Ankle Jerk . Vertebral body tenderness to palpation over L3, L4, L5 Lumbar Facet Loading Test positive Straight Leg Raise: positive at 30 degrees right side/ left side Gaenslen's Test positive Sacral spine : Severe tenderness over the Sacroiliac joint: right side / left side Range of motion: Flexion of the lumbar spine <60 degrees Range of motion: Extension of the lumbar spine <20 degrees Gaenslen's Test positive right side / left side Porsche test: positive right side / left side Thigh Thrust Test positive right side / left side Sacral Thrust Test positive right side / left side Assessment and plan: Chronic LBP secondary to lumbar DDD, spondylosis with facet arthropathy without myelopathy Chronic and current use of high-risk medication (Opioids). The patient was counseled about risk of opioid use, psychological risk associated with opioids and was orally counseled to not overuse , divert or sell medications. Pt is to store medication in a safe location. The patient is counseled against driving while using narcotic medications and also not to use alcohol or any illicit recreational drugs. Patient verbalized understanding that the lack of compliance will result in failure to renew narcotic prescription(s) as well as possible discharge from the clinic Diagnoses, prognosis and treatment options including but not limited to physical therapy, surgical interventions, interventional therapies and medication management including narcotics and adjuvant medication were discussed. All patient questions answered MAPS reviewed and it was appropriate. UDS from 07/06/22 reviewed and consistent. Prescription refill for [place] 10/325mg #180, Valium #15, Lidoderm 5% #30 w 1 RF I have spent less than 30 minutes on patient care today. Dr Hartley was available by phone for the evaluation of this patient. The time was used to review the medical records including relevant urine studies and Prescription history (MAPs), review of the available imaging, evaluation and examination of the patient, coordination of care with the medical staff and if applicable referring physicians, as well as creation of the medical record PQRS Narrative: Smoking Status Former smoker Narcotic Agreement Date Signed 09/29/21 Hx Alcohol Use (MH) No Home Medications: Ambulatory Orders Butalb/APAP/Caff 50-325-40Mg [Fioricet 50-325-40] 1 - 2 tab PO Q4HR PRN 06/02/16 Famotidine 20 mg PO BID PRN 06/02/16 SUMAtriptan succinate [Imitrex] 25 mg PO DAILY PRN 06/02/16 Budesonide [Pulmicort Flexhaler] 2 puff INHALATION BID 06/30/16 Ergocalciferol (Vitamin D2) [Vitamin D2] 50,000 unit PO FR 06/30/16 Ketoconazole 2% Shampoo [Nizoral] 1 applic TOPICAL DIRECTED PRN 06/30/16 diphenhydrAMINE [Benadryl] 25 mg PO HS PRN 06/30/16 Melatonin [Melatonin ER] 5 mg PO HS 08/28/18 Umeclidinium [place] [Incruse Ellipta] 1 puff INHALATION DAILY 04/30/19 Albuterol Nebulized [Ventolin Nebulized] 2.5 mg INHALATION BID 01/01/20 Finasteride [Proscar] 5 mg PO DAILY 06/17/20 Loratadine-Pseudoeph 10-240 mg [Claritin-D 24 Hour] 1 tab PO DAILY PRN 06/17/20 Albuterol Sulfate [Albuterol Sulfate Hfa] 2 puff PO Q6H PRN 06/03/21 Fluconazole [Diflucan] 100 mg PO DAILY PRN 06/03/21 Zolpidem [Ambien] 5 mg PO HS PRN 06/03/21 Arformoterol Tartrate [Brovana] 15 mcg INHALATION RT-BID 01/19/22 Budesonide [Pulmicort] 1 mg INHALATION BID 01/19/22 HYDROcodone/APAP 10-325MG [[place] 10-325] 1 tab PO Q4HR PRN 30 Days #180 tab 07/25/22 HYDROcodone/APAP 10-325MG [[place] 10-325] 1 tab PO Q4HR PRN 30 Days #180 tab 07/25/22 HYDROcodone/APAP 10-325MG [[place] 10-325] 1 tab PO Q4HR PRN 24 Days #138 tab 08/31/22 HYDROcodone/APAP 10-325MG [[place] 10-325] 1 tab PO Q4HR PRN 30 Days #180 tab 08/31/22 HYDROcodone/APAP 10-325MG [[place] 10-325] 1 tab PO Q4HR PRN 6 Days #42 tab 08/31/22 Lidocaine 5% Patch [Lidoderm 5% Patch] 1 each TP QAM 30 Days #30 patch 08/31/22 diazePAM [Valium] 5 mg PO DAILY PRN 30 Days #15 tab 08/31/22 Controlled Substance Measures - Controlled Substance Measures Is patient prescribed a controlled substance at discharge?: Yes
== END ==
LOC: PNWHC3 09:14
PROVIDERS: ATTEND Specialist
DX: M51.36 Other intervertebral disc degeneration, lumbar region (principal); M47.816 Spondylosis without myelopathy or radiculopathy, lumbar region; G89.29 Other chronic pain; Z79.891 Long term (current) use of opiate analgesic; Z87.891 Personal history of nicotine dependence; Z88.8 Allergy status to other drugs, medicaments and biological substances; Z88.6 Allergy status to analgesic agent; Z88.1 Allergy status to other antibiotic agents; Z88.5 Allergy status to narcotic agent; Z91.040 Latex allergy status; Z88.0 Allergy status to penicillin; Z91.041 Radiographic dye allergy status; Z91.048 Other nonmedicinal substance allergy status
CPT/HCPCS: 99211

== ENCOUNTER → 2022-10-26 | Outpatient (CLI) | payer MEDICARE, OTHER ==
[2022-10-26 10:05] VITALS: BP 165/88; PULSE 84; RESP 16; TEMP 97.5
--- NOTE | 2022-10-26 14:45 | P.PAINPG ---
PQRS Measure Charge Sheet Comment: A 67 yr old male with a history of severe and chronic LBP x years secondary to lumbar DDD and spondylosis with facet arthropathy without myelopathy presents today for medication refills. Pain level is provoked at 7 /10 in intensity, constant, localized in the lumbar spine, dull, achy in character w shooting towards the R knee and R ankle. Pain is provoked by over activity or walking for periods of 20 min or more. Pain is alleviated with PT in 2019, home guided exercises since 2019, chiropractic treatments years ago which were ineffective, heat, ice, medications, topical, reclining, use of a cane for ambulatory assistance, repositioning and rest. Interventional pain procedures completed include DENIES Patient is currently on [place] 10/325mg #180, Valium #15, Lidoderm 5% Patient denies any side effects of the medication(s), denies excessive drowsiness or sleepiness, denies suicidal ideation and reports that the current pain medication is helping to control the pain and improve activities of daily living. Patient denies any motor or sensory deficits. Patient denies any fever or night sweats, denies any change in the bowel movements or urination. Physical Examination: -Constitutional: Cooperative. Not in acute distress . - Neurologic: Cranial nerve II to XII intact. No focal neurological de ficits. - Psychatric: Alert & oriented x 3. Matching mood & appropriate affect. Judgment and insight intact. - Musculoskeletal: Cervical spine: Muscle bulk/ tone/ strength in the bilateral upper extremities normal Vertebral body tenderness to palpation over Spurling test positive Distraction test positive Facet loading test positive TTP Thoracic spine Muscle bulk / tone/ strength in the bilateral paraspinal muscles normal Vertebral body tender to palpation over Facet loading test positive TTP Lumbar spine: Motor bulk/ tone/ strength lower extremities , thigh and legs : 5/5 Deep tendon reflexes : Normal Knee Jerk. Normal Ankle Jerk . Vertebral body tenderness to palpation over L3, L4, L5 Lumbar Facet Loading Test positive Straight Leg Raise: positive at 30 degrees right side/ left side Gaenslen's Test positive Sacral spine : Severe tenderness over the Sacroiliac joint: right side / left side Range of motion: Flexion of the lumbar spine <60 degrees Range of motion: Extension of the lumbar spine <20 degrees Gaenslen's Test positive right side / left side Porsche test: positive right side / left side Thigh Thrust Test positive right side / left side Sacral Thrust Test positive right side / left side Assessment and plan: Chronic LBP secondary to lumbar DDD, spondylosis with facet arthropathy without myelopathy Chronic and current use of high-risk medication (Opioids). The patient was counseled about risk of opioid use, psychological risk associated with opioids and was orally counseled to not overuse , divert or sell medications. Pt is to store medication in a safe location. The patient is counseled against driving while using narcotic medications and also not to use alcohol or any illicit recreational drugs. Patient verbalized understanding that the lack of compliance will result in failure to renew narcotic prescription(s) as well as possible discharge from the clinic Diagnoses, prognosis and treatment options including but not limited to physical therapy, surgical interventions, interventional therapies and medication management including narcotics and adjuvant medication were discussed. All patient questions answered MAPS reviewed and it was appropriate. UDS from 07/06/22 reviewed and consistent. Prescription refill for [place] 10/325mg #180, Valium #15, Lidoderm 5% #30 w 1 RF I have spent less than 30 minutes on patient care today. Dr Hartley was available by phone for the evaluation of this patient. The time was used to review the medical records including relevant urine studies and Prescription history (MAPs), review of the available imaging, evaluation and examination of the patient, coordination of care with the medical staff and if applicable referring physicians, as well as creation of the medical record PQRS Narrative: Smoking Status Former smoker Narcotic Agreement Date Signed 09/29/21 Hx Alcohol Use (MH) No Home Medications: Ambulatory Orders Butalb/APAP/Caff 50-325-40Mg [Fioricet 50-325-40] 1 - 2 tab PO Q4HR PRN 06/02/16 Famotidine 20 mg PO BID PRN 06/02/16 SUMAtriptan succinate [Imitrex] 25 mg PO DAILY PRN 06/02/16 Budesonide [Pulmicort Flexhaler] 2 puff INHALATION BID 06/30/16 Ergocalciferol (Vitamin D2) [Vitamin D2] 50,000 unit PO FR 06/30/16 Ketoconazole 2% Shampoo [Nizoral] 1 applic TOPICAL DIRECTED PRN 06/30/16 diphenhydrAMINE [Benadryl] 25 mg PO HS PRN 06/30/16 Melatonin [Melatonin ER] 5 mg PO HS 08/28/18 Umeclidinium [place] [Incruse Ellipta] 1 puff INHALATION DAILY 04/30/19 Albuterol Nebulized [Ventolin Nebulized] 2.5 mg INHALATION BID 01/01/20 Finasteride [Proscar] 5 mg PO DAILY 06/17/20 Loratadine-Pseudoeph 10-240 mg [Claritin-D 24 Hour] 1 tab PO DAILY PRN 06/17/20 Albuterol Sulfate [Albuterol Sulfate Hfa] 2 puff PO Q6H PRN 06/03/21 Fluconazole [Diflucan] 100 mg PO DAILY PRN 06/03/21 Zolpidem [Ambien] 5 mg PO HS PRN 06/03/21 Arformoterol Tartrate [Brovana] 15 mcg INHALATION RT-BID 01/19/22 Budesonide [Pulmicort] 1 mg INHALATION BID 01/19/22 HYDROcodone/APAP 10-325MG [[place] 10-325] 1 tab PO Q4HR PRN 30 Days #180 tab 07/25/22 HYDROcodone/APAP 10-325MG [[place] 10-325] 1 tab PO Q4HR PRN 24 Days #138 tab 10/26/22 HYDROcodone/APAP 10-325MG [[place] 10-325] 1 tab PO Q4HR PRN 30 Days #180 tab 10/26/22 Lidocaine 5% Patch [Lidoderm 5% Patch] 1 each TP QAM 30 Days #30 patch 10/26/22 diazePAM [Valium] 5 mg PO DAILY PRN 30 Days #15 tab 10/26/22 Controlled Substance Measures - Controlled Substance Measures Is patient prescribed a controlled substance at discharge?: Yes When asked, does pt state using other controlled substances?: Yes If prescribed controlled substance>3 days was MAPS reviewed?: Yes
== END ==
LOC: PNWHC3 09:27
PROVIDERS: ATTEND Specialist
DX: M51.36 Other intervertebral disc degeneration, lumbar region (principal); G89.29 Other chronic pain; M47.816 Spondylosis without myelopathy or radiculopathy, lumbar region; Z79.891 Long term (current) use of opiate analgesic; Z88.6 Allergy status to analgesic agent; Z91.02 Food additives allergy status; Z88.5 Allergy status to narcotic agent; Z88.0 Allergy status to penicillin; Z88.2 Allergy status to sulfonamides; Z88.1 Allergy status to other antibiotic agents; Z91.018 Allergy to other foods; Z87.891 Personal history of nicotine dependence
CPT/HCPCS: 99211

== ENCOUNTER → 2022-12-21 | Outpatient (CLI) | payer MEDICARE, OTHER ==
[2022-12-21 09:43] VITALS: BP 174/71; PULSE 74; RESP 16; TEMP 98.7
--- NOTE | 2022-12-21 14:21 | P.PAINPG ---
PQRS Measure Charge Sheet Comment: A 67 yr old male with a history of severe and chronic LBP x years secondary to lumbar DDD and spondylosis with facet arthropathy without myelopathy presents today for medication refills. Pain level is provoked at 7 /10 in intensity, constant, localized in the lumbar spine, dull, achy in character w shooting towards the R knee and R ankle. Pain is provoked by over activity or walking for periods of 20 min or more. Pain is alleviated with PT in 2019, home guided exercises since 2019, chiropractic treatments years ago which were ineffective, heat, ice, medications, topical, reclining, use of a cane for ambulatory assistance, repositioning and rest. Interventional pain procedures completed include DENIES Patient is currently on [place] 10/325mg #180, Valium #15, Lidoderm 5% Patient denies any side effects of the medication(s), denies excessive drowsiness or sleepiness, denies suicidal ideation and reports that the current pain medication is helping to control the pain and improve activities of daily living. Patient denies any motor or sensory deficits. Patient denies any fever or night sweats, denies any change in the bowel movements or urination. Physical Examination: -Constitutional: Cooperative. Not in acute distress . - Neurologic: Cranial nerve II to XII intact. No focal neurological de ficits. - Psychatric: Alert & oriented x 3. Matching mood & appropriate affect. Judgment and insight intact. - Musculoskeletal: Cervical spine: Muscle bulk/ tone/ strength in the bilateral upper extremities normal Vertebral body tenderness to palpation over Spurling test positive Distraction test positive Facet loading test positive TTP Thoracic spine Muscle bulk / tone/ strength in the bilateral paraspinal muscles normal Vertebral body tender to palpation over Facet loading test positive TTP Lumbar spine: Motor bulk/ tone/ strength lower extremities , thigh and legs : 5/5 Deep tendon reflexes : Normal Knee Jerk. Normal Ankle Jerk . Vertebral body tenderness to palpation over L3, L4, L5 Lumbar Facet Loading Test positive Straight Leg Raise: positive at 30 degrees right side/ left side Gaenslen's Test positive Sacral spine : Severe tenderness over the Sacroiliac joint: right side / left side Range of motion: Flexion of the lumbar spine <60 degrees Range of motion: Extension of the lumbar spine <20 degrees Gaenslen's Test positive right side / left side Porsche test: positive right side / left side Thigh Thrust Test positive right side / left side Sacral Thrust Test positive right side / left side Assessment and plan: Chronic LBP secondary to lumbar DDD, spondylosis with facet arthropathy without myelopathy Chronic and current use of high-risk medication (Opioids). The patient was counseled about risk of opioid use, psychological risk associated with opioids and was orally counseled to not overuse , divert or sell medications. Pt is to store medication in a safe location. The patient is counseled against driving while using narcotic medications and also not to use alcohol or any illicit recreational drugs. Patient verbalized understanding that the lack of compliance will result in failure to renew narcotic prescription(s) as well as possible discharge from the clinic Diagnoses, prognosis and treatment options including but not limited to physical therapy, surgical interventions, interventional therapies and medication management including narcotics and adjuvant medication were discussed. All patient questions answered MAPS reviewed and it was appropriate. UDS from 07/06/22 reviewed and consistent. Prescription refill for [place] 10/325mg #180, Valium #15, Lidoderm 5% #30 w 1 RF I have spent less than 30 minutes on patient care today. Dr Hartley was available by phone for the evaluation of this patient. The time was used to review the medical records including relevant urine studies and Prescription history (MAPs), review of the available imaging, evaluation and examination of the patient, coordination of care with the medical staff and if applicable referring physicians, as well as creation of the medical record / PQRS Narrative: Smoking Status Former smoker Narcotic Agreement Date Signed 09/29/21 Hx Alcohol Use (MH) No Home Medications: Ambulatory Orders Butalb/APAP/Caff 50-325-40Mg [Fioricet 50-325-40] 1 - 2 tab PO Q4HR PRN 06/02/16 Famotidine 20 mg PO BID PRN 06/02/16 SUMAtriptan succinate [Imitrex] 25 mg PO DAILY PRN 06/02/16 Budesonide [Pulmicort Flexhaler] 2 puff INHALATION BID 06/30/16 Ergocalciferol (Vitamin D2) [Vitamin D2] 50,000 unit PO FR 06/30/16 Ketoconazole 2% Shampoo [Nizoral] 1 applic TOPICAL DIRECTED PRN 06/30/16 diphenhydrAMINE [Benadryl] 25 mg PO HS PRN 06/30/16 Melatonin [Melatonin ER] 5 mg PO HS 08/28/18 Umeclidinium [place] [Incruse Ellipta] 1 puff INHALATION DAILY 04/30/19 Albuterol Nebulized [Ventolin Nebulized] 2.5 mg INHALATION BID 01/01/20 Finasteride [Proscar] 5 mg PO DAILY 06/17/20 Loratadine-Pseudoeph 10-240 mg [Claritin-D 24 Hour] 1 tab PO DAILY PRN 06/17/20 Albuterol Sulfate [Albuterol Sulfate Hfa] 2 puff PO Q6H PRN 06/03/21 Fluconazole [Diflucan] 100 mg PO DAILY PRN 06/03/21 Zolpidem [Ambien] 5 mg PO HS PRN 06/03/21 Arformoterol Tartrate [Brovana] 15 mcg INHALATION RT-BID 01/19/22 Budesonide [Pulmicort] 1 mg INHALATION BID 01/19/22 HYDROcodone/APAP 10-325MG [[place] 10-325] 1 tab PO Q4HR PRN 30 Days #180 tab 07/25/22 HYDROcodone/APAP 10-325MG [[place] 10-325] 1 tab PO Q4HR PRN 24 Days #138 tab 10/26/22 HYDROcodone/APAP 10-325MG [[place] 10-325] 1 tab PO Q4HR PRN 30 Days #180 tab 10/26/22 Lidocaine 5% Patch [Lidoderm 5% Patch] 1 each TP QAM 30 Days #30 patch 10/26/22 diazePAM [Valium] 5 mg PO DAILY PRN 30 Days #15 tab 10/26/22 Controlled Substance Measures - Controlled Substance Measures Is patient prescribed a controlled substance at discharge?: Yes When asked, does pt state using other controlled substances?: Yes If prescribed controlled substance>3 days was MAPS reviewed?: Yes
== END ==
LOC: PNWHC3 09:11
PROVIDERS: ATTEND Specialist
DX: M51.36 Other intervertebral disc degeneration, lumbar region (principal); M47.816 Spondylosis without myelopathy or radiculopathy, lumbar region; G89.29 Other chronic pain; Z79.891 Long term (current) use of opiate analgesic; Z88.1 Allergy status to other antibiotic agents; Z91.040 Latex allergy status; Z88.0 Allergy status to penicillin; Z88.5 Allergy status to narcotic agent; Z88.2 Allergy status to sulfonamides; Z88.6 Allergy status to analgesic agent; Z91.041 Radiographic dye allergy status; Z91.030 Bee allergy status; Z88.8 Allergy status to other drugs, medicaments and biological substances; Z87.891 Personal history of nicotine dependence
CPT/HCPCS: 99211

== ENCOUNTER → 2023-04-26 | Outpatient (CLI) | payer MEDICARE ==
--- NOTE | 2023-04-26 09:34 | P.PAINPG ---
PQRS Measure Charge Sheet Comment: A 67 yr old male on portable O2 with a history of severe and chronic LBP x 30 years secondary to lumbar DDD and spondylosis with facet arthropathy without myelopathy presents today for medication refills. Pain level is provoked at 8 /10 in intensity, constant, localized in the lumbar spine, predominantly axial, dull/ achy in character without shooting pain. Pain is provoked by over activity or walking for periods of 20 min or more. Pain is alleviated with PT in 2019, home guided exercises since 2019, chiropractic treatments years ago which were ineffective, heat, ice, medications, topical, reclining, use of a cane for ambulatory assistance, repositioning and rest. Interventional pain procedures completed include DENIES Patient is currently on Star 10/325mg #180, Valium #15, Lidoderm 5% Patient denies any side effects of the medication(s), denies excessive drowsiness or sleepiness, denies suicidal ideation and reports that the current pain medication is helping to control the pain and improve activities of daily living. Patient denies any motor or sensory deficits. Patient denies any fever or night sweats, denies any change in the bowel movements or urination. Physical Examination: -Constitutional: Cooperative. Not in acute distress . - Neurologic: Cranial nerve II to XII intact. No focal neurological deficits. - Psychatric: Alert & oriented x 3. Matching mood & appropriate affect. Judgment and insight intact. - Musculoskeletal: Cervical spine: Muscle bulk/ tone/ strength in the bilateral upper extremities normal Vertebral body tenderness to palpation over Spurling test positive Distraction test positive Facet loading test positive TTP Thoracic spine Muscle bulk / tone/ strength in the bilateral paraspinal muscles normal Vertebral body tender to palpation over Facet loading test positive TTP Lumbar spine: Motor bulk/ tone/ strength lower extremities , thigh and legs : 5/5 Deep tendon reflexes : Normal Knee Jerk. Normal Ankle Jerk . Vertebral body tenderness to palpation over L3, L4, L5 Lumbar Facet Loading Test positive Straight Leg Raise: positive at 30 degrees right side/ left side Gaenslen's Test positive Sacral spine : Severe tenderness over the Sacroiliac joint: right side / left side Range of motion: Flexion of the lumbar spine <60 degrees Range of motion: Extension of the lumbar spine <20 degrees Gaenslen's Test positive right side / left side Porsche test: positive right side / left side Thigh Thrust Test positive right side / left side Sacral Thrust Test positive right side / left side Assessment and plan: Chronic LBP secondary to lumbar DDD, spondylosis with facet arthropathy without myelopathy Chronic and current use of high-risk medication (Opioids). The patient was counseled about risk of opioid use, psychological risk associated with opioids and was orally counseled to not overuse , divert or sell medications. Pt is to store medication in a safe location. The patient is counseled against driving while using narcotic medications and also not to use alcohol or any illicit recreational drugs. Patient verbalized understanding that the lack of compliance will result in failure to renew narcotic prescription(s) as well as possible discharge from the clinic Diagnoses, prognosis and treatment options including but not limited to physical therapy, surgical interventions, interventional therapies and medication management including narcotics and adjuvant medication were discussed. All patient questions answered . Narcotic agreement updated 04/26/23. MAPS reviewed and it was appropriate. UDS from 02/15/23 reviewed and consistent. Prescription refill for Star 10/325mg #180, Valium #15, Lidoderm 5% #30 w 1 RF I have spent less than 30 minutes on patient care today. Dr Hartley was available by phone for the evaluation of this patient. The time was used to rev iew the medical records including relevant urine studies and Prescription history (MAPs), review of the available imaging, evaluation and examination of the patient, coordination of care with the medical staff and if applicable referring physicians, as well as creation of the medical record PQRS Narrative: Smoking Status Former smoker Narcotic Agreement Date Signed 09/29/21 Hx Alcohol Use (MH) No Home Medications: Ambulatory Orders Butalb/APAP/Caff 50-325-40Mg [Fioricet 50-325-40] 1 - 2 tab PO Q4HR PRN 06/02/16 Famotidine 20 mg PO BID PRN 06/02/16 SUMAtriptan succinate [Imitrex] 25 mg PO DAILY PRN 06/02/16 Budesonide [Pulmicort Flexhaler] 2 puff INHALATION BID 06/30/16 Ergocalciferol (Vitamin D2) [Vitamin D2] 50,000 unit PO FR 06/30/16 Ketoconazole 2% Shampoo [Nizoral] 1 applic TOPICAL DIRECTED PRN 06/30/16 diphenhydrAMINE [Benadryl] 25 mg PO HS PRN 06/30/16 Melatonin [Melatonin ER] 5 mg PO HS 08/28/18 Umeclidinium [place] [Incruse Ellipta] 1 puff INHALATION DAILY 04/30/19 Albuterol Nebulized [Ventolin Nebulized] 2.5 mg INHALATION BID 01/01/20 Finasteride [Proscar] 5 mg PO DAILY 06/17/20 Loratadine-Pseudoeph 10-240 mg [Claritin-D 24 Hour] 1 tab PO DAILY PRN 06/17/20 Albuterol Sulfate [Albuterol Sulfate Hfa] 2 puff PO Q6H PRN 06/03/21 Fluconazole [Diflucan] 100 mg PO DAILY PRN 06/03/21 Zolpidem [Ambien] 5 mg PO HS PRN 06/03/21 Arformoterol Tartrate [Brovana] 15 mcg INHALATION RT-BID 01/19/22 Budesonide [Pulmicort] 1 mg INHALATION BID 01/19/22 HYDROcodone/APAP 10-325MG [Star 10-325] 1 tab PO Q4HR PRN 30 Days #180 tab 02/15/23 HYDROcodone/APAP 10-325MG [Star 10-325] 1 tab PO Q4HR PRN 30 Days #180 tab 04/26/23 HYDROcodone/APAP 10-325MG [Star 10-325] 1 tab PO Q4HR PRN 30 Days #180 tab 04/26/23 L.idocaine 5% Patch [Lidoderm 5% Patch] 1 each TP QAM 30 Days #30 patch 04/26/23 diazePAM [Valium] 5 mg PO DAILY PRN 30 Days #15 tab 04/26/23 Controlled Substance Measures - Controlled Substance Measures Is patient prescribed a controlled substance at discharge?: Yes When asked, does pt state using other controlled substances?: No If prescribed controlled substance>3 days was MAPS reviewed?: Yes If Rx opioid, was Start Talking consent form obtained?: Yes Was information provided regarding opioid addiction?: Yes
[2023-04-26 09:54] VITALS: BP 193/103; PULSE 84; RESP 16; TEMP 97.3
== END ==
LOC: PNWHC3 09:11
PROVIDERS: ATTEND Specialist
DX: M51.36 Other intervertebral disc degeneration, lumbar region (principal); M47.816 Spondylosis without myelopathy or radiculopathy, lumbar region; G89.29 Other chronic pain; Z79.891 Long term (current) use of opiate analgesic; Z87.891 Personal history of nicotine dependence; Z88.8 Allergy status to other drugs, medicaments and biological substances; Z88.6 Allergy status to analgesic agent; Z91.030 Bee allergy status; Z88.1 Allergy status to other antibiotic agents; Z91.040 Latex allergy status; Z88.5 Allergy status to narcotic agent; Z88.0 Allergy status to penicillin; Z88.2 Allergy status to sulfonamides; Z91.048 Other nonmedicinal substance allergy status; Z91.041 Radiographic dye allergy status
CPT/HCPCS: 99211

== ENCOUNTER → 2023-06-21 | Outpatient (CLI) | payer MEDICARE ==
[2023-06-21 10:01] VITALS: BP 147/98; PULSE 99; RESP 16; TEMP 98.7
--- NOTE | 2023-06-21 14:42 | P.PAINPG ---
PQRS Measure Charge Sheet Comment: A 67 yr old male on portable O2 with a history of severe and chronic LBP x 30 years secondary to lumbar DDD and spondylosis with facet arthropathy without myelopathy presents today for medication refills. Pain level is provoked at 8 /10 in intensity, constant, localized in the lumbar spine, predominantly axial, dull/ achy in character without shooting pain. Pain is provoked by over activity or walking for periods of 20 min or more. Pain is alleviated with PT in 2019, home guided exercises since 2019, chiropractic treatments years ago which were ineffective, heat, ice, medications, topical, reclining, use of a cane for ambulatory assistance, repositioning and rest. Interventional pain procedures completed include DENIES Patient is currently on [place] 10/325mg #180, Valium #15, Lidoderm 5% Patient denies any side effects of the medication(s), denies excessive drowsiness or sleepiness, denies suicidal ideation and reports that the current pain medication is helping to control the pain and improve activities of daily living. Patient denies any motor or sensory deficits. Patient denies any fever or night sweats, denies any change in the bowel movements or urination. Physical Examination: -Constitutional: Cooperative. Not in acute distress . - Neurologic: Cranial nerve II to XII intact. No focal neurological deficits. - Psychatric: Alert & oriented x 3. Matching mood & appropriate affect. Judgment and insight intact. - Musculoskeletal: Cervical spine: Muscle bulk/ tone/ strength in the bilateral upper extremities normal Vertebral body tenderness to palpation over Spurling test positive Distraction test positive Facet loading test positive TTP Thoracic spine Muscle bulk / tone/ strength in the bilateral paraspinal muscles normal Vertebral body tender to palpation over Facet loading test positive TTP Lumbar spine: Motor bulk/ tone/ strength lower extremities , thigh and legs : 5/5 Deep tendon reflexes : Normal Knee Jerk. Normal Ankle Jerk . Vertebral body tenderness to palpation over L3, L4, L5 Lumbar Facet Loading Test positive Straight Leg Raise: positive at 30 degrees right side/ left side Gaenslen's Test positive Sacral spine : Severe tenderness over the Sacroiliac joint: right side / left side Range of motion: Flexion of the lumbar spine <60 degrees Range of motion: Extension of the lumbar spine <20 degrees Gaenslen's Test positive right side / left side Porsche test: positive right side / left side Thigh Thrust Test positive right side / left side Sacral Thrust Test positive right side / left side Assessment and plan: Chronic LBP secondary to lumbar DDD, spondylosis with facet arthropathy without myelopathy Urged pt to go to ER for elevated blood pressure. Pt states he does not take medications for BP but that he needs more Valium to reduce BP. He states he just got over a URI and cellulitis but has no energy today. BP recheck still elevated. Dangers of elevated BP discussed. Requested wheelchair transport to ER. Pt acknowledged understanding. Chronic and current use of high-risk medication (Opioids). The patient was counseled about risk of opioid use, psychological risk associated with opioids and was orally counseled to not overuse , divert or sell medications. Pt is to store medication in a safe location. The patient is counseled against driving while using narcotic medications and also not to use alcohol or any illicit recreational drugs. Patient verbalized understanding that the lack of compliance will result in failure to renew narcotic prescription(s) as well as possible discharge from the clinic Diagnoses, prognosis and treatment options including but not limited to physical therapy, surgical interventions, interventional therapies and medication management including narcotics and adjuvant medication were discussed. All patient questions answered . Narcotic agreement updated 04/26/23. MAPS reviewed and it was appropriate. Blood tox screen script provided 06/21/23. Prescription refill for [place] 10/325mg #180, Valium #15, Lidoderm 5% #30 w 1 RF I have spent less than 30 minutes on patient care today. Dr Hartley was available by phone for the evaluation of this patient. The time was used to review the medical records including relevant urine studies and Prescription history (MAPs), review of the available imaging, evaluation and examination of the patient, coordination of care with the medical staff and if applicable referring physicians, as well as creation of the medical record - Pain Location Bilateral Lower Back Non-Pharmacological Interventions: Heat, Ice, Position/Reposition Pharmacological Interventions: Scheduled Medication PQRS Narrative: Smoking Status Former smoker Narcotic Agreement Date Signed 09/29/21 Hx Alcohol Use (MH) No Home Medications: Ambulatory Orders Butalb/APAP/Caff 50-325-40Mg [Fioricet 50-325-40] 1 - 2 tab PO Q4HR PRN 06/02/16 Famotidine 20 mg PO BID PRN 06/02/16 SUMAtriptan succinate [Imitrex] 25 mg PO DAILY PRN 06/02/16 Budesonide [Pulmicort Flexhaler] 2 puff INHALATION BID 06/30/16 Ergocalciferol (Vitamin D2) [Vitamin D2] 50,000 unit PO FR 06/30/16 Ketoconazole 2% Shampoo [Nizoral] 1 applic TOPICAL DIRECTED PRN 06/30/16 diphenhydrAMINE [Benadryl] 25 mg PO HS PRN 06/30/16 Melatonin [Melatonin ER] 5 mg PO HS 08/28/18 Umeclidinium [place] [Incruse Ellipta] 1 puff INHALATION DAILY 04/30/19 Albuterol Nebulized [Ventolin Nebulized] 2.5 mg INHALATION BID 01/01/20 Finasteride [Proscar] 5 mg PO DAILY 06/17/20 Loratadine-Pseudoeph 10-240 mg [Claritin-D 24 Hour] 1 tab PO DAILY PRN 06/17/20 Albuterol Sulfate [Albuterol Sulfate Hfa] 2 puff PO Q6H PRN 06/03/21 Fluconazole [Diflucan] 100 mg PO DAILY PRN 06/03/21 Zolpidem [Ambien] 5 mg PO HS PRN 06/03/21 Arformoterol Tartrate [Brovana] 15 mcg INHALATION RT-BID 01/19/22 Budesonide [Pulmicort] 1 mg INHALATION BID 01/19/22 Lidocaine 5% Patch [Lidoderm 5% Patch] 1 each TP QAM 30 Days #30 patch 04/26/23 HYDROcodone/APAP 10-325MG [[place] 10-325] 1 tab PO Q4HR PRN 30 Days #180 tab 05/09/23 HYDROcodone/APAP 10-325MG [[place] 10-325] 1 tab PO Q4HR PRN 30 Days #180 tab 05/09/23 Hydrocodone/Acetaminophen [Hydrocodone/Acetaminophen 10-300 mg] 1 tab PO Q4HR PRN 30 Days #180 tab 05/31/23 HYDROcodone/APAP 10-325MG [[place] 10-325] 1 tab PO Q4HR PRN 30 Days #180 tab 06/21/23 HYDROcodone/APAP 10-325MG [[place] 10-325] 1 tab PO Q4HR PRN 30 Days #180 tab 06/21/23 diazePAM [Valium] 5 mg PO DAILY PRN 30 Days #15 tab 06/21/23 Controlled Substance Measures - Controlled Substance Measures Is patient prescribed a controlled substance at discharge?: Yes When asked, does pt state using other controlled substances?: Yes If prescribed controlled substance>3 days was MAPS reviewed?: Yes
[2023-06-22 07:11] LABS: Serum Amphetamine Negative; Serum Barbiturates Negative; Serum Benzodiazepine Positive; Serum Cocaine Negative; Serum Methadone Negative; Serum Opiates Negative; Serum Phencyclidine Negative; Serum Propoxyphene Negative; Serum THC (Cannabis) Negative
== END ==
LOC: PNWHC3 09:12
PROVIDERS: ATTEND Anesthesiology
DX: M54.16 Radiculopathy, lumbar region (principal); M54.50 Low back pain, unspecified; M51.36 Other intervertebral disc degeneration, lumbar region; Z79.891 Long term (current) use of opiate analgesic; Z02.83 Encounter for blood-alcohol and blood-drug test; Z91.040 Latex allergy status; Z91.030 Bee allergy status; Z88.1 Allergy status to other antibiotic agents; Z88.8 Allergy status to other drugs, medicaments and biological substances; Z88.0 Allergy status to penicillin; Z88.2 Allergy status to sulfonamides; Z91.048 Other nonmedicinal substance allergy status; Z91.018 Allergy to other foods; Z88.6 Allergy status to analgesic agent; Z88.5 Allergy status to narcotic agent; Z87.891 Personal history of nicotine dependence
CPT/HCPCS: 80307; G0463; 99211

== ENCOUNTER → 2023-08-16 | Outpatient (CLI) | payer MEDICARE ==
[2023-08-16 12:10] VITALS: BP 119/72; PULSE 74; RESP 16; TEMP 98.1
--- NOTE | 2023-08-16 14:38 | P.PAINPG ---
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 Pain level is provoked at 8.5 /10 in intensity, constant, localized in the lumbar spine, predominantly axial, sharp in character without shooting pain. Pain is provoked by over activity or walking for periods of 20 min or more. Pain is alleviated with PT in 2019, home guided exercises since 2019, chiropractic treatments years ago which were ineffective, heat, ice, medications, topical, reclining, use of a cane for ambulatory assistance, repositioning and rest. Interventional pain procedures completed include DENIES Patient is currently on [place] 10/325mg #180, Valium #15, Lidoderm 5% Patient denies any side effects of the medication(s), denies excessive drowsiness or sleepiness, denies suicidal ideation and reports that the current pain medication is helping to control the pain and improve activities of daily living. Patient denies any motor or sensory deficits. Patient denies any fever or night sweats, denies any change in the bowel movements or urination. Physical Examination: -Constitutional: Cooperative. Not in acute distress . - Neurologic: Cranial nerve II to XII intact. No focal neurological deficits. - Psychatric: Alert & oriented x 3. Matching mood & appropriate affect. Judgment and insight intact. - Musculoskeletal: Cervical spine: Muscle bulk/ tone/ strength in the bilateral upper extremities normal Vertebral body tenderness to palpation over Spurling test positive Distraction test positive Facet loading test positive TTP Thoracic spine Muscle bulk / tone/ strength in the bilateral paraspinal muscles normal Vertebral body tender to palpation over Facet loading test positive TTP Lumbar spine: Motor bulk/ tone/ strength lower extremities , thigh and legs : 5/5 Deep tendon reflexes : Normal Knee Jerk. Normal Ankle Jerk . Vertebral body tenderness to palpation over L3, L4, L5 Lumbar Facet Loading Test positive Straight Leg Raise: positive at 30 degrees right side/ left side Gaenslen's Test positive Sacral spine : Severe tenderness over the Sacroiliac joint: right side / left side Range of motion: Flexion of the lumbar spine <60 degrees Range of motion: Extension of the lumbar spine <20 degrees Gaenslen's Test positive right side / left side Porsche test: positive right side / left side Thigh Thrust Test positive right side / left side Sacral Thrust Test positive right side / left side Assessment and plan: Chronic LBP secondary to lumbar DDD, spondylosis with facet arthropathy without myelopathy Chronic and current use of high-risk medication (Opioids). The patient was counseled about risk of opioid use, psychological risk associated with opioids and was orally counseled to not overuse , divert or sell medications. Pt is to store medication in a safe location. The patient is counseled against driving while using narcotic medications and also not to use alcohol or any illicit recreational drugs. Patient verbalized understanding that the lack of compliance will result in failure to renew narcotic prescription(s) as well as possible discharge from the clinic Diagnoses, prognosis and treatment options including but not limited to physical therapy, surgical interventions, interventional therapies and medication management including narcotics and adjuvant medication were discussed. All patient questions answered . Narcotic agreement updated 04/26/23. MAPS reviewed and it was appropriate. Blood tox screen script fr 06/21/23 NEG for Opiates. Will recheck UDS 08/16/23. Prescription refill for [place] 10/325mg #180, Valium #15, Lidoderm 5% #30 w 1 RF I have spent less than 30 minutes on patient care today. Dr Hartley was a vailable by phone for the evaluation of this patient. The time was used to review the medical records including relevant urine studies and Prescription history (MAPs), review of the available imaging, evaluation and examination of the patient, coordination of care with the medical staff and if applicable referring physicians, as well as creation of the medical record PQRS Narrative: Smoking Status Former smoker Narcotic Agreement Date Signed 04/26/23 Hx Alcohol Use (MH) No Home Medications: Ambulatory Orders Butalb/APAP/Caff 50-325-40Mg [Fioricet 50-325-40] 1 - 2 tab PO Q4HR PRN 06/02/16 Famotidine 20 mg PO BID PRN 06/02/16 SUMAtriptan succinate [Imitrex] 25 mg PO DAILY PRN 06/02/16 Budesonide [Pulmicort Flexhaler] 2 puff INHALATION BID 06/30/16 Ergocalciferol (Vitamin D2) [Vitamin D2] 50,000 unit PO FR 06/30/16 Ketoconazole 2% Shampoo [Nizoral] 1 applic TOPICAL DIRECTED PRN 06/30/16 diphenhydrAMINE [Benadryl] 25 mg PO HS PRN 06/30/16 Melatonin [Melatonin ER] 5 mg PO HS 08/28/18 Umeclidinium [place] [Incruse Ellipta] 1 puff INHALATION DAILY 04/30/19 Albuterol Nebulized [Ventolin Nebulized] 2.5 mg INHALATION BID 01/01/20 Finasteride [Proscar] 5 mg PO DAILY 06/17/20 Loratadine-Pseudoeph 10-240 mg [Claritin-D 24 Hour] 1 tab PO DAILY PRN 06/17/20 Albuterol Sulfate [Albuterol Sulfate Hfa] 2 puff PO Q6H PRN 06/03/21 Fluconazole [Diflucan] 100 mg PO DAILY PRN 06/03/21 Zolpidem [Ambien] 5 mg PO HS PRN 06/03/21 Arformoterol Tartrate [Brovana] 15 mcg INHALATION RT-BID 01/19/22 Budesonide [Pulmicort] 1 mg INHALATION BID 01/19/22 HYDROcodone/APAP 10-325MG [[place] 10-325] 1 tab PO Q4HR PRN 30 Days #180 tab 08/16/23 HYDROcodone/APAP 10-325MG [[place] 10-325] 1 tab PO Q4HR PRN 30 Days #180 tab 08/16/23 Lidocaine 5% Patch [Lidoderm 5% Patch] 1 each TP QAM 30 Days #30 patch 08/16/23 diazePAM [Valium] 5 mg PO DAILY PRN 30 Days #15 tab 08/16/23 Controlled Substance Measures - Controlled Substance Measures Is patient prescribed a controlled substance at discharge?: Yes When asked, does pt state using other controlled substances?: Yes If prescribed controlled substance>3 days was MAPS reviewed?: Yes
== END ==
LOC: PNWHC3 09:15
PROVIDERS: ATTEND Specialist
DX: M51.36 Other intervertebral disc degeneration, lumbar region (principal); M47.816 Spondylosis without myelopathy or radiculopathy, lumbar region; G89.29 Other chronic pain; Z79.891 Long term (current) use of opiate analgesic; Z87.891 Personal history of nicotine dependence; Z88.6 Allergy status to analgesic agent; Z88.8 Allergy status to other drugs, medicaments and biological substances; Z91.040 Latex allergy status; Z88.5 Allergy status to narcotic agent; Z88.2 Allergy status to sulfonamides; Z88.0 Allergy status to penicillin; Z91.041 Radiographic dye allergy status; Z91.030 Bee allergy status; Z91.048 Other nonmedicinal substance allergy status
CPT/HCPCS: 80307; G0463; 99211; 99212

== ENCOUNTER → 2023-10-25 | Outpatient (CLI) | payer MEDICARE, OTHER ==
[2023-10-25 10:39] VITALS: BP 114/69; PULSE 93; RESP 18
--- NOTE | 2023-10-25 15:15 | P.PAINPG ---
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 Pain level is provoked at 7 /10 in intensity, constant, lo calized in the lumbar spine, predominantly axial, sharp in character without shooting pain. Pain is provoked by over activity or walking for periods of 20 min or more. Pain is alleviated with PT in 2019, home guided exercises since 2019, chiropractic treatments years ago which were ineffective, heat, ice, medications, topical, reclining, use of a cane for ambulatory assistance, repositioning and rest. Interventional pain procedures completed include DENIES Patient is currently on [place] 10/325mg #180, Valium #15, Lidoderm 5% Patient denies any side effects of the medication(s), denies excessive drowsiness or sleepiness, denies suicidal ideation and reports that the current pain medication is helping to control the pain and improve activities of daily living. Patient denies any motor or sensory deficits. Patient denies any fever or night sweats, denies any change in the bowel movements or urination. Physical Examination: -Constitutional: Cooperative. Not in acute distress . - Neurologic: Cranial nerve II to XII intact. No focal neurological deficits. - Psychatric: Alert & oriented x 3. Matching mood & appropriate affect. Judgment and insight intact. - Musculoskeletal: Cervical spine: Muscle bulk/ tone/ strength in the bilateral upper extremities normal Vertebral body tenderness to palpation over Spurling test positive Distraction test positive Facet loading test positive TTP Thoracic spine Muscle bulk / tone/ strength in the bilateral paraspinal muscles normal Vertebral body tender to palpation over Facet loading test positive TTP Lumbar spine: Motor bulk/ tone/ strength lower extremities , thigh and legs : 5/5 Deep tendon reflexes : Normal Knee Jerk. Normal Ankle Jerk . Vertebral body tenderness to palpation over L3, L4, L5 Lumbar Facet Loading Test positive Straight Leg Raise: positive at 30 degrees right side/ left side Gaenslen's Test positive Sacral spine : Severe tenderness over the Sacroiliac joint: right side / left side Range of motion: Flexion of the lumbar spine <60 degrees Range of motion: Extension of the lumbar spine <20 degrees Gaenslen's Test positive right side / left side Porsche test: positive right side / left side Thigh Thrust Test positive right side / left side Sacral Thrust Test positive right side / left side Assessment and plan: Chronic LBP secondary to lumbar DDD, spondylosis with facet arthropathy without myelopathy Chronic and current use of high-risk medication (Opioids). The patient was counseled about risk of opioid use, psychological risk associated with opioids and was orally counseled to not overuse , divert or sell medications. Pt is to store medication in a safe location. The patient is counseled against driving while using narcotic medications and also not to use alcohol or any illicit recreational drugs. Patient verbalized understanding that the lack of compliance will result in failure to renew narcotic prescription(s) as well as possible discharge from the clinic Diagnoses, prognosis and treatment options including but not limited to physical therapy, surgical interventions, interventional therapies and medication management including narcotics and adjuvant medication were discussed. All patient questions answered . Narcotic agreement updated 04/26/23. MAPS reviewed and it was appropriate. UDS 08/16/23 reviewed and consistent. Prescription refill for [place] 10/325mg #180, Valium #15, Lidoderm 5% #30 w 1 RF I have spent less than 30 minutes on patient care today. Dr Hartley was available by phone for the evaluation of this patient. The time was used to review the medical records including relevant urine studies and Prescription history (MAPs), review of the available imaging, evaluation and examination of the patient, coordination of care with the medical staff and if applicable referring physicians, as well as creation of the medical record PQRS Narrative: Smoking Status Former smoker Narcotic Agreement Date Signed 04/26/23 Hx Alcohol Use (MH) No Home Medications: Ambulatory Orders Butalb/APAP/Caff 50-325-40Mg [Fioricet 50-325-40] 1 - 2 tab PO Q4HR PRN 06/02/16 Famotidine 20 mg PO BID PRN 06/02/16 SUMAtriptan succinate [Imitrex] 25 mg PO DAILY PRN 06/02/16 Budesonide [Pulmicort Flexhaler] 2 puff INHALATION BID 06/30/16 Ergocalciferol (Vitamin D2) [Vitamin D2] 50,000 unit PO FR 06/30/16 Ketoconazole 2% Shampoo [Nizoral] 1 applic TOPICAL DIRECTED PRN 02/09/17 diphenhydrAMINE [Benadryl] 25 mg PO HS PRN 06/30/16 Melatonin [Melatonin ER] 5 mg PO HS 08/28/18 Umeclidinium [place] [Incruse Ellipta] 1 puff INHALATION DAILY 04/30/19 Albuterol Nebulized [Ventolin Nebulized] 2.5 mg INHALATION BID 01/01/20 Finasteride [Proscar] 5 mg PO DAILY 06/17/20 Loratadine-Pseudoeph 10-240 mg [Claritin-D 24 Hour] 1 tab PO DAILY PRN 06/17/20 Albuterol Sulfate [Albuterol Sulfate Hfa] 2 puff PO Q6H PRN 06/03/21 Fluconazole [Diflucan] 100 mg PO DAILY PRN 06/03/21 Zolpidem [Ambien] 5 mg PO HS PRN 06/03/21 Arformoterol Tartrate [Brovana] 15 mcg INHALATION RT-BID 01/19/22 Budesonide [Pulmicort] 1 mg INHALATION BID 01/19/22 HYDROcodone/APAP 10-325MG [[place] 10-325] 1 tab PO Q4HR PRN 30 Days #180 tab 10/25/23 HYDROcodone/APAP 10-325MG [[place] 10-325] 1 tab PO Q4HR PRN 30 Days #180 tab 10/25/23 Lidocaine 5% Patch [Lidoderm 5% Patch] 1 each TP QAM 30 Days #30 patch 10/25/23 diazePAM [Valium] 5 mg PO DAILY PRN 30 Days #15 tab 10/25/23 Controlled Substance Measures - Controlled Substance Measures Is patient prescribed a controlled substance at discharge?: Yes When asked, does pt state using other controlled substances?: Yes If prescribed controlled substance>3 days was MAPS reviewed?: Yes
== END ==
LOC: PNWHC3 09:30
PROVIDERS: ATTEND Specialist
DX: M51.36 Other intervertebral disc degeneration, lumbar region (principal); M47.816 Spondylosis without myelopathy or radiculopathy, lumbar region; Z79.891 Long term (current) use of opiate analgesic; Z87.891 Personal history of nicotine dependence; Z88.8 Allergy status to other drugs, medicaments and biological substances; Z88.6 Allergy status to analgesic agent; Z91.030 Bee allergy status; Z88.5 Allergy status to narcotic agent; Z88.0 Allergy status to penicillin; Z88.2 Allergy status to sulfonamides; Z91.040 Latex allergy status; Z91.041 Radiographic dye allergy status; Z91.048 Other nonmedicinal substance allergy status
CPT/HCPCS: 99211

== ENCOUNTER → 2023-12-20 | Outpatient (CLI) | payer OTHER ==
[2023-12-20 10:46] VITALS: BP 131/51; PULSE 108; RESP 16
--- NOTE | 2023-12-20 14:47 | P.PAINPG ---
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 Pain level is provoked at 8 /10 in intensity, constant, lo calized in the lumbar spine, predominantly axial, sharp in character w occasional R knee shooting pain. Pain is provoked by over activity or walking for periods of 20 min or more. Pain is alleviated with PT in 2019, home guided exercises since 2019, chiropractic treatments years ago which were ineffective, heat, ice, medications, topical, reclining, use of a cane for ambulatory assistance, repositioning and rest. Interventional pain procedures completed include DENIES Patient is currently on [place] 10/325mg #180, Valium #15, Lidoderm 5% Patient denies any side effects of the medication(s), denies excessive drowsiness or sleepiness, denies suicidal ideation and reports that the current pain medication is helping to control the pain and improve activities of daily living. Patient denies any motor or sensory deficits. Patient denies any fever or night sweats, denies any change in the bowel movements or urination. Physical Examination: -Constitutional: Cooperative. Not in acute distress . - Neurologic: Cranial nerve II to XII intact. No focal neurological deficits. - Psychatric: Alert & oriented x 3. Matching mood & appropriate affect. Judgment and insight intact. - Musculoskeletal: Cervical spine: Muscle bulk/ tone/ strength in the bilateral upper extremities normal Vertebral body tenderness to palpation over Spurling test positive Distraction test positive Facet loading test positive TTP Thoracic spine Muscle bulk / tone/ strength in the bilateral paraspinal muscles normal Vertebral body tender to palpation over Facet loading test positive TTP Lumbar spine: Motor bulk/ tone/ strength lower extremities , thigh and legs : 5/5 Deep tendon reflexes : Normal Knee Jerk. Normal Ankle Jerk . Vertebral body tenderness to palpation over L3, L4, L5 Lumbar Facet Loading Test positive Straight Leg Raise: positive at 30 degrees right side/ left side Gaenslen's Test positive Sacral spine : Severe tenderness over the Sacroiliac joint: right side / left side Range of motion: Flexion of the lumbar spine <60 degrees Range of motion: Extension of the lumbar spine <20 degrees Gaenslen's Test positive right side / left side Porsche test: positive right side / left side Thigh Thrust Test positive right side / left side Sacral Thrust Test positive right side / left side Assessment and plan: Chronic LBP secondary to lumbar DDD, spondylosis with facet arthropathy without myelopathy Chronic and current use of high-risk medication (Opioids). The patient was counseled about risk of opioid use, psychological risk associated with opioids and was orally counseled to not overuse , divert or sell medications. Pt is to store medication in a safe location. The patient is counseled against driving while using narcotic medications and also not to use alcohol or any illicit recreational drugs. Patient verbalized understanding that the lack of compliance will result in failure to renew narcotic prescription(s) as well as possible discharge from the clinic Diagnoses, prognosis and treatment options including but not limited to physical therapy, surgical interventions, interventional therapies and medication management including narcotics and adjuvant medication were discussed. All patient questions answered . Narcotic agreement updated 04/26/23. MAPS reviewed and it was appropriate. UDS 08/16/23 reviewed and consi stent. Prescription refill for [place] 10/325mg #180, Valium #15, Lidoderm 5% #30 w 1 RF I have spent less than 30 minutes on patient care today. Dr Hartley was available by phone for the evaluation of this patient. The time was used to review the medical records including relevant urine studies and Prescription history (MAPs), review of the available imaging, evaluation and examination of the patient, coordination of care with the medical staff and if applicable referring physicians, as well as creation of the medical record PQRS Narrative: Smoking Status Former smoker Narcotic Agreement Date Signed 04/26/23 Hx Alcohol Use (MH) No Home Medications: Ambulatory Orders Butalb/APAP/Caff 50-325-40Mg [Fioricet 50-325-40] 1 - 2 tab PO Q4HR PRN 06/02/16 Famotidine 20 mg PO BID PRN 06/02/16 SUMAtriptan succinate [Imitrex] 25 mg PO DAILY PRN 06/02/16 Budesonide [Pulmicort Flexhaler] 2 puff INHALATION BID 06/30/16 Ergocalciferol (Vitamin D2) [Vitamin D2] 50,000 unit PO FR 06/30/16 Ketoconazole 2% Shampoo [Nizoral] 1 applic TOPICAL DIRECTED PRN 06/30/16 diphenhydrAMINE [Benadryl] 25 mg PO HS PRN 06/30/16 Melatonin [Melatonin ER] 5 mg PO HS 08/28/18 Umeclidinium [place] [Incruse Ellipta] 1 puff INHALATION DAILY 04/30/19 Albuterol Nebulized [Ventolin Nebulized] 2.5 mg INHALATION BID 01/01/20 Finasteride [Proscar] 5 mg PO DAILY 06/17/20 Loratadine-Pseudoeph 10-240 mg [Claritin-D 24 Hour] 1 tab PO DAILY PRN 06/17/20 Albuterol Sulfate [Albuterol Sulfate Hfa] 2 puff PO Q6H PRN 06/03/21 Fluconazole [Diflucan] 100 mg PO DAILY PRN 06/03/21 Zolpidem [Ambien] 5 mg PO HS PRN 06/03/21 Arformoterol Tartrate [Brovana] 15 mcg INHALATION RT-BID 01/19/22 Budesonide [Pulmicort] 1 mg INHALATION BID 01/19/22 HYDROcodone/APAP 10-325MG [[place] 10-325] 1 tab PO Q4HR PRN 30 Days #180 tab 10/12 HYDROcodone/APAP 10-325MG [[place] 10-325] 1 tab PO Q4HR PRN 30 Days #180 tab 10/25/23 Lidocaine 5% Patch [Lidoderm 5% Patch] 1 each TP QAM 30 Days #30 patch 10/25/23 diazePAM [Valium] 5 mg PO DAILY PRN 30 Days #15 tab 10/25/23 Controlled Substance Measures - Controlled Substance Measures Is patient prescribed a controlled substance at discharge?: Yes When asked, does pt state using other controlled substances?: Yes If prescribed controlled substance>3 days was MAPS reviewed?: Yes
== END ==
LOC: PNWHC3 09:41
PROVIDERS: ATTEND Specialist
DX: M51.36 Other intervertebral disc degeneration, lumbar region (principal); M47.816 Spondylosis without myelopathy or radiculopathy, lumbar region; Z79.891 Long term (current) use of opiate analgesic; Z87.891 Personal history of nicotine dependence; Z88.8 Allergy status to other drugs, medicaments and biological substances; Z88.6 Allergy status to analgesic agent; Z91.030 Bee allergy status; Z91.040 Latex allergy status; Z88.0 Allergy status to penicillin; Z88.2 Allergy status to sulfonamides; Z88.5 Allergy status to narcotic agent; Z91.048 Other nonmedicinal substance allergy status; Z91.041 Radiographic dye allergy status
CPT/HCPCS: 99211

== ENCOUNTER → 2024-02-14 | Outpatient (CLI) | payer OTHER ==
[2024-02-14 12:08] VITALS: BP 117/75; PULSE 109; RESP 16; TEMP 97.1
--- NOTE | 2024-02-14 15:31 | P.PAINPG ---
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 Pain level is provoked at 8 /10 in intensity, constant, lo calized in the lumbar spine, predominantly axial, sharp in character w occasional R knee shooting pain. Pain is provoked by over activity or walking for periods of 20 min or more. Pain is alleviated with PT in 2019, home guided exercises since 2019, chiropractic treatments years ago which were ineffective, heat, ice, medications, topical, reclining, use of a cane for ambulatory assistance, repositioning and rest. Interventional pain procedures completed include DENIES Patient is currently on [place] 10/325mg #180, Valium #15, Lidoderm 5% Patient denies any side effects of the medication(s), denies excessive drowsiness or sleepiness, denies suicidal ideation and reports that the current pain medication is helping to control the pain and improve activities of daily living. Patient denies any motor or sensory deficits. Patient denies any fever or night sweats, denies any change in the bowel movements or urination. Physical Examination: -Constitutional: Cooperative. Not in acute distress . - Neurologic: Cranial nerve II to XII intact. No focal neurological deficits. - Psychatric: Alert & oriented x 3. Matching mood & appropriate affect. Judgment and insight intact. - Musculoskeletal: Cervical spine: Muscle bulk/ tone/ strength in the bilateral upper extremities normal Vertebral body tenderness to palpation over Spurling test positive Distraction test positive Facet loading test positive TTP Thoracic spine Muscle bulk / tone/ strength in the bilateral paraspinal muscles normal Vertebral body tender to palpation over Facet loading test positive TTP Lumbar spine: Motor bulk/ tone/ strength lower extremities , thigh and legs : 5/5 Deep tendon reflexes : Normal Knee Jerk. Normal Ankle Jerk . Vertebral body tenderness to palpation over L3, L4, L5 Lumbar Facet Loading Test positive Straight Leg Raise: positive at 30 degrees right side/ left side Gaenslen's Test positive Sacral spine : Severe tenderness over the Sacroiliac joint: right side / left side Range of motion: Flexion of the lumbar spine <60 degrees Range of motion: Extension of the lumbar spine <20 degrees Gaenslen's Test positive right side / left side Porsche test: positive right side / left side Thigh Thrust Test positive right side / left side Sacral Thrust Test positive right side / left side Assessment and plan: Chronic LBP secondary to lumbar DDD, spondylosis with facet arthropathy without myelopathy Chronic and current use of high-risk medication (Opioids). The patient was counseled about risk of opioid use, psychological risk associated with opioids and was orally counseled to not overuse , divert or sell medications. Pt is to store medication in a safe location. The patient is counseled against driving while using narcotic medications and also not to use alcohol or any illicit recreational drugs. Patient verbalized understanding that the lack of compliance will result in failure to renew narcotic prescription(s) as well as possible discharge from the clinic Diagnoses, prognosis and treatment options including but not limited to physical therapy, surgical interventions, interventional therapies and medication management including narcotics and adjuvant medication were discussed. All patient questions answered . Narcotic agreement updated 04/26/23. MAPS reviewed and it was appropriate. Blood tox screen collected 02/14/24. Prescription refill for [place] 10/325mg #180, Valium #15, Lidoderm 5% #30 w 1 RF I have spent less than 30 minutes on patient care today. Dr Hartley was available by phone for the evaluation of this patient. The time was used to review the medical records including relevant urine studies and Prescription history (MAPs), review of the available imaging, evaluation and examination of t he patient, coordination of care with the medical staff and if applicable referring physicians, as well as creation of the medical record PQRS Narrative: Smoking Status Former smoker Narcotic Agreement Date Signed 04/26/23 Hx Alcohol Use (MH) No Home Medications: Ambulatory Orders Butalb/APAP/Caff 50-325-40Mg [Fioricet 50-325-40] 1 - 2 tab PO Q4HR PRN 06/02/16 Famotidine 20 mg PO BID PRN 06/02/16 SUMAtriptan succinate [Imitrex] 25 mg PO DAILY PRN 06/02/16 Budesonide [Pulmicort Flexhaler] 2 puff INHALATION BID 06/30/16 Ergocalciferol (Vitamin D2) [Vitamin D2] 50,000 unit PO FR 06/30/16 Ketoconazole 2% Shampoo [Nizoral] 1 applic TOPICAL DIRECTED PRN 06/30/16 diphenhydrAMINE [Benadryl] 25 mg PO HS PRN 06/30/16 Melatonin [Melatonin ER] 5 mg PO HS 08/28/18 Umeclidinium [place] [Incruse Ellipta] 1 puff INHALATION DAILY 04/30/19 Albuterol Nebulized [Ventolin Nebulized] 2.5 mg INHALATION BID 01/01/20 Finasteride [Proscar] 5 mg PO DAILY 06/17/20 Loratadine-Pseudoeph 10-240 mg [Claritin-D 24 Hour] 1 tab PO DAILY PRN 06/17/20 Albuterol Sulfate [Albuterol Sulfate Hfa] 2 puff PO Q6H PRN 06/03/21 Fluconazole [Diflucan] 100 mg PO DAILY PRN 06/03/21 Zolpidem [Ambien] 5 mg PO HS PRN 06/03/21 Arformoterol Tartrate [Brovana] 15 mcg INHALATION RT-BID 01/19/22 Budesonide [Pulmicort] 1 mg INHALATION BID 01/19/22 HYDROcodone/APAP 10-325MG [[place] 10-325] 1 tab PO Q4HR PRN 30 Days #180 tab 02/14/24 HYDROcodone/APAP 10-325MG [[place] 10-325] 1 tab PO Q4HR PRN 30 Days #180 tab 02/14/24 Lidocaine 5% Patch [Lidoderm 5% Patch] 1 each TP QAM 30 Days #30 patch 02/14/24 diazePAM [Valium] 5 mg PO DAILY PRN 30 Days #15 tab 02/14/24 Controlled Substance Measures - Controlled Substance Measures Is patient prescribed a controlled substance at discharge?: Yes When asked, does pt state using other controlled substances?: Yes If prescribed controlled substance>3 days was MAPS reviewed?: Yes
== END ==
LOC: PNWHC3 09:32
PROVIDERS: ATTEND Specialist
DX: G89.4 Chronic pain syndrome
CPT/HCPCS: 80307; 99212

== ENCOUNTER → 2024-04-10 | Outpatient (CLI) | payer OTHER ==
[2024-04-10 08:59] VITALS: BP 110/62; PULSE 95; RESP 16
--- NOTE | 2024-04-10 14:17 | P.PAINPG ---
PQRS Measure Charge Sheet Comment: A 68 yr old wheelchair bound male w peyton Rojas at side on portable O2 with a history of severe and chronic LBP x 30 years secondary to lumbar DDD and spondylosis with facet arthropathy without myelopathy presents today for medication refills. Pain level is provoked at 8 /10 in intensity, constant, localized in the lumbar spine, predominantly axial, sharp in character w occasional R knee and ankle shooting pain. Pain is provoked by over activity or walking for periods of 20 min or more. Pain is alleviated with PT in 2019, home guided exercises since 2019, chiropractic treatments years ago which were ineffective, heat, ice, medications, topical, reclining, use of a cane for ambulatory assistance, repositioning and rest. Interventional pain procedures completed include DENIES Patient is currently on [place] 10/325mg #180, Valium #15, Lidoderm 5% Patient denies any side effects of the medication(s), denies excessive drowsiness or sleepiness, denies suicidal ideation and reports that the current pain medication is helping to control the pain and improve activities of daily living. Patient denies any motor or sensory deficits. Patient denies any fever or night sweats, denies any change in the bowel movements or urination. Physical Examination: -Constitutional: Cooperative. Not in acute distress . - Neurologic: Cranial nerve II to XII intact. No focal neurological deficits. - Psychatric: Alert & oriented x 3. Matching mood & appropriate affect. Judgment and insight intact. - Musculoskeletal: Cervical spine: Muscle bulk/ tone/ strength in the bilateral upper extremities normal Vertebral body tenderness to palpation over Spurling test positive Distraction test positive Facet loading test positive TTP Thoracic spine Muscle bulk / tone/ strength in the bilateral paraspinal muscles normal Vertebral body tender to palpation over Facet loading test positive TTP Lumbar spine: Motor bulk/ tone/ strength lower extremities , thigh and legs : 5/5 Deep tendon reflexes : Normal Knee Jerk. Normal Ankle Jerk . Vertebral body tenderness to palpation over L3, L4, L5 Lumbar Facet Loading Test positive Straight Leg Raise: positive at 30 degrees right side/ left side Gaenslen's Test positive Sacral spine : Severe tenderness over the Sacroiliac joint: right side / left side Range of motion: Flexion of the lumbar spine <60 degrees Range of motion: Extension of the lumbar spine <20 degrees Gaenslen's Test positive right side / left side Porsche test: positive right side / left side Thigh Thrust Test positive right side / left side Sacral Thrust Test positive right side / left side Assessment and plan: Chronic LBP secondary to radiculopathy, spondylosis with facet arthropathy without myelopathy Chronic and current use of high-risk medication (Opioids). The patient was counseled about risk of opioid use, psychological risk associated with opioids and was orally counseled to not overuse , divert or sell medications. Pt is to store medication in a safe location. The patient is counseled against driving while using narcotic medications and also not to use alcohol or any illicit recreational drugs. Patient verbalized understanding that the lack of compliance will result in failure to renew narcotic prescription(s) as well as possible discharge from the clinic Diagnoses, prognosis and treatment options including but not limited to physical therapy, surgical interventions, interventional therapies and medication management including narcotics and adjuvant medication were discussed. All patient questions answered . Narcotic agreement updated 04/26/23. MAPS reviewed and it was appropriate. Blood tox screen from 02/14/24 reviewed and consistent. Prescription refill for [place] 10/325mg #180, Valium #15, Lidoderm 5% #30 w 1 RF. Add Narcan, use, side effects, adverse reactions, safe storage discussed. Pt acknowledged understanding. I have spent less than 30 minutes on patient care today. Dr Hartley was available by phone for the evaluation of this patient. The time was used to review the medical records including relevant urine studies and Prescription history (MAPs), review of the available imaging, evaluation and examination of the patient, coordination of care with the medical staff and if applicable referring physicians, as well as creation of the medical record PQRS Narrative: Smoking Status Former smoker Narcotic Agreement Date Signed 04/26/23 Hx Alcohol Use (MH) No Home Medications: Ambulatory Orders Butalb/APAP/Caff 50-325-40Mg [Fioricet 50-325-40] 1 - 2 tab PO Q4HR PRN 06/02/16 Famotidine 20 mg PO BID PRN 06/02/16 SUMAtriptan succinate [Imitrex] 25 mg PO DAILY PRN 06/02/16 Budesonide [Pulmicort Flexhaler] 2 puff INHALATION BID 06/30/16 Ergocalciferol (Vitamin D2) [Vitamin D2] 50,000 unit PO FR 06/30/16 Ketoconazole 2% Shampoo [Nizoral] 1 applic TOPICAL DIRECTED PRN 06/30/16 diphenhydrAMINE [Benadryl] 25 mg PO HS PRN 06/30/16 Melatonin [Melatonin Tr] 5 mg PO HS 08/28/18 Umeclidinium [place] [Incruse Ellipta] 1 puff INHALATION DAILY 04/30/19 Albuterol Nebulized [Ventolin Nebulized] 2.5 mg INHALATION BID 01/01/20 Finasteride [Proscar] 5 mg PO DAILY 06/17/20 Loratadine-Pseudoeph 10-240 mg [Claritin-D 24 Hour] 1 tab PO DAILY PRN 06/17/20 Albuterol Sulfate [Albuterol Sulfate Hfa] 2 puff PO Q6H PRN 06/03/21 Fluconazole [Diflucan] 100 mg PO DAILY PRN 06/03/21 Zolpidem [Ambien] 5 mg PO HS PRN 06/03/21 Arformoterol Tartrate [Brovana] 15 mcg INHALATION RT-BID 01/19/22 Budesonide [Pulmicort] 1 mg INHALATION BID 01/19/22 HYDROcodone/APAP 10-325MG [[place] 10-325] 1 tab PO Q4HR PRN 30 Days #180 tab 04/10/24 HYDROcodone/APAP 10-325MG [[place] 10-325] 1 tab PO Q4HR PRN 30 Days #180 tab 04/10/24 Lidocaine 5% Patch [Lidoderm 5% Patch] 1 each TP QAM 30 Days #30 patch 04/10/24 Naloxone HCl [Narcan] 4 mg NASAL ONCE 180 Days #1 each 04/10/24 diazePAM [Valium] 5 mg PO DAILY PRN 30 Days #15 tab 04/10/24 Controlled Substance Measures - Controlled Substance Measures Is patient prescribed a controlled substance at discharge?: Yes When asked, does pt state using other controlled substances?: Yes If prescribed controlled substance>3 days was MAPS reviewed?: Yes
== END ==
LOC: PNWHC3 08:36
PROVIDERS: ATTEND Specialist
DX: M47.26 Other spondylosis with radiculopathy, lumbar region (principal); Z79.891 Long term (current) use of opiate analgesic; Z87.891 Personal history of nicotine dependence; Z88.8 Allergy status to other drugs, medicaments and biological substances; Z88.6 Allergy status to analgesic agent; Z91.030 Bee allergy status; Z91.041 Radiographic dye allergy status; Z91.040 Latex allergy status; Z88.5 Allergy status to narcotic agent; Z88.0 Allergy status to penicillin; Z88.2 Allergy status to sulfonamides; Z91.048 Other nonmedicinal substance allergy status
CPT/HCPCS: 99211

== ENCOUNTER → 2024-07-31 | Outpatient (CLI) | payer OTHER ==
[2024-07-31 09:42] VITALS: BP 125/81; PULSE 104; RESP 16; TEMP 96.8
--- NOTE | 2024-07-31 15:45 | P.PAINPG ---
PQRS Measure Charge Sheet Comment: A 69 yr old wheelchair bound male w peyton Rojas at side on portable O2 with a history of severe and chronic LBP x 30 years secondary to radiculopathy, spondylosis with facet arthropathy without myelopathy presents today for medication refills. Pain level is provoked at 8 /10 in intensity, constant, localized in the lumbar spine, predominantly axial, sharp in character w occasional R knee and ankle shooting pain. Pain is provoked by over activity or walking for periods of 20 min or more. Pain is alleviated with PT in 2019, home guided exercises since 2019, chiropractic treatments years ago which were ineffective, heat, ice, medications, topical, reclining, use of a cane for ambulatory assistance, repositioning and rest. Pt fell and bruised his R ankle. He was told he has cellulitis and is currently on Ciprofloxacin for it. Advised pt to elevate RLE at least 2h a day to reduce swelling. Interventional pain procedures completed include DENIES Patient is currently on [place] 10/325mg #180, Valium #15, Lidoderm 5% Patient denies any side effects of the medication(s), denies excessive drowsiness or sleepiness, denies suicidal ideation and reports that the current pain medication is helping to control the pain and improve activities of daily living. Patient denies any motor or sensory deficits. Patient denies any fever or night sweats, denies any change in the bowel movements or urination. Physical Examination: -Constitutional: Cooperative. Not in acute distress . - Neurologic: Cranial nerve II to XII intact. No focal neurological deficits. - Psychatric: Alert & oriented x 3. Matching mood & appropriate affect. Judgment and insight intact. - Musculoskeletal: Cervical spine: Muscle bulk/ tone/ strength in the bilateral upper extremities normal Vertebral body tenderness to palpation over Spurling test positive Distraction test positive Facet loading test positive TTP Thoracic spine Muscle bulk / tone/ strength in the bilateral paraspinal muscles normal Vertebral body tender to palpation over Facet loading test positive TTP Lumbar spine: +R Ankle 3+non pitting edema Motor bulk/ tone/ strength lower extremities , thigh and legs : 5/5 Deep tendon reflexes : Normal Knee Jerk. Normal Ankle Jerk . Vertebral body tenderness to palpation over L3, L4, L5 Lumbar Facet Loading Test positive Straight Leg Raise: positive at 30 degrees right side/ left side Gaenslen's Test positive Sacral spine : Severe tenderness over the Sacroiliac joint: right side / left side Range of motion: Flexion of the lumbar spine <60 degrees Range of motion: Extension of the lumbar spine <20 degrees Gaenslen's Test positive right side / left side Porsche test: positive right side / left side Thigh Thrust Test positive right side / left side Sacral Thrust Test positive right side / left side Assessment and plan: Chronic LBP secondary to radiculopathy, spondylosis with facet arthropathy without myelopathy Chronic and current use of high-risk medication (Opioids). The patient was counseled about risk of opioid use, psychological risk associated with opioids and was orally counseled to not overuse , divert or sell medications. Pt is to store medication in a safe location. The patient is counseled against driving while using narcotic medications and also not to use alcohol or any illicit recreational drugs. Patient verbalized understanding that the lack of compliance will result in failure to renew narcotic prescription(s) as well as possible discharge from the clinic Diagnoses, prognosis and treatment options including but not limited to physical therapy, surgical interventions, interventional therapies and me dication management including narcotics and adjuvant medication were discussed. All patient questions answered . Narcotic agreement updated 04/26/23. MAPS reviewed and it was appropriate. Blood tox screen from 02/14/24 reviewed and consistent. Prescription refill for [place] 10/325mg #180, Valium #15, Lidoderm 5% #30 w 1 RF. Added Narcan, use, side effects, adverse reactions, safe storage discussed. Pt acknowledged understanding. I have spent less than 30 minutes on patient care today. Dr Hartley was available by phone for the evaluation of this patient. The time was used to review the medical records including relevant urine studies and Prescription history (MAPs), review of the available imaging, evaluation and examination of the patient, coordination of care with the medical staff and if applicable referring physicians, as well as creation of the medical record - Pain Location Bilateral Lower Back Non-Pharmacological Interventions: Heat, Ice, Inactivity, Physical Therapy, Position/Reposition, Sitting Pharmacological Interventions: Block, Epidural, PRN Medication, Scheduled Me dication, Topical Medication PQRS Narrative: Smoking Status Former smoker Narcotic Agreement Date Signed 04/26/23 Hx Alcohol Use (MH) No Home Medications: Ambulatory Orders Butalb/APAP/Caff 50-325-40Mg [Fioricet 50-325-40] 1 - 2 tab PO Q4HR PRN 06/02/16 Famotidine 20 mg PO BID PRN 06/02/16 SUMAtriptan succinate [Imitrex] 25 mg PO DAILY PRN 06/02/16 Budesonide [Pulmicort Flexhaler] 2 puff INHALATION BID 06/30/16 Ergocalciferol (Vitamin D2) [Vitamin D2] 50,000 unit PO FR 06/30/16 Ketoconazole 2% Shampoo [Nizoral] 1 applic TOPICAL DIRECTED PRN 06/30/16 diphenhydrAMINE [Benadryl] 25 mg PO HS PRN 06/30/16 Melatonin [Melatonin Tr] 5 mg PO HS 08/28/18 Umeclidinium [place] [Incruse Ellipta] 1 puff INHALATION DAILY 04/30/19 Albuterol Nebulized [Ventolin Nebulized] 2.5 mg INHALATION BID 01/01/20 Finasteride [Proscar] 5 mg PO DAILY 06/17/20 Loratadine-Pseudoeph 10-240 mg [Claritin-D 24 Hour] 1 tab PO DAILY PRN 06/17/20 Albuterol Sulfate [Albuterol Sulfate Hfa] 2 puff PO Q6H PRN 06/03/21 Fluconazole [Diflucan] 100 mg PO DAILY PRN 06/03/21 Zolpidem [Ambien] 5 mg PO HS PRN 06/03/21 Arformoterol Tartrate [Brovana] 15 mcg INHALATION RT-BID 01/19/22 Budesonide [Pulmicort] 1 mg INHALATION BID 01/19/22 Lidocaine 5% Patch [Lidoderm 5% Patch] 1 each TP QAM 30 Days #30 patch 04/10/24 Naloxone HCl [Narcan] 4 mg NASAL ONCE 180 Days #1 each 04/10/24 HYDROcodone/APAP 10-325MG [[place] 10-325] 1 tab PO Q4HR PRN 30 Days #180 tab 07/31/24 HYDROcodone/APAP 10-325MG [[place] 10-325] 1 tab PO Q4HR PRN 30 Days #180 tab 07/31/24 diazePAM [Valium] 5 mg PO DAILY PRN 30 Days #15 tab 07/31/24 Controlled Substance Measures - Controlled Substance Measures Is patient prescribed a controlled substance at discharge?: Yes When asked, does pt state using other controlled substances?: Yes If prescribed controlled substance>3 days was MAPS reviewed?: Yes
== END ==
LOC: PNWHC3 09:14
PROVIDERS: ATTEND Specialist
DX: M47.26 Other spondylosis with radiculopathy, lumbar region (principal); G89.29 Other chronic pain; Z79.891 Long term (current) use of opiate analgesic; Z87.891 Personal history of nicotine dependence; Z88.8 Allergy status to other drugs, medicaments and biological substances; Z88.6 Allergy status to analgesic agent; Z91.030 Bee allergy status; Z88.5 Allergy status to narcotic agent; Z91.041 Radiographic dye allergy status; Z88.4 Allergy status to anesthetic agent; Z91.040 Latex allergy status; Z88.0 Allergy status to penicillin; Z88.2 Allergy status to sulfonamides; Z88.9 Allergy status to unspecified drugs, medicaments and biological substances
CPT/HCPCS: 99211

== ENCOUNTER → 2024-09-25 | Outpatient (CLI) | payer OTHER ==
[2024-09-25 09:48] VITALS: BP 113/63; PULSE 107; RESP 18; TEMP 98.2
--- NOTE | 2024-09-25 15:54 | P.PAINPG ---
Objective - Vital Signs Vital signs: Intake & Output 09/24/24 09/25/24 09/25/24 18:59 06:59 18:59 Weight 136.078 kg PQRS Measure Charge Sheet Comment: A 69 yr old wheelchair bound male w peyton Rojas at side on portable O2 with a history of severe and chronic LBP x 30 years secondary to radiculopathy, spondylosis with facet arthropathy without myelopathy presents today for medication refills. Pain level is provoked at 8 /10 in intensity, constant, localized in the lumbar spine, predominantly axial, sharp in character w occasional R knee and ankle shooting pain. Pain is provoked by over activity or walking for periods of 20 min or more. Pain is alleviated with PT in 2019, home guided exercises since 2019, chiropractic treatments years ago which were ineffective, heat, ice, medications, topical, reclining, use of a cane for ambulatory assistance, repositioning and rest. Pt fell and bruised his R ankle. He was told he has cellulitis and is currently on Ciprofloxacin for it. Advised pt to elevate RLE at least 2h a day to reduce swelling. Interventional pain procedures completed include DENIES Patient is currently on [place] 10/325mg #180, Valium #15, Lidoderm 5% Patient denies any side effects of the medication(s), denies excessive drowsiness or sleepiness, denies suicidal ideation and reports that the current pain medication is helping to control the pain and improve activities of daily living. Patient denies any motor or sensory deficits. Patient denies any fever or night sweats, denies any change in the bowel movements or urination. Physical Examination: -Constitutional: Cooperative. Not in acute distress . - Neurologic: Cranial nerve II to XII intact. No focal neurological deficits. - Psychatric: Alert & oriented x 3. Matching mood & appropriate affect. Judgment and insight intact. - Musculoskeletal: Cervical spine: Muscle bulk/ tone/ strength in the bilateral upper extremities normal Vertebral body tenderness to palpation over Spurling test positive Distraction test positive Facet loading test positive TTP Thoracic spine Muscle bulk / tone/ strength in the bilateral paraspinal muscles normal Vertebral body tender to palpation over Facet loading test positive TTP Lumbar spine: +R Ankle 3+non pitting edema Motor bulk/ tone/ strength lower extremities , thigh and legs : 5/5 Deep tendon reflexes : Normal Knee Jerk. Normal Ankle Jerk . Vertebral body tenderness to palpation over L3, L4, L5 Lumbar Facet Loading Test positive Straight Leg Raise: positive at 30 degrees right side/ left side Gaenslen's Test positive Sacral spine : Severe tenderness over the Sacroiliac joint: right side / left side Range of motion: Flexion of the lumbar spine <60 degrees Range of motion: Extension of the lumbar spine <20 degrees Gaenslen's Test positive right side / left side Porsche test: positive right side / left side Thigh Thrust Test positive right side / left side Sacral Thrust Test positive right side / left side Assessment and plan: Chronic LBP secondary to radiculopathy, spondylosis with facet arthropathy without myelopathy Chronic and current use of high-risk medication (Opioids). The patient was counseled about risk of opioid use, psychological risk associated with opioids and was orally counseled to not overuse , divert or sell medications. Pt is to store medication in a safe location. The patient is counseled against driving while using narcotic me dications and also not to use alcohol or any illicit recreational drugs. Patient verbalized understanding that the lack of compliance will result in failure to renew narcotic prescription(s) as well as possible discharge from the clinic Diagnoses, prognosis and treatment options including but not limited to physical therapy, surgical interventions, interventional therapies and medic ation management including narcotics and adjuvant medication were discussed. All patient questions answered . Narcotic agreement updated 07/31/24. MAPS reviewed and it was appropriate. UDS collected 09/25/24. Prescription refill for [place] 10/325mg #180, Valium #15, Lidoderm 5% #30 w 1 RF. Continue Narcan, use, side effects, adverse reactions, safe storage discussed. Pt acknowledged understanding. I have spent less than 30 minutes on patient care today. Dr Hartley was available by phone for the evaluation of this patient. The time was used to review the medical records including relevant urine studies and Prescription history (MAPs), review of the available imaging, evaluation and examination of the patient, coordination of care with the medical staff and if applicable referring physicians, as well as creation of the medical record PQRS Narrative: Smoking Status Former smoker Narcotic Agreement Date Signed 07/31/24 Hx Alcohol Use (MH) No Home Medications: Ambulatory Orders Butalb/APAP/Caff 50-325-40Mg [Fioricet 50-325-40] 1 - 2 tab PO Q4HR PRN 06/02/16 Famotidine 20 mg PO BID PRN 06/02/16 SUMAtriptan succinate [Imitrex] 25 mg PO DAILY PRN 06/02/16 Budesonide [Pulmicort Flexhaler] 2 puff INHALATION BID 06/30/16 Ergocalciferol (Vitamin D2) [Vitamin D2] 50,000 unit PO FR 06/30/16 Ketoconazole 2% Shampoo [Nizoral] 1 applic TOPICAL DIRECTED PRN 06/30/16 diphenhydrAMINE [Benadryl] 25 mg PO HS PRN 06/30/16 Melatonin [Melatonin Tr] 5 mg PO HS 08/28/18 Umeclidinium [place] [Incruse Ellipta] 1 puff INHALATION DAILY 04/30/19 Albuterol Nebulized [Ventolin Nebulized] 2.5 mg INHALATION BID 01/01/20 Finasteride [Proscar] 5 mg PO DAILY 06/17/20 Loratadine-Pseudoeph 10-240 mg [Claritin-D 24 Hour] 1 tab PO DAILY PRN 06/17/20 Albuterol Sulfate [Albuterol Sulfate Hfa] 2 puff PO Q6H PRN 06/03/21 Fluconazole [Diflucan] 100 mg PO DAILY PRN 06/03/21 Zolpidem [Ambien] 5 mg PO HS PRN 06/03/21 Arformoterol Tartrate [Brovana] 15 mcg INHALATION RT-BID 01/19/22 Budesonide [Pulmicort] 1 mg INHALATION BID 01/19/22 Lidocaine 5% Patch [Lidoderm 5% Patch] 1 each TP QAM 30 Days #30 patch 04/10/24 Naloxone HCl [Narcan] 4 mg NASAL ONCE 180 Days #1 each 04/10/24 HYDROcodone/APAP 10-325MG [[place] 10-325] 1 tab PO Q4HR PRN 30 Days #180 tab 07/31/24 HYDROcodone/APAP 10-325MG [[place] 10-325] 1 tab PO Q4HR PRN 30 Days #180 tab 07/31/24 diazePAM [Valium] 5 mg PO DAILY PRN 30 Days #15 tab 07/31/24 Controlled Substance Measures - Controlled Substance Measures Is patient prescribed a controlled substance at discharge?: Yes When asked, does pt state using other controlled substances?: Yes If prescribed controlled substance>3 days was MAPS reviewed?: Yes
== END ==
LOC: PNWHC3 09:28
PROVIDERS: ATTEND Specialist
DX: M47.26 Other spondylosis with radiculopathy, lumbar region (principal); F11.90 Opioid use, unspecified, uncomplicated; Z88.6 Allergy status to analgesic agent; Z88.8 Allergy status to other drugs, medicaments and biological substances; Z91.030 Bee allergy status; Z88.5 Allergy status to narcotic agent; Z88.4 Allergy status to anesthetic agent; Z88.1 Allergy status to other antibiotic agents; Z88.2 Allergy status to sulfonamides; Z88.3 Allergy status to other anti-infective agents; Z91.040 Latex allergy status; Z91.041 Radiographic dye allergy status; Z87.891 Personal history of nicotine dependence
CPT/HCPCS: 80307; G0463; 99212

== ENCOUNTER → 2024-12-04 | Outpatient (CLI) | payer OTHER ==
[2024-12-04 09:42] VITALS: BP 122/78; PULSE 92; RESP 18
--- NOTE | 2024-12-09 16:16 | P.PAINPG ---
PQRS Measure Charge Sheet Comment: A 69 yr old wheelchair bound male w peyton Rojas at side on portable O2 with a history of severe and chronic LBP x 30 years secondary to radiculopathy, spondylosis with facet arthropathy without myelopathy presents today for medication refills. Pain level is provoked at 8 /10 in intensity, constant, localized in the lumbar spine, predominantly axial, sharp in character w occasional R knee and ankle shooting pain. Pain is provoked by over activity or walking for periods of 20 min or more. Pain is alleviated with PT in 2019, home guided exercises since 2019, chiropractic treatments years ago which were ineffective, heat, ice, medications, topical, reclining, use of a cane for ambulatory assistance, repositioning and rest. Pt fell and bruised his R ankle. He was told he has cellulitis and is currently on Ciprofloxacin for it. Advised pt to elevate RLE at least 2h a day to reduce swelling. Interventional pain procedures completed include DENIES Patient is currently on [place] 10/325mg #180, Valium #15, Lidoderm 5% Patient denies any side effects of the medication(s), denies excessive drowsiness or sleepiness, denies suicidal ideation and reports that the current pain medication is helping to control the pain and improve activities of daily living. Patient denies any motor or sensory deficits. Patient denies any fever or night sweats, denies any change in the bowel movements or urination. Physical Examination: -Constitutional: Cooperative. Not in acute distress . - Neurologic: Cranial nerve II to XII intact. No focal neurological deficits. - Psychatric: Alert & oriented x 3. Matching mood & appropriate affect. Judgment and insight intact. - Musculoskeletal: Cervical spine: Muscle bulk/ tone/ strength in the bilateral upper extremities normal Vertebral body tenderness to palpation over Spurling test positive Distraction test positive Facet loading test positive TTP Thoracic spine Muscle bulk / tone/ strength in the bilateral paraspinal muscles normal Vertebral body tender to palpation over Facet loading test positive TTP Lumbar spine: +R Ankle 3+non pitting edema Motor bulk/ tone/ strength lower extremities , thigh and legs : 5/5 Deep tendon reflexes : Normal Knee Jerk. Normal Ankle Jerk . Vertebral body tenderness to palpation over L3, L4, L5 Lumbar Facet Loading Test positive Straight Leg Raise: positive at 30 degrees right side/ left side Gaenslen's Test positive Sacral spine : Severe tenderness over the Sacroiliac joint: right side / left side Range of motion: Flexion of the lumbar spine <60 degrees Range of motion: Extension of the lumbar spine <20 degrees Gaenslen's Test positive right side / left side Porsche test: positive right side / left side Thigh Thrust Test positive right side / left side Sacral Thrust Test positive right side / left side Assessment and plan: Chronic LBP secondary to radiculopathy, spondylosis with facet arthropathy without myelopathy Chronic and current use of high-risk medication (Opioids). The patient was counseled about risk of opioid use, psychological risk associated with opioids and was orally counseled to not overuse , divert or sell medications. Pt is to store medication in a safe location. The patient is counseled against driving while using narcotic medications and also not to use alcohol or any illicit recreational drugs. Patient verbalized understanding that the lack of compliance will result in failure to renew narcotic prescription(s) as well as possible discharge from the clinic Diagnoses, prognosis and treatment options including but not limited to physical therapy, surgical interventions, interventional therapies and me dication management including narcotics and adjuvant medication were discussed. All patient questions answered . Narcotic agreement updated 07/31/24. MAPS reviewed and it was appropriate. UDS 09/25/24 reviewed and consistent. Prescription refill for [place] 10/325mg #180, Valium #15, Lidoderm 5% #30 w 1 RF. Continue Narcan, use, side effects, adverse reactions, safe storage discussed. Pt acknowledged understanding. I have spent less than 30 minutes on patient care today. Dr Hartley was available by phone for the evaluation of this patient. The time was used to review the medical records including relevant urine studies and Prescription history (MAPs), review of the available imaging, evaluation and examination of the patient, coordination of care with the medical staff and if applicable referring physicians, as well as creation of the medical record PQRS Narrative: Smoking Status Former smoker Narcotic Agreement Date Signed 07/31/24 Hx Alcohol Use (MH) No Home Medications: Ambulatory Orders Butalb/APAP/Caff 50-325-40Mg [Fioricet 50-325-40] 1 - 2 tab PO Q4HR PRN 06/02/16 Famotidine 20 mg PO BID PRN 06/02/16 SUMAtriptan succinate [Imitrex] 25 mg PO DAILY PRN 06/02/16 Budesonide [Pulmicort Flexhaler] 2 puff INHALATION BID 06/30/16 Ergocalciferol (Vitamin D2) [Vitamin D2] 50,000 unit PO FR 06/30/16 Ketoconazole 2% Shampoo [Nizoral] 1 applic TOPICAL DIRECTED PRN 06/30/16 diphenhydrAMINE [Benadryl] 25 mg PO HS PRN 06/30/16 Melatonin [Melatonin Tr] 5 mg PO HS 08/28/18 Umeclidinium [place] [Incruse Ellipta] 1 puff INHALATION DAILY 04/30/19 Albuterol Nebulized [Ventolin Nebulized] 2.5 mg INHALATION BID 01/01/20 Finasteride [Proscar] 5 mg PO DAILY 06/17/20 Loratadine-Pseudoeph 10-240 mg [Claritin-D 24 Hour] 1 tab PO DAILY PRN 06/17/20 Albuterol Sulfate [Albuterol Sulfate Hfa] 2 puff PO Q6H PRN 06/03/21 Fluconazole [Diflucan] 100 mg PO DAILY PRN 06/03/21 Zolpidem [Ambien] 5 mg PO HS PRN 06/03/21 Arformoterol Tartrate [Brovana] 15 mcg INHALATION RT-BID 01/19/22 Budesonide [Pulmicort] 1 mg INHALATION BID 01/19/22 Naloxone HCl [Narcan] 4 mg NASAL ONCE 180 Days #1 each 04/10/24 HYDROcodone/APAP 10-325MG [[place] 10-325] 1 tab PO Q4HR PRN 30 Days #180 tab HYDROcodone/APAP 10-325MG [[place] 10-325] 1 tab PO Q4HR PRN 30 Days #180 tab 12/04/24 Lidocaine 5% Patch [Lidoderm 5% Patch] 1 each TP QAM 30 Days #30 patch 12/04/24 diazePAM [Valium] 5 mg PO DAILY PRN 30 Days #15 tab 12/04/24 Controlled Substance Measures - Controlled Substance Measures Is patient prescribed a controlled substance at discharge?: Yes When asked, does pt state using other controlled substances?: Yes If prescribed controlled substance>3 days was MAPS reviewed?: Yes
== END ==
LOC: PNWHC3 08:48
PROVIDERS: ATTEND Specialist
DX: M47.26 Other spondylosis with radiculopathy, lumbar region (principal); Z79.891 Long term (current) use of opiate analgesic; Z88.6 Allergy status to analgesic agent; Z91.030 Bee allergy status; Z91.041 Radiographic dye allergy status; Z88.5 Allergy status to narcotic agent; Z91.040 Latex allergy status; Z88.0 Allergy status to penicillin; Z88.2 Allergy status to sulfonamides; Z88.8 Allergy status to other drugs, medicaments and biological substances; Z87.891 Personal history of nicotine dependence
CPT/HCPCS: 99212